=== PATIENT | female | born 2000 | race Asian ===

== ENCOUNTER 2023-08-16 21:20 | Inpatient (IN) ==
[2023-08-16] MEDS: ONDANSETRON INJ 2 MG/ML 2 ML VIAL IV STA (21:43)
[2023-08-16 22:08] LABS: Hematocrit (blood only) 37.1 % (37.0-47.0); Hemoglobin 12.1 g/dl (12.0-16.0); Mean Corpuscular Hgb Conc 32.6 g/dL (32.0-36.0); Mean Corpuscular Volume 76.7 fL (80.0-100.0); Mean Platelet Volume 8.8 fL (9.4-12.4); Platelet Count 420 K/uL (130-400); RDW Coefficient of Variation 14.1 % (11.5-14.5); RDW Standard Deviation 38.6 fL (36.4-46.3); Red Blood Count 4.84 M/uL (4.20-5.40); White Blood Count 17.29 K/ul (4.8-10.8)
--- NOTE | 2023-08-16 22:12 | Emergency Department Note ---
History of Present Illness General Chief complaint: Abdominal Pain Stated complaint: SOB, VOMITING, ABDOMINAL PAIN/PERSISTANT Time Seen by Provider: 08/16/23 21:59 History of Present Illness Maximum Pain Intensity: 8 This is a 22-year-old female presenting to the emergency department for evaluation of upper abdominal pain, nausea, and vomiting symptoms. Symptoms began around 5 PM, roughly 4-1/2 hours prior to her arrival to the ER. Patient rates the discomfort an 8/10. She has not had fevers or chills. No known exposure to disease. She denies chance of . No history of abdominal surgery. Home Medications Medication Instructions Recorded Confirmed Type acetaminophen 325 mg tablet 650 mg PO QID PRN Pain 08/16/23 08/16/23 History (Tylenol) Allergies Allergy/AdvReac Type Severity Reaction Status Date / Time No Known Allergies Allergy Unverified 08/16/23 22:58 Past Med/Surg History Social History Smoking Status: Never smoker Preferred Language: Yakut Feels Safe at Home: Yes Review of Systems A total of 10 systems reviewed and were otherwise negative Physical Exam Vital Signs Vital Signs - 24 hr 08/16/23 21:28 08/16/23 23:48 Temperature 36.7 C Temperature Source Temporal Artery Scan Pulse Rate 107 H Pulse Rate [Finger] 124 H Pulse Rhythm [Finger] Regular Pulse Strength [Finger] Normal Respiratory Rate 18 18 Respiratory Effort / Characteristics Non-Labored Spontaneous Non-Labored Respiratory Depth Normal Normal Blood Pressure 116/94 Blood Pressure [Left Arm] 115/80 Blood Pressure Mean 101 Blood Pressure Mean [Left Arm] 91 Blood Pressure Position Right Lateral Pulse Oximetry 100 100 Oxygen Delivery Method Room Air Room Air Sepsis Recent Fever Within 48 Hours No Sepsis New/Unexplained Change in Mental Status No Sepsis Action Taken by Nursing No Action Required VITALS: Vitals are noted on the nurse's note and reviewed by myself. Vital signs stable. GENERAL: Well-developed, well-nourished, female, who is in no acute distress and resting comfortably. Patient is cooperative with the examination. HEAD: Normocephalic atraumatic. NECK: Supple without nuchal rigidity. No lymphadenopathy. No thyromegaly. Cervical spine is nontender. HEART: Regular rate and rhythm without murmurs gallops or rubs. LUNGS: Clear to auscultation bilaterally without wheezes, rales or rhonchi. No retractions or accessory muscle use. ABDOMEN: Positive normal bowel sounds x 4. Soft, nontender, without masses or organomegaly. No guarding or rebound tenderness. MUSCULOSKELETAL: No muscle atrophy, erythema, or edema noted. Full range of motion in all extremities. Course Administered Medications Sodium Chloride (Nss) 1,000 mls @ 125 mls/hr IV .Q8H LUCRECIA Stop: 09/15/23 23:44 Last Admin: 08/17/23 00:01 Dose: 125 mls/hr Documented By: ALANNA Discontinued Medications Sodium Chloride (Nss) 1,000 mls @ 999 mls/hr IV .Q1H1M LUCRECIA Stop: 08/16/23 23:15 Last Infusion: 08/17/23 00:38 Dose: Infused Documented By: Admin: 08/16/23 23:32 Dose: 999 mls/hr Documented By: ALANNA Pantoprazole Sodium 40 mg/ (Syringe) 10 mls @ 5 mls/min IV NOW ONE Stop: 08/16/23 22:08 Last Admin: 08/16/23 22:29 Dose: 5 mls/min Documented By: ERICH Piperacillin Sod/Tazobactam Sod (Zosyn) 4.5 gm in 100 mls @ 200 mls/hr IV NOW ONE Stop: 08/17/23 00:13 Last Infusion: 08/17/23 00:39 Dose: Infused Documented By: Admin: 08/17/23 00:00 Dose: 200 mls/hr Documented By: ALANNA Lorazepam (Lorazepam 1 Mg/1 Ml Syr Ed Inj Use) 0.5 mg IV ONE STA Stop: 08/16/23 23:20 Last Admin: 08/17/23 01:12 Dose: Not Given Documented By: ALANNA Morphine Sulfate (Morphine Sulfate 4 Mg/Ml 1 Ml Carp\Vial) 4 mg IV Q30M PRN PRN Reason: Pain Stop: 08/30/23 23:38 Last Admin: 08/16/23 23:44 Dose: 4 mg Documented By: ALANNA Ondansetron HCl (Ondansetron Inj 2 Mg/Ml 2 Ml Vial) 4 mg IV NOW STA Stop: 08/16/23 21:34 Last Admin: 08/16/23 21:43 Dose: 4 mg Documented By: WILLIAMS Medical Decision Making Differential Diagnosis Differential diagnosis: Etiologies such as biliary colic, cholecystitis, hepatitis, pancreatitis, cardiac disease, pancreatitis, gastritis, peptic ulcer disease, appendicitis, cystitis, diverticulitis, mesenteric ischemia, inflammatory bowel disease, ileus, bowel obstruction, testicular/adnexal torsion, aortic pathology, shingles, as well as others were considered Laboratory Data 08/16/23 21:46 08/16/23 21:46 Lab Results 08/16/23 Range/Units 21:46 WBC 17.29 H (4.8-10.8) K/ul RBC 4.84 (4.20-5.40) M/uL Hgb 12.1 (12.0-16.0) g/dl Hct 37.1 (37.0-47.0) % MCV 76.7 L (80.0-100.0) fL MCH 25.0 (25.0-34.0) pg MCHC 32.6 (32.0-36.0) g/dL RDW Std Deviation 38.6 (36.4-46.3) fL RDW Coeff of Joshua 14.1 (11.5-14.5) % Plt Count 420 H (130-400) K/uL MPV 8.8 L (9.4-12.4) fL Immature Gran % (Auto) 0.5 % Neut % (Auto) 90.2 % Lymph % (Auto) 6.2 % [place] % (Auto) 2.8 % Eos % (Auto) 0.1 % Baso % (Auto) 0.2 % Neut # (Auto) 15.60 H (1.40-6.50) K/uL Lymph # (Auto) 1.07 L (1.20-3.40) K/uL [place] # (Auto) 0.48 (0.11-0.59) K/uL Eos # (Auto) 0.01 (0.00-0.50) K/uL Baso # (Auto) 0.04 (0.00-0.20) K/uL Immature Gran # (Auto) 0.09 (0.01-0.20) K/uL Sodium 136 (136-145) mmol/L Potassium 3.5 (3.5-5.1) mmol/L Chloride 104 (98-107) mmol/L Carbon Dioxide 21 (21-32) mmol/L Anion Gap 11 (3-11) BUN 10 (6-23) mg/dl Creatinine 0.59 L (0.6-1.2) mg/dl Est Cr Clr Drug Dosing 114.3 ml/min Est GFR ( Amer) > 150.0 ml/min Est GFR (Non-Af Amer) 131.9 ml/min BUN/Creatinine Ratio 16.9 (10-20) Glucose 138 H (70-99(Fasting)) mg/dl Calcium 9.8 (8.6-10.3) mg/dl Total Bilirubin 0.5 (0.2-1.0) mg/dl AST 12 L (13-39) U/L ALT 9 (7-52) U/L Alkaline Phosphatase 71 (34-104) U/L Total Protein 8.6 H (6.0-8.3) gm/dl Albumin 4.5 (3.4-5.0) gm/dl Globulin 4.1 H (2.5-4.0) gm/dl Albumin/Globulin Ratio 1.1 (0.9-2) Lipase 27 (11-82) U/L HCG, Qual Negative (Negative) Imaging Data Radiologist's Impression: Abdomen/Pelvis CT 08/16/23 22:07 CR Exam(s): CT ABDOMEN + PELVIS Without Contrast EXAM: CT Abdomen and Pelvis Without Intravenous Contrast CLINICAL HISTORY: Reason for exam: upper abdominal pain, n/v. TECHNIQUE: Axial computed tomography images of the abdomen and pelvis without intravenous contrast. CTDI is 7.65 mGy and DLP is 326.39 mGy-cm. Automated exposure control was utilized for the study. A dose lowering technique was utilized adhering to the principles of ALARA. COMPARISON: No relevant prior studies available. FINDINGS: Lung bases: Unremarkable. No mass. No consolidation. ABDOMEN: Liver: Unremarkable. Gallbladder and bile ducts: Unremarkable. No calcified stones. No ductal dilation. Pancreas: Unremarkable. No ductal dilation. Spleen: Unremarkable. No splenomegaly. Adrenals: Unremarkable. No mass. Kidneys and ureters: Unremarkable. No obstructing stones. No hydronephrosis. Stomach and bowel: Circumferential wall thickening of the terminal ileum, concerning for enteritis. This has contributed to low-grade partial small bowel obstruction. PELVIS: Appendix: Mildly prominent appendix measuring up to 6 mm, with surrounding inflammation, concerning for appendicitis. Bladder: Unremarkable. No stones. Reproductive: Unremarkable as visualized. ABDOMEN and PELVIS: Intraperitoneal space: Unremarkable. No free air. No significant fluid collection. Bones/joints: No acute fracture. No dislocation. Soft tissues: Unremarkable. Vasculature: Unremarkable. No abdominal aortic aneurysm. Lymph nodes: Unremarkable. No enlarged lymph nodes. IMPRESSION: 1. Mildly prominent appendix measuring up to 6 mm, with surrounding inflammation, concerning for appendicitis. 2. Circumferential wall thickening of the terminal ileum, concerning for enteritis. This has contributed to low-grade partial small bowel obstruction. Communications: Verify Receipt Electronically signed by: Jose Hdz MD 08/16/23 23:36 PM MDM Narrative Physical exam and history were performed. Nursing notes, EMR, and Medication List were personally reviewed. No social concerns were identified as barriers to patients care. Patient appears to have abdominal pain bringing her to the ER. IV access was established and labs were obtained. Most of her discomfort is upper abdomen, however symptoms are relatively new. She was given IV Zofran and IV Protonix here in the ER. Patient has persistent hiccups and was given a small dose of Ativan to try and abort these. Patient's blood work is as above and was reviewed. She does have an elevated white blood cell count of 17,000. She does not have significant anemia or gross electrolyte imbalance. She is not . Lipase and transaminases are not diagnostic. Because of her pain and elevated white count she was sent to CT scan for imaging of her abdomen and pelvis with CT scan. CT scan was reviewed by myself and radiology and may suggest early appendicitis. I did engage with the surgical team, who did evaluate the patient here in the ER. I attempted to speak with the patient's family by telephone, however [place] and the telephone continued to disconnect. Ultimately the patient was given morphine and Zosyn here in the ER. Please see the hospitalist/surgical team dictations for further patient course, plan, disposition. The chart was completed utilizing [employer] Voice Recognition Software. Grammatical errors, random word insertions, pronoun errors, and incomplete sentences are an occasional consequence of this system due to software limitations, ambient noise, and hardware issues. Any formal questions or concerns about the content, text, or information contained within the body of this dictation should be directly addressed to the provider for clarification. . Impression & Plan Acute appendicitis Discharge Plan Visit Data Chief Complaint: Abdominal Pain Stated Complaint: SOB, VOMITING, ABDOMINAL PAIN/PERSISTANT ED Provider: Raul Robin ED Midlevel Provider: Taqueria Gonzalez Discharge Problem: Acute appendicitis Patient Disposition: Admitted As Inpatient Discharge Instructions Interventions: ED Discharge Assessment Last Done: 08/17/23 01:56
[2023-08-16 22:23] LABS: Alanine Aminotransferase 9 U/L (7-52); Albumin Globulin Ratio 1.1 (0.9-2); Albumin Level 4.5 gm/dl (3.4-5.0); Alkaline Phosphatase 71 U/L (34-104); Anion Gap 11 (3-11); Aspartate Aminotransferase 12 U/L (13-39); BUN Creatinine Ratio 16.9 (10-20); Bilirubin,Total 0.5 mg/dl (0.2-1.0); Blood Urea Nitrogen 10 mg/dl (6-23); Calcium 9.8 mg/dl (8.6-10.3); Carbon Dioxide 21 mmol/L (21-32); Chloride 104 mmol/L (98-107); Creatinine Clr Calc Pharmacy 114.3 ml/min; Est GFR (African American) > 150.0 ml/min; Est GFR (Non-African American) 131.9 ml/min; Globulin 4.1 gm/dl (2.5-4.0); Glucose 138 mg/dl (70-99(Fasting)); Lipase 27 U/L (11-82); Potassium 3.5 mmol/L (3.5-5.1); Sodium 136 mmol/L (136-145); Total Protein 8.6 gm/dl (6.0-8.3)
[2023-08-16 22:28] LABS: Basophils # (auto) 0.04 K/uL (0.00-0.20); Basophils % (auto) 0.2 %; Eosinophils # (auto) 0.01 K/uL (0.00-0.50); Eosinophils % (auto) 0.1 %; Immature Granulocytes # (auto) 0.09 K/uL (0.01-0.20); Immature Granulocytes % (auto) 0.5 %; Lymphocytes # (auto) 1.07 K/uL (1.20-3.40); Lymphocytes % (auto) 6.2 %; Monocytes # (auto) 0.48 K/uL (0.11-0.59); Monocytes % (auto) 2.8 %; Neutrophils % (auto) 90.2 %
[2023-08-16 22:29] LABS: Pregnancy Test, Serum Negative (Negative)
[2023-08-16] MEDS: PANTOprazole 40 MG in SYRINGE 0 ML IV ONE (22:29)
[2023-08-16] MEDS: SODIUM CHLORIDE 0.9% 1,000 ML IV SCH (23:32)
--- NOTE | 2023-08-16 23:37 | CT Scan Report ---
Exam(s): CT ABDOMEN + PELVIS Without Contrast EXAM: CT Abdomen and Pelvis Without Intravenous Contrast CLINICAL HISTORY: Reason for exam: upper abdominal pain, n/v. TECHNIQUE: Axial computed tomography images of the abdomen and pelvis without intravenous contrast. CTDI is 7.65 mGy and DLP is 326.39 mGy-cm. Automated exposure control was utilized for the study. A dose lowering technique was utilized adhering to the principles of ALARA. COMPARISON: No relevant prior studies available. FINDINGS: Lung bases: Unremarkable. No mass. No consolidation. ABDOMEN: Liver: Unremarkable. Gallbladder and bile ducts: Unremarkable. No calcified stones. No ductal dilation. Pancreas: Unremarkable. No ductal dilation. Spleen: Unremarkable. No splenomegaly. Adrenals: Unremarkable. No mass. Kidneys and ureters: Unremarkable. No obstructing stones. No hydronephrosis. Stomach and bowel: Circumferential wall thickening of the terminal ileum, concerning for enteritis. This has contributed to low-grade partial small bowel obstruction. PELVIS: Appendix: Mildly prominent appendix measuring up to 6 mm, with surrounding inflammation, concerning for appendicitis. Bladder: Unremarkable. No stones. Reproductive: Unremarkable as visualized. ABDOMEN and PELVIS: Intraperitoneal space: Unremarkable. No free air. No significant fluid collection. Bones/joints: No acute fracture. No dislocation. Soft tissues: Unremarkable. Vasculature: Unremarkable. No abdominal aortic aneurysm. Lymph nodes: Unremarkable. No enlarged lymph nodes. IMPRESSION: 1. Mildly prominent appendix measuring up to 6 mm, with surrounding inflammation, concerning for appendicitis. 2. Circumferential wall thickening of the terminal ileum, concerning for enteritis. This has contributed to low-grade partial small bowel obstruction. Communications: Verify Receipt Electronically signed by: Jose Hdz MD 08/16/23 23:36 PM
[2023-08-16] MEDS: MoRPHine SULFATE 4 MG/ML 1 ML CARP\\VIAL IV PRN (23:44)
--- NOTE | 2023-08-16 23:51 | History & Physical Report ---
Date of Service August 16, 2023 Assessment & Plan (1) Abdominal pain: Plan Due to the patient's clinical presentation, labs, and findings on imaging we will admit her to the hospital and proceed as follows: -provide analgesics -provide anti-emetics -implement npo status -provide IVF for hydration -initiate antibiotics in the form of zosyn -repeat labs in the am -it is not entirely certain if the patient has an appendicitis or is suffering from an enteritis or inflammatory bowel disease -will will monitor her clinically with the above noted treatment plans, and upon re-evaluation in the morning by my attending surgeon, Dr. Jayson Serna, a determination will be made if the patient requires an appendectomy. At the time of my interview the patient was nontoxic-appearing. She was normotensive and afebrile. She did have a noted tachycardia but I feel this may be somewhat secondary to dehydration and will hopefully improve with hydration measures. -SCDs will be used for DVT prophylaxis, no chemical means until it is ascertained if any surgical intervention will be required She will be a level 1 full code History of Present Illness Chief Complaint: Abdominal Pain 22 year old female presented to the ED secondary to abdominal pain. Primary Care Provider: NO PCP This is a 22-year-old female who presented the emergency department secondary to abdominal pain that began around 4:30 PM on 08/16/2023. The patient notes that the abdominal pain is primarily in the periumbilical region and she describes it as a sharp/piercing pain that comes and goes. She has had associated nausea and vomiting. She does note she took her temperature and she was not febrile. She does not report any palliative or provocative factors other than that the pain was relieved with morphine administered in the emergency department. She has never had any prior surgeries before. She did add that approximately 2 to 3 weeks ago she had similar pain but not as severe and this self resolved after sleeping for several hours Since arrival to the emergency department the patient has had labs and imaging which I independently reviewed. CT scan of the abdomen and pelvis showed the appendix was mildly prominent measuring approximately 6 mm with some surrounding inflammation. This raises concern for an appendicitis. The patient was also noted to have a circumferential wall thickening of the terminal ileum concerning for an enteritis which was also causing a partial small bowel obstruction. CBC reveal ed WBC was elevated at 17.2, hemoglobin and hematocrit were normal. Platelet count was 420K. Chemistry profile showed sodium and potassium were normal. BUN and Creatinine were non-elevated. A test was (-). At the time of my interview she was resting comfortably in bed and she was no distress. Concerning past medical history she denies any medical problems Concerning past surgical history she denies any surgeries Concerning allergies and medications she has no allergies and does not take any medicines Concerning social history she does not smoke Concerning family history there is no family history of inflammatory bowel disease Allergies Allergy/AdvReac Type Severity Reaction Status Date / Time No Known Allergies Allergy Unverified 08/16/23 22:58 Home Medications Medication Instructions Recorded Confirmed Type acetaminophen 325 mg tablet 650 mg PO QID PRN Pain 08/16/23 08/16/23 History (Tylenol) Past Med/Surg History Social History Smoking Status: Never smoker Second Hand Exposure: No; Do You Dip or Chew Tobacco: No; Hx Alcohol Use: Yes Alcohol type: other Hx Substance Use: No Preferred Language: Liberian Communication Ability: Effective Optical Lab Technician Required: No Beliefs That Will Affect Care: None Current Living Situation: Other Current Living Situation Comment: apartment with roommates Other Information That Helps Us Care for You: No Feels Safe at Home: Yes Safety Concerns: Feels Safe At This Time Assistive Devices: None Review of Systems Constitutional: no fever Ear, Nose, Mouth, Throat: no ear pain Respiratory: no cough and no dyspnea Cardiovascular: no chest pain Gastrointestinal: as per Subjective / HPI Genitourinary: no dysuria Musculoskeletal: no back pain Integumentary: no rash Neurologic: no localized weakness Physical Exam Constitutional: WD/WN, vitals as above Eyes: no conjunctival abnormality ENMT: Ears: no hearing impairment and no external ear abnormality Mouth: no oropharynx abnormality Neck: trachea midline Respiratory: normal respiratory effort; no respiratory distress and no labored breathing Cardiovascular: Rate/Rhythm: regular rate and regular rhythm Vessels: dorsalis pedis pulses present and radial pulses present Gastrointestinal (Abdomen): Patient's abdomen is soft and nondistended. Bowel sounds are present. The patient did have pain only in the periumbilical region directly over her umbilicus with deep palpation. There is no pain with palpation in the right lower quadrant over McBurney's point. No rebound tenderness or guarding was present. Musculoskeletal: No calf tenderness Skin: no rashes Neurologic: moves all extremities Psychiatric: A+Ox3, euthymic affect Results & Data Results & Data Vital Signs (Past 12 Hours) Vital Signs Temp Pulse Pulse Resp BP BP Pulse Ox 08/16/23 23:48 124 H 18 115/80 100 08/16/23 21:28 36.7 C 107 H 18 116/94 100 O2 Del Method 08/16/23 23:48 Room Air 08/16/23 21:28 Room Air Supervising Physician Co-Signing Physician Notes I personally saw and evaluated the patient with John Guan PA-C and agree with the assessment and plan. 22 yo female with acute appendicitis, less likely IBD Her CT images and results were personally viewed and interpreted by myself She has inflammation in the RLQ and a dilated appendix consistent with acute appendicitis I think the inflammation of the terminal ileum is secondary to her appendictitis Will admit the patient and take her to OR tomorrow for laparoscopic appendectomy, possible open Keep NPO, IVF, ABX, pain control PG Care Time/CCT Total # of Minutes Spent Total Time Spent with Patient: Total time spent is greater than 50% in coordination of care (as documented) at patient's floor/unit and/or counseling patient: Coding Level of Care Code 12126 INT INP/OBS CARE 3/75MIN Diagnoses Abdominal pain R10.9
[2023-08-17] MEDS: PIPERACILLIN/TAZOBACTAM 4.5 GM/100 ML BAG IV ONE
[2023-08-17] MEDS: SODIUM CHLORIDE 0.9% 1,000 ML IV SCH (00:01)
[2023-08-17] MEDS ORDERED: MoRPHine SULFATE 4 MG/ML 1 ML CARP\\VIAL IV PRN ×2 (01:08→13:24)
[2023-08-17] MEDS ORDERED: ONDANSETRON INJ 2 MG/ML 2 ML VIAL IV PRN ×2 (01:08→10:35)
[2023-08-17] MEDS ORDERED: ACETAMINOPHEN 1,000 MG/100 ML VIAL IV PRN (01:08)
[2023-08-17] MEDS: LORazepam 1 MG/1 ML SYR ED Inj Use IV STA (01:12)
[2023-08-17 04:24] LABS: Appearance Urine Clear (Clear); Bilirubin Urine Negative (Negative); Blood Urine Negative (Negative); Color Urine Yellow; Glucose Urine UA Negative (Negative); Ketones Urine 2+ (Negative); Leukocyte Esterase Urine Negative (Negative); Nitrite Urine Negative (Negative); Protein Urine Negative (Negative); Specific Gravity Urine 1.014 (1.000-1.030); Urobilinogen Urine Negative (Negative); pH Urine 8.5 (4.5-7.5)
[2023-08-17] MEDS: PIPERACILLIN/TAZOBACTAM 4.5 GM in DEXTROSE 5% MINI-B 100 ML IV SCH (06:23)
[2023-08-17 07:16] LABS: Basophils # (auto) 0.02 K/uL (0.00-0.20); Basophils % (auto) 0.2 %; Hematocrit (blood only) 30.5 % (37.0-47.0); Hemoglobin 9.9 g/dl (12.0-16.0); Immature Granulocytes # (auto) 0.04 K/uL (0.01-0.20); Immature Granulocytes % (auto) 0.3 %; Lymphocytes # (auto) 1.73 K/uL (1.20-3.40); Lymphocytes % (auto) 14.3 %; Mean Corpuscular Hemoglobin 24.9 pg (25.0-34.0); Mean Corpuscular Hgb Conc 32.5 g/dL (32.0-36.0); Mean Corpuscular Volume 76.6 fL (80.0-100.0); Mean Platelet Volume 9.1 fL (9.4-12.4); Monocytes # (auto) 0.87 K/uL (0.11-0.59); Monocytes % (auto) 7.2 %; Neutrophils # (auto) 9.48 K/uL (1.40-6.50); Platelet Count 339 K/uL (130-400); RDW Coefficient of Variation 14.3 % (11.5-14.5); RDW Standard Deviation 39.7 fL (36.4-46.3); Red Blood Count 3.98 M/uL (4.20-5.40); White Blood Count 12.14 K/ul (4.8-10.8)
[2023-08-17 07:26] LABS: Anion Gap 5 (3-11); BUN Creatinine Ratio 11.3 (10-20); Blood Urea Nitrogen 7 mg/dl (6-23); Calcium 8.1 mg/dl (8.6-10.3); Carbon Dioxide 25 mmol/L (21-32); Chloride 109 mmol/L (98-107); Creatinine Clr Calc Pharmacy 110.1 ml/min; Est GFR (African American) > 150.0 ml/min; Est GFR (Non-African American) 129.8 ml/min; Glucose 99 mg/dl (70-99(Fasting)); Sodium 139 mmol/L (136-145)
--- NOTE | 2023-08-17 09:11 | Surgery Progress Note ---
Date of Service August 17, 2023 Assessment & Plan (1) Acute appendicitis: Plan: Will plan on taking her today for laparoscopic appendectomy, possible open Consent was obtained, risks discussed including bleeding, infection, abscess, leak Admission and Anticipated Discharge Date Admission Date: August 17, 2023 Subjective Pt seen and examined. Still with RLQ abdominal pain, but improved. Afebrile. No N/V. Review of Systems Constitutional: no fever and no chills Physical Exam Constitutional: WD/WN, vitals as above Gastrointestinal (Abdomen): Inspection/Auscultation: abdomen normal to inspection; abdomen not distended Percussion/Palpation: + abdomen tender (RLQ) and abdomen soft; no guarding, abdomen not rigid and no hernia Results & Data Vital Signs (Past 12 Hours) Vital Signs Temp Pulse Pulse Resp BP BP Pulse Ox 08/17/23 07:23 36.6 C 85 18 122/67 99 08/17/23 02:56 08/17/23 02:56 36.4 C L 106 H 18 111/75 100 08/17/23 01:30 98 H 16 115/73 99 08/16/23 23:48 124 H 18 115/80 100 08/16/23 21:28 36.7 C 107 H 18 116/94 100 O2 Del Method 08/17/23 07:23 Room Air 08/17/23 02:56 Room Air 08/17/23 02:56 Room Air 08/17/23 01:30 Room Air 08/16/23 23:48 Room Air 08/16/23 21:28 Room Air PG Care Time/CCT Total # of Minutes Spent Total Time Spent with Patient: Total time spent is greater than 50% in coordination of care (as documented) at patient's floor/unit and/or counseling patient: Coding Level of Care Code 55407 SUB INP/OBS CARE 07/13MIN Diagnoses Acute appendicitis K35.80
[2023-08-17] MEDS: LACTATED RINGER'S 1,000 ML IV SCH ×2 (09:50→13:40)
--- NOTE | 2023-08-17 10:17 | Anesthesiology Consultation ---
Date of Service August 17, 2023 Assessment & Plan Chart Review Chart Review: Acceptable Risk for Surgery and Patient NOT seen in Pre Admission Testing Consults Requested none ASA [id number] Proposed Anesthesia Anesthesia Type: General Risk / Benefits Reviewed With: PT / POA / Parent / Guardian, Accepts Plan and Informed Consent Obtained History Surgery Operation Date: 08/17/23 11:25 Proposed Procedures p Laparoscopic Appendectomy - Jayson Serna, DO Height/Weight Height: 5 ft 2 in Weight: 48.2 kg Allergies Allergy/AdvReac Type Severity Reaction Status Date / Time No Known Allergies Allergy Verified 08/17/23 09:48 Medications Home Medications Medication Instructions Recorded Confirmed Last Taken acetaminophen 325 mg tablet 650 mg PO QID PRN Pain 08/16/23 08/16/23 Unknown (Tylenol) Active Medications Generic Name Dose Route Start Last Admin Trade Name Freq PRN Reason Stop Dose Admin Sodium Chloride 1,000 mls @ 125 mls/hr 08/16/23 23:45 08/17/23 00:01 Nss IV 09/15/23 23:44 125 mls/hr .Q8H LUCRECIA Administration Piperacillin Sod/Tazobactam 100 mls @ 25 mls/hr 08/17/23 06:00 08/17/23 06:23 Sod 4.5 gm/ Dextrose IV 08/27/23 01:14 25 mls/hr Q8H LUCRECIA Administration Protocol Lactated Ringer's 1,000 mls @ 15 mls/hr 08/17/23 09:45 08/17/23 09:50 Lr IV 09/16/23 09:44 15 mls/hr .Q24H LUCRECIA Administration NPO Date Last Intake of Fluids: 08/16/23 Time Last Intake of Fluids: 19:00 Date Last Intake of Solids: 08/16/23 Time Last Intake of Solids: 13:00 Exercise / Class Metabolic Activity 1 > 8 Run/Swim/Ski/Tennis Past Anesthesia History No Hx of Anesthesia Complications and No Family Hx of Anesthesia Complications History of PONV No Hx of PONV and No Hx of Motion Sickness Social History Smoking Status: Never smoker Do You Dip or Chew Tobacco: No Hx Alcohol Use: Yes Alcohol type: other alcohol intake frequency: holidays/special occasions only Hx Substance Use: No Physical Exam Vital Signs Last Vital Signs Temp 36.9 C 08/17/23 09:43 Pulse 108 H 08/17/23 09:43 Resp 20 08/17/23 09:43 BP 109/76 08/17/23 09:43 Pulse Ox 100 08/17/23 09:43 O2 Del Method Room Air 08/17/23 09:43 Constitutional not cachectic ENMT Mouth: no dentition abnormality Thyromental Distance: < 3.5 Finger Breadths Mallampati Class: II Neck normal visual inspection and trachea midline; neck extension not limited Respiratory normal respiratory effort Auscultation: lungs clear to auscultation bilaterally Cardiovascular Rate/Rhythm: regular rate and regular rhythm Heart Sounds: no murmur Vessels: no carotid bruit Musculoskeletal Spine: normal cervical ROM and no pain with cervical ROM Extremities: extremities normal to inspection; full ROM of extremities Neurologic moves all extremities Motor/Sensory: no sensory deficit Psychiatric Orientation: alert and oriented x 3 Testing Laboratory Results 08/17/23 06:51 08/17/23 06:51 Urine Color Yellow 08/17/23 02:05 Urine Appearance Clear (Clear) 08/17/23 02:05 Urine pH 8.5 (4.5-7.5) H 08/17/23 02:05 Ur Specific [place] 1.014 (1.000-1.030) 08/17/23 02:05 Urine Protein Negative (Negative) 08/17/23 02:05 Urine Glucose (UA) Negative (Negative) 08/17/23 02:05 Urine Ketones 2+ (Negative) H 08/17/23 02:05 Urine Nitrite Negative (Negative) 08/17/23 02:05 Ur Leukocyte Esterase Negative (Negative) 08/17/23 02:05
[2023-08-17] MEDS ORDERED: FLUMAZENIL 0.1 MG/1 ML 10 ML VIAL IV PRN (10:35)
[2023-08-17] MEDS ORDERED: ePHEDrine sulfate 50 MG/ML AMP IV PRN (10:35)
[2023-08-17] MEDS ORDERED: PROMETHAZINE HCL 6.25 MG in SODIUM CHLORIDE 0.9% 50 ML IV PRN (10:35)
[2023-08-17] MEDS ORDERED: NALOXONE HCL 0.4 MG/1 ML VIAL/CARP IV PRN (10:35)
[2023-08-17] MEDS ORDERED: ATROPINE SULFATE 0.1 MG/ML 10ML SYR IV PRN (10:35)
[2023-08-17] MEDS ORDERED: MIDAZOLAM HCL 1 MG/ML 2ML VIAL ONE (10:41)
[2023-08-17] MEDS ORDERED: PROPOFOL IV EMULSION 10 MG/ML 20 ML VIAL IV ONE (10:41)
[2023-08-17] MEDS ORDERED: GLYCOPYRROLATE 0.2 MG/ML VIAL ONE ×2 (10:41→11:17)
[2023-08-17] MEDS ORDERED: ONDANSETRON INJ 2 MG/ML 2 ML VIAL ONE (10:41)
[2023-08-17] MEDS ORDERED: NEOSTIGMINE METHYLSULFATE 1 MG/ML 10ML VIAL ONE (10:41)
[2023-08-17] MEDS ORDERED: ROCURONIUM BROMIDE 10 MG/ML 5 ML VIAL IV ONE (10:41)
[2023-08-17] MEDS ORDERED: SUCCINYLCHOLINE CHLORIDE 20 MG/ML 10 ML VIAL IV ONE (10:41)
[2023-08-17] MEDS ORDERED: DEXAMETHASONE SOD INJ 4 MG/ML VIAL ONE (10:41)
[2023-08-17] MEDS ORDERED: fentaNYL citrate PF 100 MCG/2 ML VIAL ONE ×2 (10:41→11:25)
[2023-08-17] MEDS: BUPIVACAINE/EPINEPHRINE 0.5% MPF 1:200,000 30 ML VIAL ONE (11:46)
--- NOTE | 2023-08-17 11:57 | Post Operative Brief Note ---
PG Immediate Post Op with CF Date of Surgery August 17, 2023 Pre & Post Diagnosis Operation Date: 08/17/23 11:25 Pre-Op Diagnosis: Acute Appendicitis Post-Op Diagnosis: Acute Appendicitis, inflamed TI, creeping fat on TI I identified the patient and participated in the time-out.: Yes Procedure Operation Date: 08/17/23 11:25 Actual Procedures p Laparoscopic Appendectomy(Not Applicable) - Jayson Serna DO Surgeon Jayson Serna DO [employer] Josefina Ritchie PA-C Estimated Blood Loss 5 Findings See Below Acutely inflamed, dilated appendix, inflamed TI with creeping fat Specimens Specimen Description: A: Appendix Drains Laureano Catheter (inserted after induction of anesthesia by Adriana De La Garza RN and removed at end of procedure) Anesthesia Type General Complications none Disposition Disposition: Recovery Room
--- NOTE | 2023-08-17 12:02 | Operative Report ---
PG Post Operative Report Pre & Post Diagnosis Operation Date: 08/17/23 11:25 Pre-Op Diagnosis: Acute Appendicitis Post-Op Diagnosis: Acute Appendicitis, inflamed TI, creeping fat of TI I identified the patient and participated in the time-out.: Yes Procedure Operation Date: 08/17/23 11:25 Actual Procedures p Laparoscopic Appendectomy(Not Applicable) - Jayson Serna DO Surgeon Jayson Serna DO Soldering Inspector Josefina Ritchie PA-C Estimated Blood Loss 5 Findings See Below Acutely inflamed, dilated appendix, inflamed TI with creeping fat Specimens Appendix to pathology Drains None Anesthesia Type General Complications none Disposition Disposition: Recovery Room Indications 22 yo female with acute appendicitis Description of Procedure The patient was brought to the OR and placed in the supine position and SCD's placed. At this time she underwent general endotracheal anesthesia without incident. At this time a Laureano catheter was placed under sterile conditions. Her abdomen was prepped and draped in the usual sterile fashion. She was given appropriate pre-operative antibiotics. A timeout was called, the procedure was verified as Laparoscopic appendectomy, possible open. Surgical, anesthesia and nursing teams agreed and the procedure was begun. After injection of 0.25% Marcaine with epinephrine, a supraumbilical incision was made using a #11 blade scalpel and carried down to the fascia with a hemostat. The abdomen was then elevated with towel clamps and entered using the Veress needle confirming position using the saline drop test. Pneumoperitoneum was established and 5mm trocar was placed. Laparoscope was introduced. No injury was seen from our entrance to the abdomen. At this time a 5mm suprapubic port and 12mm LLQ port were placed under direct visualization. The patient was placed in Trendelenburg and rotated to the left. At this time the appendix was visualized and the tip was freed and elevated toward the abdominal wall. The appendix appeared inflamed, dilated and edematous. The terminal ileum as well as some of the cecum were also inflamed. Creeping fat was seen on the TI. A window was created in the mesoappendix at the base of the appendix. The cecum where the appendiceal base was attached was minimally inflamed. A 45mm bob load stapler was then fired across the base of the appendix which appeared healthy. The mesoappendix was then taken using Harmonic device. The appendix was then placed in an Endocatch bag and removed through the LLQ port site. Staple line was inspected and was intact. Hemostasis was complete. The 12 mm port was then closed at the fascial level using a 0 Vicryl suture using the suture passer. All ports were removed under direct visualization and no bleeding was noted. The abdomen was desufflated and the skin was closed using 4-0 Monocryl in a subcuticular fashion. Sterile dressings were applied. Laureano catheter was removed. The patient was then awakened from anesthesia having remained stable throughout the entire case and transported to PACU. All needle and sponge counts were correct x 2. The physician physiotherapy assistant was present and scrubbed for the entire procedure. She was essential in positioning, prepping and draping the patient, driving the laparoscope, closure of the incisions and placement of the dressings. I attest to the content of the Intraoperative Record and any orders documented therein. Any exceptions are noted below.
[2023-08-17] MEDS: fentaNYL citrate PF 100 MCG/2 ML VIAL IV PRN (12:10)
[2023-08-17] MEDS ORDERED: oxyCODONE HCL IR 5 MG TAB (IMMEDIATE RELEASE) PO PRN (13:24)
--- NOTE | 2023-08-17 13:26 | Anesthesiology Progress Note ---
Date of Service August 17, 2023 Anesthesia Post Procedure Vital Signs Vital Signs: Temp Pulse Pulse Pulse Resp BP BP 08/17/23 12:50 36.6 C 52 L 20 92/53 L 08/17/23 12:40 36.6 C 61 20 89/52 L 08/17/23 12:30 97 H 23 100/59 L 08/17/23 12:20 68 23 100/59 L 08/17/23 12:10 97 H 24 111/65 08/17/23 12:01 36.3 C L 120 H 14 112/67 08/17/23 09:43 36.9 C 108 H 20 109/76 08/17/23 07:23 36.6 C 85 18 122/67 08/17/23 02:56 08/17/23 02:56 36.4 C L 106 H 18 111/75 08/17/23 01:30 98 H 16 115/73 08/16/23 23:48 124 H 18 115/80 08/16/23 21:28 36.7 C 107 H 18 116/94 Pulse Ox O2 Del Method O2 Flow Rate 08/17/23 12:50 100 Room Air 08/17/23 12:40 99 Room Air 08/17/23 12:30 100 Room Air 08/17/23 12:20 100 Oxymask 1 08/17/23 12:10 100 Oxymask 3 08/17/23 12:01 100 Oxymask 5 08/17/23 09:43 100 Room Air 08/17/23 07:23 99 Room Air 08/17/23 02:56 Room Air 08/17/23 02:56 100 Room Air 08/17/23 01:30 99 Room Air 08/16/23 23:48 100 Room Air 08/16/23 21:28 100 Room Air Pain Intensity Bilateral Upper Abdomen: Pain Intensity: 6 Transfer of Care Handoff Completed per policy Notes Mental Status: alert / awake / arousable Patient Amnestic to Procedure: Yes Nausea / Vomiting: adequately controlled Pain: adequately controlled Airway Patency, RR, SpO2: stable & adequate BP & HR: stable & adequate Hydration State: stable & adequate Anesthetic Complications: no major complications apparent
[2023-08-17] MEDS: MoRPHine SULFATE 2 MG/ML CARP IV PRN (13:37)
[2023-08-17] MEDS: oxyCODONE HCL IR 5 MG TAB (IMMEDIATE RELEASE) PO PRN (16:24)
--- NOTE | 2023-08-17 19:54 | Communication Note ---
Date of Service: August 17, 2023 This is a 22-year-old female who is well-known to this provider. She was admitted last night due to concern for appendicitis. She underwent a laparosc opic appendectomy earlier today by Dr. Jayson Serna. I was asked to evaluate this patient due to some concern for some soiling/bleeding of her surgical dressings. The patient was seen and evaluated at the bedside. The patient's umbilical dressing is clean, dry, intact. The patient's suprapubic incision had a small amount of dried blood on the dressing. The dressing was removed and the incisi on was inspected. There is no evidence of active bleeding. A new sterile dressing was applied. The patient's lateral incision again had some dried blood on the dressing. This was removed and the incision was inspected and again no active bleeding was noted. A new sterile dressing was applied. The patient was provided with reassurance. Will continue to monitor while she is hospitalized.
[2023-08-18 09:01] LABS: Basophils # (auto) 0.01 K/uL (0.00-0.20); Basophils % (auto) 0.1 %; Eosinophils # (auto) 0.01 K/uL (0.00-0.50); Eosinophils % (auto) 0.1 %; Hematocrit (blood only) 31.6 % (37.0-47.0); Hemoglobin 9.8 g/dl (12.0-16.0); Immature Granulocytes # (auto) 0.03 K/uL (0.01-0.20); Immature Granulocytes % (auto) 0.4 %; Lymphocytes # (auto) 2.44 K/uL (1.20-3.40); Lymphocytes % (auto) 34.4 %; Mean Corpuscular Hemoglobin 24.4 pg (25.0-34.0); Mean Corpuscular Volume 78.6 fL (80.0-100.0); Mean Platelet Volume 9.1 fL (9.4-12.4); Monocytes # (auto) 0.53 K/uL (0.11-0.59); Monocytes % (auto) 7.5 %; Neutrophils # (auto) 4.07 K/uL (1.40-6.50); Neutrophils % (auto) 57.5 %; Platelet Count 296 K/uL (130-400); RDW Coefficient of Variation 14.6 % (11.5-14.5); RDW Standard Deviation 41.7 fL (36.4-46.3); Red Blood Count 4.02 M/uL (4.20-5.40); White Blood Count 7.09 K/ul (4.8-10.8)
[2023-08-18 09:17] LABS: Anion Gap 8 (3-11); Blood Urea Nitrogen 6 mg/dl (6-23); Calcium 8.8 mg/dl (8.6-10.3); Carbon Dioxide 26 mmol/L (21-32); Chloride 106 mmol/L (98-107); Creatinine Clr Calc Pharmacy 113.8 ml/min; Est GFR (African American) > 150.0 ml/min; Est GFR (Non-African American) 131.2 ml/min; Glucose 83 mg/dl (70-99(Fasting)); Potassium 3.4 mmol/L (3.5-5.1); Sodium 140 mmol/L (136-145)
--- NOTE | 2023-08-18 09:59 | Gastrointestinal Consultation ---
Date of Consultation August 18, 2023 Assessment & Plan (1) Abnormal computed tomography of cecum and terminal ileum: (2) Acute appendicitis: (3) Abdominal pain: Plan Patient is a 22 y.o. female admitted with acute onset of abdominal pain and abnormal imaging of the TI and appendix s/p appy with clinical concern for underlying IBD. 1. Diet advancement per surgical team. 2. Outpatient GI follow up within 2 weeks. 3. Will discuss outpatient colonoscopy at that time. 4. GI sign off. Contact GI rn on site if any clinical concerns. Supervising Physician Co-Signing Physician Notes I saw the patient and agree with the findings as documented by SH[facility] [place] History of Present Illness Reason for Consultation: ?Crohn's s/p appy Requesting Physician: Joesfina Ritchie PA-C Attending Physician: Jayson Serna DO History of Present Illness Patient is a 22 y.o. female with a history of abdominal pain which began acutely two days ago. She presented to the ER and did undergo a diagnostic CT a/p which demonstrated a dilated appendix with TI inflammatory change. She is POD #1 from [facility] by Dr. Serna. GI has been consulted in regard to TI inflammation and possibility of underlying Crohn's disease. She denies any prior history of abdominal pain, diarrhea, constipation, nausea, vomiting, melena, hematochezia, skin rashes, eye pain/redness, joint pain or fatigue. She states she is passing flatus and some mild bloating postoperatively. Tolerating clear liquid diet. Leukocytosis has resolved. H&H is stable. Mild incisional pain but otherwise, no current complaints. Denies any family history of IBD. Allergies Allergy/AdvReac Type Severity Reaction Status Date / Time No Known Allergies Allergy Verified 08/17/23 09:48 Home Medications Medication Instructions Recorded Confirmed Type acetaminophen 325 mg tablet 650 mg PO QID PRN Pain 08/16/23 08/16/23 History (Tylenol) oxycodone 5 mg tablet 5 - 10 mg (1 - 2 x 5 mg) PO 08/17/23 Rx .[id number] PRN pain, for initial therapy, max 6 tabs per day #12 tabs Patient History Surgical History History of laparoscopic appendectomy (08/17/23) Laparoscopic Appendectomy(Not Applicable) - Jayson Serna, Social History Smoking Status: Never smoker Second Hand Exposure: No; Do You Dip or Chew Tobacco: No; Hx Alcohol Use: Yes Alcohol type: other Hx Substance Use: No Preferred Language: Greek Communication Ability: Effective Inspector Floor Sub Assembly Required: No Beliefs That Will Affect Care: None Current Living Situation: Other Current Living Situation Comment: apartment with roommates Feels Safe at Home: Yes Assistive Devices: None Review of Systems Review of Systems: All systems reviewed & are unremarkable except as noted in Subjective Physical Exam Constitutional: WD/WN, vitals as above Eyes: EOM intact bilaterally Neck: normal appearance Respiratory: normal respiratory effort, lungs clear to auscultation Cardiovascular: Rate/Rhythm: regular rate and regular rhythm Heart Sounds: no gallop and no murmur Gastrointestinal (Abdomen): Inspection/Auscultation: + abdomen distended and + hypoactive bowel sounds Percussion/Palpation: abdomen soft; abdomen n ontender, no guarding and abdomen not rigid incisional dressings C/D/I Musculoskeletal: Extremities: no cyanosis no lower extremity edema Skin: no rashes, warm and dry Neurologic: moves all extremities Psychiatric: A+Ox3, euthymic affect Results & Data Vital Signs (Past 12 Hours) Vital Signs Temp Pulse Resp BP Pulse Ox O2 Del Method 08/18/23 08:01 36.8 C 75 18 108/73 100 Room Air 08/18/23 03:00 36.6 C 89 16 100/65 98 Room Air 08/17/23 23:07 36.8 C 88 18 108/71 100 Room Air Diagnostic Findings Laboratory Results WBC 7.09 K/ul (4.8-10.8) 08/18/23 08:26 RBC 4.02 M/uL (4.20-5.40) L 08/18/23 08:26 Hgb 9.8 g/dl (12.0-16.0) L 08/18/23 08:26 Hct 31.6 % (37.0-47.0) L 08/18/23 08:26 MCV 78.6 fL (80.0-100.0) L 08/18/23 08:26 MCH 24.4 pg (25.0-34.0) L 08/18/23 08:26 MCHC 31.0 g/dL (32.0-36.0) L 08/18/23 08:26 RDW Std Deviation 41.7 fL (36.4-46.3) 08/18/23 08: RDW Coeff of Joshua 14.6 % (11.5-14.5) H 08/18/23 08:26 Plt Count 296 K/uL (130-400) 08/18/23 08:26 MPV 9.1 fL (9.4-12.4) L 08/18/23 08:26 Immature Gran % (Auto) 0.4 % 08/18/23 08:26 Neut % (Auto) 57.5 % 08/18/23 08:26 Lymph % (Auto) 34.4 % 08/18/23 08:26 [place] % (Auto) 7.5 % 08/18/23 08:26 Eos % (Auto) 0.1 % 08/18/23 08:26 Baso % (Auto) 0.1 % 08/18/23 08:26 Neut # (Auto) 4.07 K/uL (1.40-6.50) 08/18/23 08:26 Lymph # (Auto) 2.44 K/uL (1.20-3.40) 08/18/23 08:26 [place] # (Auto) 0.53 K/uL (0.11-0.59) 08/18/23 08:26 Eos # (Auto) 0.01 K/uL (0.00-0.50) 08/18/23 08:26 Baso # (Auto) 0.01 K/uL (0.00-0.20) 08/18/23 08:26 Immature Gran # (Auto) 0.03 K/uL (0.01-0.20) 08/18/23 08:26 Sodium 140 mmol/L (136-145) 08/18/23 08:26 Potassium 3.4 mmol/L (3.5-5.1) L 08/18/23 08:26 Chloride 106 mmol/L (98-107) 08/18/23 08:26 Carbon Dioxide 26 mmol/L (21-32) 08/18/23 08:26 Anion Gap 8 (3-11) 08/18/23 08:26 BUN 6 mg/dl (6-23) 08/18/23 08:26 Creatinine 0.60 mg/dl (0.6-1.2) 08/18/23 08:26 Est Cr Clr Drug Dosing 113.8 ml/min 08/18/23 08:26 Est GFR ( Amer) > 150.0 ml/min 08/18/23 08:26 Est GFR (Non-Af Amer) 131.2 ml/min 08/18/23 08:26 BUN/Creatinine Ratio 10.0 (10-20) 08/18/23 08:26 Glucose 83 mg/dl (70-99(Fasting)) 08/18/23 08:26 Calcium 8.8 mg/dl (8.6-10.3) 08/18/23 08:26 Total Bilirubin 0.5 mg/dl (0.2-1.0) 08/16/23 21:46 AST 12 U/L (13-39) L 08/16/23 21:46 ALT 9 U/L (7-52) 08/16/23 21:46 Alkaline Phosphatase 71 U/L (34-104) 08/16/23 21:46 Total Protein 8.6 gm/dl (6.0-8.3) H 08/16/23 21:46 Albumin 4.5 gm/dl (3.4-5.0) 08/16/23 21:46 Globulin 4.1 gm/dl (2.5-4.0) H 08/16/23 21:46 Albumin/Globulin Ratio 1.1 (0.9-2) 08/16/23 21:46 Lipase 27 U/L (11-82) 08/16/23 21:46 HCG, Qual Negative (Negative) 08/16/23 21:46 Urine Color Yellow 08/17/23 02:05 Urine Appearance Clear (Clear) 08/17/23 02:05 Urine pH 8.5 (4.5-7.5) H 08/17/23 02:05 Ur Specific [place] 1.014 (1.000-1.030) 08/17/23 02:05 Urine Protein Negative (Negative) 08/17/23 02:05 Urine Glucose (UA) Negative (Negative) 08/17/23 02:05 Urine Ketones 2+ (Negative) H 08/17/23 02:05 Urine Blood Negative (Negative) 08/17/23 02:05 Urine Nitrite Negative (Negative) 08/17/23 02:05 Urine Bilirubin Negative (Negative) 08/17/23 02:05 Urine Urobilinogen Negative (Negative) 08/17/23 02:05 Ur Leukocyte Esterase Negative (Negative) 08/17/23 02:05 Impressions Abdomen/Pelvis CT 08/16/23 22:07 CR Exam(s): CT ABDOMEN + PELVIS Without Contrast EXAM: CT Abdomen and Pelvis Without Intravenous Contrast CLINICAL HISTORY: Reason for exam: upper abdominal pain, n/v. TECHNIQUE: Axial computed tomography images of the abdomen and pelvis without intravenous contrast. CTDI is 7.65 mGy and DLP is 326.39 mGy-cm. Automated exposure control was utilized for the study. A dose lowering technique was utilized adhering to the principles of ALARA. COMPARISON: No relevant prior studies available. FINDINGS: Lung bases: Unremarkable. No mass. No consolidation. ABDOMEN: Liver: Unremarkable. Gallbladder and bile ducts: Unremarkable. No calcified stones. No ductal dilation. Pancreas: Unremarkable. No ductal dilation. Spleen: Unremarkable. No splenomegaly. Adrenals: Unremarkable. No mass. Kidneys and ureters: Unremarkable. No obstructing stones. No hydronephrosis. Stomach and bowel: Circumferential wall thickening of the terminal ileum, concerning for enteritis. This has contributed to low-grade partial small bowel obstruction. PELVIS: Appendix: Mildly prominent appendix measuring up to 6 mm, with surrounding inflammation, concerning for appendicitis. Bladder: Unremarkable. No stones. Reproductive: Unremarkable as visualized. ABDOMEN and PELVIS: Intraperitoneal space: Unremarkable. No free air. No significant fluid collection. Bones/joints: No acute fracture. No dislocation. Soft tissues: Unremarkable. Vasculature: Unremarkable. No abdominal aortic aneurysm. Lymph nodes: Unremarkable. No enlarged lymph nodes. IMPRESSION: 1. Mildly prominent appendix measuring up to 6 mm, with surrounding inflammation, concerning for appendicitis. 2. Circumferential wall thickening of the terminal ileum, concerning for enteritis. This has contributed to low-grade partial small bowel obstruction. Communications: Verify Receipt Electronically signed by: Jose Hdz MD 08/16/23 23:36 PM PG Care Time/CCT Total # of Minutes Spent Total Time Spent with Patient: Total time spent is greater than 50% in coordination of care (as documented) at patient's floor/unit and/or counseling patient: Coding Level of Care Code 99608 INT INP/OBS CARE MIN Diagnoses Abnormal computed tomography of cecum and terminal ileum R93.3 Acute appendicitis K35.80 Abdominal pain R10.9
--- NOTE | 2023-08-18 10:48 | Surgery Progress Note ---
Date of Service August 18, 2023 Assessment & Plan (1) Acute appendicitis: Plan: She is doing well POD#1 Advance to regular diet and if she tolerates she can be discharged home Appreciate GI input, OP follow up to look into IBD based on intra op findings (2) Abnormal computed tomography of cecum and terminal ileum: Admission and Anticipated Discharge Date Admission Date: August 17, 2023 Subjective Pt seen and examined. Tolerating clears. Pain controlled. Afebrile. Ambulating without issue. Physical Exam Constitutional: WD/WN, vitals as above Gastrointestinal (Abdomen): Dressings c/d/i Results & Data Vital Signs (Past 12 Hours) Vital Signs Temp Pulse Resp BP Pulse Ox O2 Del Method 08/18/23 08:01 36.8 C 75 18 108/73 100 Room Air 08/18/23 03:00 36.6 C 89 16 100/65 98 Room Air 08/17/23 23:07 36.8 C 88 18 108/71 100 Room Air PG Care Time/CCT Total # of Minutes Spent Total Time Spent with Patient: Total time spent is greater than 50% in coordination of care (as documented) at patient's floor/unit and/or counseling patient: Coding Level of Care Code 62884 Post Operative Follow-Up Diagnoses Acute appendicitis with localized peritonitis, without perforation, abscess, or gangrene K35.30 Acute appendicitis type: with localized peritonitis Appendicitis gangrene presence: without gangrene Appendicitis perforation presence: without perforation Appendicitis abscess presence: without abscess Abnormal computed tomography of cecum and terminal ileum R93.3 (1) Acute appendicitis Acute appendicitis type: with localized peritonitis Appendicitis gangrene presence: without gangrene Appendicitis perforation presence: without perforation Appendicitis abscess presence: without abscess Qualified Code(s): K35.30 - Acute appendicitis with localized peritonitis, without perforation or gangrene
--- NOTE | 2023-08-22 08:50 | Discharge Summary ---
Date of Service August 18, 2023 Admission HPI Per Admitting Provider This is a 22-year-old female who presented the emergency department secondary to abdominal pain that began around 4:30 PM on 08/16/2023. The patient notes that the abdominal pain is primarily in the periumbilical region and she describes it as a sharp/piercing pain that comes and goes. She has had associated nausea and vomiting. She does note she took her temperature and she was not febrile. She does not report any palliative or provocative factors other than that the pain was relieved with morphine administered in the emergency department. She has never had any prior surgeries before. She did add that approximately 2 to 3 weeks ago she had similar pain but not as severe and this self resolved after sleeping for several hours Since arrival to the emergency department the patient has had labs and imaging which I independently reviewed. CT scan of the abdomen and pelvis showed the appendix was mildly prominent measuring approximately 6 mm with some surrounding inflammation. This raises concern for an appendicitis. The patient was also noted to have a circumferential wall thickening of the terminal ileum concerning for an enteritis which was also causing a partial small bowel obstruction. CBC reveal ed WBC was elevated at 17.2, hemoglobin and hematocrit were normal. Platelet count was 420K. Chemistry profile showed sodium and potassium were normal. BUN and Creatinine were non-elevated. A test was (-). At the time of my interview she was resting comfortably in bed and she was no distress. Concerning past medical history she denies any medical problems Concerning past surgical history she denies any surgeries Concerning allergies and medications she has no allergies and does not take any medicines Concerning social history she does not smoke Concerning family history there is no family history of inflammatory bowel disease Principal Diagnosis acute appendicitis Discharge Exam awake/alert, no distress Respiratory normal respiratory effort Gastrointestinal (Abdomen) Inspection/Auscultation: + abdominal surgical incision (dressings c/d/i intact) Percussion/Palpation: + abdomen tender (expected rogerio incisional discomfort ) and abdomen soft Discharge Data Allergies Allergy/AdvReac Type Severity Reaction Status Date / Time No Known Allergies Allergy Verified 08/17/23 09:48 Consultations 08/16/23 23:57 Consult General Surgery Stat 08/17/23 13:24 Consult Gastroenterology Routine Procedures Performed Operation Date: 08/17/23 11:25 Actual Procedures p Laparoscopic Appendectomy(Not Applicable) - Jayson SernaDO Ordered Studies 08/16/23 22:07 CT abd pelvis wo con Stat Hospital Course (1) Acute appendicitis: This is a 22yF who presented to the [facility] ED on 08/16/23 with abdominal pain. Workup in the ED showed a WBC of [address] a/p concerning for acute appendicitis. The patient was tender to palpation in the RLQ. Patient made NPO with IVF and booked for the OR. On the patient went to the OR with Dr. Serna for a laparoscopic appendectomy. Intraop patient had findings concerning for inflammation of the TI/cecum region that had a suspicious appearance for IBD. The patient tolerated the procedure well, see operative report for full details. Post operatively the patient's diet was advanced, pain managed on prn meds. Dressings required changing due to some drainage and remained c/d/i thereafter. GI was consulted due to intraop op findings and saw patient and recommended patient follow up as an outpatient for review of patient's pathology and consideration of a colonoscopy. On POD#1 the patient was deemed stable for discharge to home. WBC 7. She was instructed to follow up in the office within 2 weeks. Total Time Total Time Spent Total Time Spent (In Minutes): 10 Discharge Plan Discharge Items Patient Disposition: Home - Self-Care Reason For Visit: ABDOMINAL PAIN Discharge Diagnosis: laparoscopic appendectomy Activity: Per Instructions section Lifting: No more than 10 pounds Bathing Comment: may shower; no soaking in tubs/pools x 2 weeks Exercise/Sports: Wait until after follow-up appointment Driving/Machine Use: no driving while on narcotics for pain Non-emergency contact: Surgeon Call non-emergency contact if: you have any medication questions, your symptoms worsen, you have a fever, your temperature is above 101.5, your wound has increased redness, your wound has increased drainage and your wound pain has increased Follow-up/Referrals: Salvador Mortensen MD [Physician] - (Please call the GI office to schedule follow up in their office within 2 weeks time to discuss the possibility of an outpatient colonoscopy) Jayson Serna DO [Physician] - 09/01/23 9:10 am (please call to schedule follow up in clinic within 2 weeks ) [facility] [Primary Care Provider] - Diet: Regular Addtl Attending Provider Instructions: You may remove your outer surgical dressings on 08/18. You will have small white bandages on underneath that are over your incisions. You may shower with these on. They will tend to fall off on their own within 7-10 days. You may purchase Tylenol and/or Ibuprofen over the counter if needed for additional pain control over the next few days. Take per manufacturers instructions Pending Studies at Discharge: Yes Studies:: surgical pathology Stand-Alone Forms: My [facility], Pain - Opioid Pain Management, Smoking Cessation Medications and DC Order Prescriptions: New oxycodone 5 mg tablet 5 - 10 mg PO .[id number] PRN (Reason: pain, for initial therapy, max 6 tabs per day) Qty: 12 0RF Continued acetaminophen [Tylenol] 325 mg Tablet 650 mg PO QID PRN (Reason: Pain) Discharge Orders: Discharge Order (Routine); Ordered 08/18/23 Ordered By: Josefina Hayes/Other Patient Handouts: DVT Post Op Prevention Admission Data Admit Date/Time: 08/17/23 01:11 Attending Provider: Jayson Serna Admit Provider: Jayson Serna Primary Care Provider: [facility] Other Providers: Jayson Serna; Preeti Millard; Leno Bennett; Ivon Price; Yesica Knox; Liane Gamez; Melissa Gonzalez; Salvador Mortensen; Sg Yeboah; Buck Alberts; Margot Gandara; Isiah Newell; Aminta Deleon; Bina Shepard; Jillian Ashley; Nely Pereira; Lizz Meek; Audie Tee; Dennis Lopez; Winnie Boudreaux; Rodriguez Rausch Jr Other Interventions: Discharge Summary Assessment (RN) Last Done: 08/18/23 12:44 Coding Level of Care Code 29642 IN/OBS DISCH 30 MIN/LESS Diagnoses Acute appendicitis with localized peritonitis, without perforation, abscess, or gangrene K35.30 Acute appendicitis type: with localized peritonitis Appendicitis abscess presence: without abscess Appendicitis gangrene presence: without gangrene Appendicitis perforation presence: without perforation
== END 2023-08-18 15:52 | disposition home or self-care (01) | DRG 398 ==
LOC: ED 21:20 → EDINP 08-17 01:11 → 3N 08-17 01:56

== ENCOUNTER 2024-02-27 23:53 | Inpatient (IN) ==
--- NOTE | 2024-02-28 00:58 | Emergency Department Note ---
Impression & Plan Small bowel obstruction, Crohn's disease of both small and large intestine ED Provider Note CHIEF COMPLAINT: Crohn's disease flare HISTORY OF PRESENTING ILLNESS: This 23-year-old female patient presents to the emergency department for evaluation of left lower quadrant abdominal pain. Symptoms started yesterday morning after eating breakfast. Throughout the day the symptoms have gotten progressively worse. She believes this is coming from a Crohn's flare, but also has a history of SBO. She is having nausea, vomiting, and constipation. She is having trouble keeping anything down by mouth. The pain comes in waves of more sharp and severe pain and then more constant moderate pain. She rates her discomfort a 6/10. She denies chest pain or SOB. Denies urinary symptoms. Denies chance of . Usually having 2-3 BMs that are normal to harder. She has not had a BM since the pain started. She has a history of newly diagnosed Crohn's ileocolitis as well as a history of small bowel obstruction. She follows up with Татья[facility] AAR[facility]. She had a colonoscopy on 09/29/2023 that showed diffuse severe inflammation in the ascending colon secondary to colitis. Biopsy revealed chronic colitis with severe activity, but negative for dysplasia. Her last office visit with GI was on 10/04/2023. Additional laboratory studies and MRE were ordered at that time. She was to be started on biologic therapy. She was placed on a prednisone taper prior to authorization of the biologic therapy. The patient's fecal calprotectin level on 10/10/2023 was normal at 113. MRE on 11/06/2023 showed a focal region of thickened aperistaltic bowel in the proximal ascending colon compatible with findings of Crohn's disease. She has an appt with GI next week for follow up. She is not on a biologic yet, but is on Budesonide 9 mg and Prednisone 20 mg once a day until she can be started on a biologic. However, she ran out of the budesonide 1 week ago and is running low on the Prednisone because her GI appt was supposed to be last week, but had to be rescheduled. REVIEW OF SYSTEMS: See HPI for pertinent positives and pertinent negatives. ALLERGIES: NKDA MEDICATIONS: Budesonide, Prednisone PAST MEDICAL HISTORY: Crohn's Disease, history of SBO, appendectomy PHYSICAL EXAM: VITALS: Vitals are noted on the nurse's note and reviewed by myself. GENERAL: Non toxic, no acute distress, non-diaphoretic. SKIN: Capillary refill <2 sec. EYES: PERRLA. EOMI. Conjunctivae without injection, sclerae without icterus. NOSE: Patent without discharge. MOUTH: Mucous membranes moist. Uvula midline. Airway patent. NECK: Supple without nuchal rigidity. HEART: Regular rate and rhythm without murmurs gallops or rubs. LUNGS: Clear to auscultation bilaterally without wheezes, rales or rhonchi. No retractions or accessory muscle use. ABDOMEN: Positive bowel sounds x 4. Normal tympanic percussion. Soft, diffusely tender to palpation with maximal tenderness to the left side of her abdomen. No masses or organomegaly. White sign negative. No guarding or rebound tenderness. No focal RLQ or LLQ tenderness. MUSCULOSKELETAL: No gross musculoskeletal defects. NEURO: Patient was alert and oriented. No focal neurological deficits. DIFFERENTIAL DIAGNOSIS: Differential diagnosis includes hepatitis, pancreatitis, cholecystitis, cholelithiasis, appendicitis, kidney stone, pyelonephritis, UTI, gastritis, gastroenteritis, mesenteric adenitis, obstruction, constipation, hernia, abdominal abscess, perforation, diverticulitis, IBD, ischemic colitis, abdominal aortic aneurysm, , ectopic , ovarian cyst, ovarian torsion, acute salpingitis, or others. ED COURSE AND MEDICAL DECISION MAKING: MEDICATIONS GIVEN: 1 L normal saline solution bolus. Tylenol 1000 mg IV. Zofran 4 mg IV. Morphine 4 mg IV x 2. Reglan 10 mg IV. Solu-Medrol 30 mg IV. INTERPRETATION OF LABS: I interpreted the labs with full lab results as below in the lab section of this note. Pertinent lab results discussed in the MDM section below. INTERPRETATION OF IMAGING: Imaging studies were interpreted by myself and read by radiology as per the imaging section of this note. CT scan of the abdomen pelvis with IV contrast showed a small bowel obstruction extending to the ileocecal junction with dilation of the distal ileal loops measuring up to 3.4 cm. There is fecalization of multiple distal ileal loops extending to the ileocecal junction which implies stasis. There is adjacent inflammatory change noted which may be reactive in nature, but concurrent inflammatory bowel disease is also possible. No evidence for pneumatosis, venous gas, or free air. Mild mesenteric ascites which may be reactive in nature. EXTERNAL RECORDS REVIEWED: I reviewed the patient's outpatient GI visit, colonoscopy, and additional outpatient testing as summarized above. CHRONIC MEDICAL/SOCIAL CONDITIONS AFFECTING CARE: Crohn's disease with a history of small bowel obstruction CONSULTATIONS: Dr. Martel of GI. On-call hospitalist. MDM SUMMARY: I examined the patient. The patient presents to the emergency department with severe abdominal pain worse on the left side. She has a history of newly diagnosed Crohn's disease and also has a history of small bowel obstruction. The patient has not been started on biologic treatment yet, but is on budesonide and prednisone. However, her budesonide ran out last week since her GI appointment needed to be pushed back. The patient is still on prednisone 20 mg QD. She states that the acute onset of severe pain started this morning. An IV lock was placed and labs were drawn. White blood cell count elevated 11.03. Hemoglobin normal at 12.3. Platelet count normal at 321. CMP was normal. Lipase normal. Serum hCG negative. Urinalysis with trace ketones, but otherwise normal. The patient was unable to give a stool sample while in the emergency department. CT scan of the abdomen pelvis with IV contrast showed a small bowel obstruction extending to the ileocecal junction with dilation of the distal ileal loops measuring up to 3.4 cm. There is fecalization of multiple distal ileal loops extending to the ileocecal junction which implies stasis. There is adjacent inflammatory change noted which may be reactive in nature, but concurrent inflammatory bowel disease is also possible. No evidence for pneumatosis, venous gas, or free air. Mild mesenteric ascites which may be reactive in nature. I spoke with Dr. Martel of GI who recommended the patient be started on Solu- Medrol 30 mg IV. They will continue to consult on the patient. I spoke with the on-call hospitalist who agreed to admit the patient for further evaluation and treatment of the small bowel obstruction. The patient's symptoms improved with the above medications. She is no longer having nausea or vomiting. Therefore, NG tube was held at this time in the ER. Please refer to Dr. Martel and Dr. Barker's notes for further details. The patient's care was transferred in stable condition. DIAGNOSIS: Small bowel obstruction Crohn's disease Past Med/Surg History Problem List (Updated 02/28/24 @ 07:40 by Fanny A. Sanchez, PA-C) Small bowel obstruction (Acute) Crohn's disease of both small and large intestine (Acute) Encounter for pre-operative examination Abnormal computed tomography of cecum and terminal ileum Acute appendicitis (Acute) Abdominal pain Medical History No known health problems Surgical History History of laparoscopic appendectomy (08/17/23) Family History Other No family history of adverse response to anesthesia Social History Smoking Status: Never smoker Second Hand Exposure: No; Do You Dip or Chew Tobacco: No; Hx Alcohol Use: Yes Alcohol type: other Hx Substance Use: No Preferred Language: Arabic Communication Ability: Effective Telephone Services Sales Representative Required: No Beliefs That Will Affect Care: None Current Living Situation: Other Current Living Situation Comment: apartment with roommates Feels Safe at Home: Yes Assistive Devices: Glasses Allergies Allergies Allergy/AdvReac Type Severity Reaction Status Date / Time No Known Allergies Allergy Verified 10/04/23 11:40 Home Meds Home Medications Medication Instructions Recorded Confirmed acetaminophen 325 mg tablet 650 mg PO QID PRN Pain 08/16/23 10/04/23 (Tylenol) Previous Rx's Medication Instructions Recorded prednisone 10 mg tablet See Rx Instructions PO DAILY #126 10/04/23 tabs Results & Data (ED) Vital Signs Vital Signs - 24 hr 02/28/24 00:09 02/28/24 01:20 02/28/24 02:07 Temperature 36.4 C L Temperature Source Temporal Artery Scan Pulse Rate 97 H Pulse Rate [Right Finger] 111 H 109 H Pulse Rhythm Regular Respiratory Rate 18 18 19 Respiratory Effort / Characteristics Non-Labored Spontaneous Non-Labored Spontaneous Respiratory Depth Normal Normal Respiratory Pattern Regular Regular Blood Pressure 115/73 Blood Pressure [Left Arm] 124/96 124/83 Blood Pressure Mean 87 Blood Pressure Mean [Left Arm] 105 96 Pulse Oximetry 100 100 99 Oxygen Delivery Method Room Air Room Air Room Air Sepsis Recent Fever Within 48 Hours No Sepsis New/Unexplained Change in Mental Status No Sepsis Action Taken by Nursing No Action Required 02/28/24 03:01 02/28/24 04:34 02/28/24 05:54 Temperature Temperature Source Pulse Rate Pulse Rate [Right Finger] 109 H 88 115 H Pulse Rhythm Respiratory Rate 18 16 20 Respiratory Effort / Characteristics Respiratory Depth Respiratory Pattern Blood Pressure Blood Pressure [Left Arm] 120/86 Blood Pressure Mean Blood Pressure Mean [Left Arm] 97 Pulse Oximetry 97 97 100 Oxygen Delivery Method Room Air Room Air Room Air Sepsis Recent Fever Within 48 Hours Sepsis New/Unexplained Change in Mental Status Sepsis Action Taken by Nursing 02/28/24 06:23 Temperature Temperature Source Pulse Rate Pulse Rate [Right Finger] 106 H Pulse Rhythm Respiratory Rate 16 Respiratory Effort / Characteristics Respiratory Depth Respiratory Pattern Blood Pressure Blood Pressure [Left Arm] 125/84 Blood Pressure Mean Blood Pressure Mean [Left Arm] 97 Pulse Oximetry 100 Oxygen Delivery Method Room Air Sepsis Recent Fever Within 48 Hours Sepsis New/Unexplained Change in Mental Status Sepsis Action Taken by Nursing Laboratory Data 02/28/24 00:40 02/28/24 00:40 Lab Results 02/28/24 Range/Units 00:40 WBC 11.03 H (4.8-10.8) K/ul RBC 4.89 (4.20-5.40) M/uL Hgb 12.3 (12.0-16.0) g/dl Hct 38.6 (37.0-47.0) % MCV 78.9 L (80.0-100.0) fL MCH 25.2 (25.0-34.0) pg MCHC 31.9 L (32.0-36.0) g/dL RDW Std Deviation 42.1 (36.4-46.3) fL RDW Coeff of Joshua 14.6 H (11.5-14.5) % Plt Count 321 (130-400) K/uL MPV 9.4 (9.4-12.4) fL Immature Gran % (Auto) 0.3 % Neut % (Auto) 75.9 % Lymph % (Auto) 16.3 % Mcmullen % (Auto) 6.5 % Eos % (Auto) 0.8 % Baso % (Auto) 0.2 % Neut # (Auto) 8.37 H (1.40-6.50) K/uL Lymph # (Auto) 1.80 (1.20-3.40) K/uL Mcmullen # (Auto) 0.72 H (0.11-0.59) K/uL Eos # (Auto) 0.09 (0.00-0.50) K/uL Baso # (Auto) 0.02 (0.00-0.20) K/uL Immature Gran # (Auto) 0.03 (0.01-0.20) K/uL Sodium 140 (136-145) mmol/L Potassium 3.8 (3.5-5.1) mmol/L Chloride 104 (98-107) mmol/L Carbon Dioxide 29 (21-32) mmol/L Anion Gap 7 (3-11) BUN 8 (6-23) mg/dl Creatinine 0.70 (0.6-1.2) mg/dl Est Cr Clr Drug Dosing 95.1 ml/min Est GFR ( Amer) 143.5 ml/min Est GFR (Non-Af Amer) 123.9 ml/min BUN/Creatinine Ratio 11.4 (10-20) Glucose 98 (70-99(Fasting)) mg/dl Calcium 9.8 (8.6-10.3) mg/dl Total Bilirubin 0.4 (0.2-1.0) mg/dl AST 13 (13-39) U/L ALT 12 (7-52) U/L Alkaline Phosphatase 47 (34-104) U/L Total Protein 7.8 (6.0-8.3) gm/dl Albumin 4.8 (3.4-5.0) gm/dl Globulin 3.0 (2.5-4.0) gm/dl Albumin/Globulin Ratio 1.6 (0.9-2) Lipase 48 (11-82) U/L HCG, Qual Negative (Negative) Urine Color Yellow Urine Appearance Clear (Clear) Urine pH 6.0 (4.5-7.5) Ur Specific [place] 1.005 (1.000-1.030) Urine Protein Negative (Negative) Urine Glucose (UA) Negative (Negative) Urine Ketones Trace H (Negative) Urine Blood Negative (Negative) Urine Nitrite Negative (Negative) Urine Bilirubin Negative (Negative) Urine Urobilinogen Negative (Negative) Ur Leukocyte Esterase Negative (Negative) Administered Medications Discontinued Medications Sodium Chloride (Nss) 1,000 mls @ 999 mls/hr IV .Q1H1M ONE Stop: 02/28/24 02:05 Last Infusion: 02/28/24 02:12 Dose: Infused Documented By: Admin: 02/28/24 01:13 Dose: 999 mls/hr Documented By: AZUL Acetaminophen (Ofirmev) 1,000 mg in 100 mls @ 400 mls/hr IV NOW STA Stop: 02/28/24 01:19 Last Admin: 02/28/24 01:20 Dose: Not Given Documented By: AZUL Piperacillin Sod/Tazobactam Sod (Zosyn) 4.5 gm in 100 mls @ 200 mls/hr IV NOW ONE Stop: 02/28/24 06:27 Last Infusion: 02/28/24 06:46 Dose: Infused Documented By: Admin: 02/28/24 06:19 Dose: 200 mls/hr Documented By: CARMEN Ioversol (Optiray 320 100ml) 100 ml IV ONCE ONE Stop: 02/28/24 01:54 Last Admin: 02/28/24 01:54 Dose: 93 ml Documented By: XUAN Methylprednisolone (Methylprednisolone 125 Mg/2 Ml Vial) 30 mg IV NOW STA Stop: 02/28/24 05:25 Last Admin: 02/28/24 05:42 Dose: 30 mg Documented By: CARMEN Metoclopramide HCl (Metoclopramide Hcl Inj 5 Mg/Ml 2 Ml Vial) 10 mg IV NOW STA Stop: 02/28/24 04:24 Last Admin: 02/28/24 04:26 Dose: 10 mg Documented By: CARMEN Morphine Sulfate (Morphine Sulfate 4 Mg/Ml 1 Ml Carp\Vial) 4 mg IV NOW STA Stop: 02/28/24 01:15 Last Admin: 02/28/24 01:16 Dose: 4 mg Documented By: AZUL Morphine Sulfate (Morphine Sulfate 4 Mg/Ml 1 Ml Carp\Vial) 4 mg IV NOW STA Stop: 02/28/24 02:39 Last Admin: 02/28/24 02:40 Dose: 4 mg Documented By: AZUL Ondansetron HCl (Ondansetron Inj 2 Mg/Ml 2 Ml Vial) 4 mg IV NOW STA Stop: 02/28/24 01:06 Last Admin: 02/28/24 01:13 Dose: 4 mg Documented By: AZUL Imaging Data Radiologist's Impression: Abdomen/Pelvis CT 02/28/24 01:05 CR Exam(s): CT ABDOMEN + PELVIS With Contrast IV Amt: 93 ML OPTIRAY 320 EXAM: CT Abdomen and Pelvis With Intravenous Contrast CLINICAL HISTORY: Reason for exam: Abdominal pain - h/o Crohn's and SBO. TECHNIQUE: Axial computed tomography images of the abdomen and pelvis with intravenous contrast. CTDI is 6.66 mGy and DLP is 274.92 mGy-cm. Automated exposure control was utilized for the study. A dose lowering technique was utilized adhering to the principles of ALARA. CONTRAST: Patient received 93 ML OPTIRAY 320 of IV contrast COMPARISON: CT Abdomen Pelvis dated august 16 2023 FINDINGS: Lung bases: Unremarkable. No mass. No consolidation. ABDOMEN: Liver: Unremarkable. No mass. Gallbladder and bile ducts: Unremarkable. No calcified stones. No ductal dilation. Pancreas: Unremarkable. No mass. No ductal dilation. Spleen: Unremarkable. No splenomegaly. Adrenals: Unremarkable. No mass. Kidneys and ureters: Unremarkable. No solid mass. No hydronephrosis. Stomach and bowel: Small bowel obstruction extending to the ileocecal junction dilatation of distal ileal loops measuring up to 3.4 cm. Fecalization of multiple distal ileal loops extending to the ileocecal junction implies stasis. Adjacent inflammatory change noted which may be reactive in nature. Concurrent inflammatory bowel disease is also possible. Consider MR enterography if there is further concern. No mucosal thickening. PELVIS: Appendix: No findings to suggest acute appendicitis. Bladder: Unremarkable. No mass. Reproductive: Unremarkable as visualized. ABDOMEN and PELVIS: Intraperitoneal space: No evidence of pneumatosis, portal venous gas, or free air. Mild mesenteric ascites which may be reactive in nature. Bones/joints: No acute fracture. No dislocation. Soft tissues: Unremarkable. Vasculature: Unremarkable. No abdominal aortic aneurysm. Lymph nodes: Unremarkable. No enlarged lymph nodes. IMPRESSION: 1. Small bowel obstruction extending to the ileocecal junction dilatation of distal ileal loops measuring up to 3.4 cm. Fecalization of multiple distal ileal loops extending to the ileocecal junction implies stasis. Adjacent inflammatory change noted which may be reactive in nature. Concurrent inflammatory bowel disease is also possible. Consider MR enterography if there is further concern. 2. No evidence of pneumatosis, portal venous gas, or free air. 3. Mild mesenteric ascites which may be reactive in nature. 4. No other acute findings. Communications: Verify Receipt Electronically signed by: Homer Jerome MD 02/28/24 04:53 AM Discharge Plan Visit Data Chief Complaint: Illness Stated Complaint: CROHNS DISEASE,BODY PAIN, CHILLS ED Provider: Rani Costa ED Midlevel Provider: Fanny Sanchez Discharge Problem: Small bowel obstruction, Crohn's disease of both small and large intestine Patient Disposition: Admitted As Inpatient Condition: Good Forms Stand Alone Forms: [facility] Prescriptions Prescriptions: No Action prednisone 10 mg tablet See Rx Instructions PO DAILY Qty: 126 0RF Rx Instructions: Start at 40 mg daily for one week, then decrease by 5 mg weekly until complete. PO DAILY; acetaminophen [Tylenol] 325 mg Tablet 650 mg PO QID PRN (Reason: Pain) Referrals Referrals: [facility] [Primary Care Provider] -
[2024-02-28 01:08] LABS: Appearance Urine Clear (Clear); Bilirubin Urine Negative (Negative); Blood Urine Negative (Negative); Color Urine Yellow; Glucose Urine UA Negative (Negative); Ketones Urine Trace (Negative); Leukocyte Esterase Urine Negative (Negative); Nitrite Urine Negative (Negative); Protein Urine Negative (Negative); Specific Gravity Urine 1.005 (1.000-1.030); Urobilinogen Urine Negative (Negative)
[2024-02-28 01:12] LABS: Basophils # (auto) 0.02 K/uL (0.00-0.20); Basophils % (auto) 0.2 %; Eosinophils # (auto) 0.09 K/uL (0.00-0.50); Eosinophils % (auto) 0.8 %; Hematocrit (blood only) 38.6 % (37.0-47.0); Hemoglobin 12.3 g/dl (12.0-16.0); Immature Granulocytes # (auto) 0.03 K/uL (0.01-0.20); Immature Granulocytes % (auto) 0.3 %; Lymphocytes % (auto) 16.3 %; Mean Corpuscular Hemoglobin 25.2 pg (25.0-34.0); Mean Corpuscular Hgb Conc 31.9 g/dL (32.0-36.0); Mean Corpuscular Volume 78.9 fL (80.0-100.0); Mean Platelet Volume 9.4 fL (9.4-12.4); Monocytes # (auto) 0.72 K/uL (0.11-0.59); Monocytes % (auto) 6.5 %; Neutrophils # (auto) 8.37 K/uL (1.40-6.50); Neutrophils % (auto) 75.9 %; Platelet Count 321 K/uL (130-400); RDW Coefficient of Variation 14.6 % (11.5-14.5); RDW Standard Deviation 42.1 fL (36.4-46.3); Red Blood Count 4.89 M/uL (4.20-5.40); White Blood Count 11.03 K/ul (4.8-10.8)
[2024-02-28] MEDS: SODIUM CHLORIDE 0.9% 1,000 ML IV ONE (01:13)
[2024-02-28] MEDS: ONDANSETRON INJ 2 MG/ML 2 ML VIAL IV STA (01:13)
[2024-02-28] MEDS: MoRPHine SULFATE 4 MG/ML 1 ML CARP\\VIAL IV STA ×2 (01:16→02:40)
[2024-02-28] MEDS: ACETAMINOPHEN 1,000 MG/100 ML VIAL IV STA (01:20)
[2024-02-28 01:27] LABS: Albumin Globulin Ratio 1.6 (0.9-2); Albumin Level 4.8 gm/dl (3.4-5.0); BUN Creatinine Ratio 11.4 (10-20); Bilirubin,Total 0.4 mg/dl (0.2-1.0); Calcium 9.8 mg/dl (8.6-10.3); Creatinine Clr Calc Pharmacy 95.1 ml/min; Est GFR (African American) 143.5 ml/min; Est GFR (Non-African American) 123.9 ml/min; Potassium 3.8 mmol/L (3.5-5.1); Pregnancy Test, Serum Negative (Negative); Total Protein 7.8 gm/dl (6.0-8.3)
[2024-02-28] MEDS: OPTIRAY 320 100ml IV ONE (01:54)
[2024-02-28] MEDS: METOCLOPRAMIDE HCL INJ 5 MG/ML 2 ML VIAL IV STA (04:26)
--- NOTE | 2024-02-28 04:54 | CT Scan Report ---
Exam(s): CT ABDOMEN + PELVIS With Contrast IV Amt: 93 ML OPTIRAY 320 EXAM: CT Abdomen and Pelvis With Intravenous Contrast CLINICAL HISTORY: Reason for exam: Abdominal pain - h/o Crohn's and SBO. TECHNIQUE: Axial computed tomography images of the abdomen and pelvis with intravenous contrast. CTDI is 6.66 mGy and DLP is 274.92 mGy-cm. Automated exposure control was utilized for the study. A dose lowering technique was utilized adhering to the principles of ALARA. CONTRAST: Patient received 93 ML OPTIRAY 320 of IV contrast COMPARISON: CT Abdomen Pelvis dated august 16 2023 FINDINGS: Lung bases: Unremarkable. No mass. No consolidation. ABDOMEN: Liver: Unremarkable. No mass. Gallbladder and bile ducts: Unremarkable. No calcified stones. No ductal dilation. Pancreas: Unremarkable. No mass. No ductal dilation. Spleen: Unremarkable. No splenomegaly. Adrenals: Unremarkable. No mass. Kidneys and ureters: Unremarkable. No solid mass. No hydronephrosis. Stomach and bowel: Small bowel obstruction extending to the ileocecal junction dilatation of distal ileal loops measuring up to 3.4 cm. Fecalization of multiple distal ileal loops extending to the ileocecal junction implies stasis. Adjacent inflammatory change noted which may be reactive in nature. Concurrent inflammatory bowel disease is also possible. Consider MR enterography if there is further concern. No mucosal thickening. PELVIS: Appendix: No findings to suggest acute appendicitis. Bladder: Unremarkable. No mass. Reproductive: Unremarkable as visualized. ABDOMEN and PELVIS: Intraperitoneal space: No evidence of pneumatosis, portal venous gas, or free air. Mild mesenteric ascites which may be reactive in nature. Bones/joints: No acute fracture. No dislocation. Soft tissues: Unremarkable. Vasculature: Unremarkable. No abdominal aortic aneurysm. Lymph nodes: Unremarkable. No enlarged lymph nodes. IMPRESSION: 1. Small bowel obstruction extending to the ileocecal junction dilatation of distal ileal loops measuring up to 3.4 cm. Fecalization of multiple distal ileal loops extending to the ileocecal junction implies stasis. Adjacent inflammatory change noted which may be reactive in nature. Concurrent inflammatory bowel disease is also possible. Consider MR enterography if there is further concern. 2. No evidence of pneumatosis, portal venous gas, or free air. 3. Mild mesenteric ascites which may be reactive in nature. 4. No other acute findings. Communications: Verify Receipt Electronically signed by: Homer Jerome MD 02/28/24 04:53 AM
[2024-02-28] MEDS: methylPREDNISolone 125 MG/2 ML VIAL IV STA (05:42)
--- NOTE | 2024-02-28 06:04 | History & Physical Report ---
Date of Service February 28, 2024 Assessment & Plan (1) Small bowel obstruction: (2) Crohn's disease of both small and large intestine: Plan Small bowel obstruction/Crohn's exacerbation- N.p.o. except a few ice chips Hold prednisone Methylprednisolone 30 mg IV now, and every 8 hours Zofran 4 mg IV every 6 hours as needed Zosyn 4.5 g IV every 8 hours Pantoprazole 40 mg IV daily NSS + KCl 20 mill equivalents at 100 mL/h Acetaminophen 1 g IV every 8 hours as needed for mild pain or fever Morphine sulfate 2 mg IV every 4 hours as needed for moderate to severe pain Consult gastroenterology History of Present Illness Chief Complaint: The patient presents to the emergency department with worsening abdominal pain, with nausea and without vomiting, over the past 24 hours Primary Care Provider: [facility] The patient is a 23-year-old female who was diagnosed with Crohn's disease of both small and large intestine in September of this year. She had undergone a prednisone taper from September through November, and then ultimately was to be started on Biologics. However, the patient had to go to [place] for the summertime, and was to go to [facility] for a while as well. She reports that while in [place] in December, she did not end up in the hospital there, and was again placed on a prednisone taper along with budesonide. The patient reports that she had run out of budesonide last week, when her appointment with [facility] gastroenterology was temporarily moved due to moving into a new building. She developed acute abdominal pain, with nausea, without vomiting, over the past 24 hours and presented to the ED for assessment. In the [facility] ED, CT scan of the abdomen pelvis revealed a small bowel obstruction to the ileocecal junction, with fecalization suggestive of stasis, with adjacent inflammation, consistent with inflammatory bowel disease. She was then referred for evaluation for admission. Allergies Allergy/AdvReac Type Severity Reaction Status Date / Time No Known Allergies Allergy Verified 10/04/23 11:40 Home Medications Medication Instructions Recorded Confirmed Type acetaminophen 325 mg tablet 650 mg PO QID PRN Pain 08/16/23 10/04/23 History (Tylenol) prednisone 10 mg tablet See Rx Instructions PO DAILY #126 10/04/23 10/04/23 Rx tabs Past Med/Surg History Problem List (Updated 02/28/24 @ 06:17 by Brien Barker MD) Small bowel obstruction Crohn's disease of both small and large intestine Encounter for pre-operative examination Abnormal computed tomography of cecum and terminal ileum Acute appendicitis (Acute) Abdominal pain Medical History No known health problems Surgical History History of laparoscopic appendectomy (08/17/23) Family History Other No family history of adverse response to anesthesia Social History Smoking Status: Never smoker Second Hand Exposure: No; Do You Dip or Chew Tobacco: No; Hx Alcohol Use: Yes Alcohol type: other Hx Substance Use: No Preferred Language: Albanian Communication Ability: Effective Medical Records Director Required: No Beliefs That Will Affect Care: None Current Living Situation: Other Current Living Situation Comment: apartment with roommates Feels Safe at Home: Yes Assistive Devices: Glasses Review of Systems Review of Systems: The patient denies chest pain, palpitations, shortness of breath, dyspnea on exertion, cough, lower extremity swelling, sore throat, fevers, chills, sweats, vomiting, blood in urine or stool, dysuria, urinary frequency or urgency, lightheadedness, dizziness, headache, memory loss, loss of consciousness, rash, abnormal bruising or bleeding, imbalance, focal or generalized weakness, numbness or tingling in arms or legs, generalized arthralgias or myalgias, back or neck pain, or night sweats. The review of systems is otherwise negative other than for that already noted above, and at least 10 systems have been reviewed. Physical Exam Physical Exam: The patient is awake, alert and oriented 3, well developed and well nourished, normocephalic and atraumatic, lying in bed and in no acute distress. HEENT--PERRL, EOMI, mucous membranes and oropharynx mildly dry. Neck--supple. No JVD. No bruits. Thyroid normal, trachea midline, no adenopathy. Heart--normal S1 and S2. No murmurs, rubs or gallops. Lungs--clear bilaterally, no respiratory distress, no accessory muscle use. Abdomen--intermittent bowel sounds bowel sounds and soft. Nontender. Nondistended, no hernias or masses, no organomegaly. Extremities--no cyanosis or clubbing. No edema. Dermatologic--normal skin turgor, normal color, no abnormal lymph nodes, no rash. Neurologic--cranial nerves II through XII grossly intact. Rheumatologic--normal range of motion. Psychiatric--normal affect. Results & Data Results & Data Vital Signs (Past 12 Hours) Vital Signs Temp Pulse Pulse Resp BP BP Pulse Ox 02/28/24 05:54 115 H 20 100 02/28/24 04:34 88 16 97 02/28/24 03:01 109 H 18 120/86 97 02/28/24 02:07 109 H 19 124/83 99 02/28/24 01:20 111 H 18 124/96 100 02/28/24 00:09 36.4 C L 97 H 18 115/73 100 O2 Del Method 02/28/24 05:54 Room Air 02/28/24 04:34 Room Air 02/28/24 03:01 Room Air 02/28/24 02:07 Room Air 02/28/24 01:20 Room Air 02/28/24 00:09 Room Air Laboratory Results Laboratory Results WBC 11.03 K/ul (4.8-10.8) H 02/28/24 00:40 RBC 4.89 M/uL (4.20-5.40) 02/28/24 00:40 Hgb 12.3 g/dl (12.0-16.0) 02/28/24 00:40 Hct 38.6 % (37.0-47.0) 02/28/24 00:40 MCV 78.9 fL (80.0-100.0) L 02/28/24 00:40 MCH 25.2 pg (25.0-34.0) 02/28/24 00:40 MCHC 31.9 g/dL (32.0-36.0) L 02/28/24 00:40 RDW Std Deviation 42.1 fL (36.4-46.3) 02/28/24 00:40 RDW Coeff of Joshua 14.6 % (11.5-14.5) H 02/28/24 00:40 Plt Count 321 K/uL (130-400) 02/28/24 00:40 MPV 9.4 fL (9.4-12.4) 02/28/24 00:40 Immature Gran % (Auto) 0.3 % 02/28/24 00:40 Neut % (Auto) 75.9 % 02/28/24 00:40 Lymph % (Auto) 16.3 % 02/28/24 00:40 Falls % (Auto) 6.5 % 02/28/24 00:40 Eos % (Auto) 0.8 % 02/28/24 00:40 Baso % (Auto) 0.2 % 02/28/24 00:40 Neut # (Auto) 8.37 K/uL (1.40-6.50) H 02/28/24 00:40 Lymph # (Auto) 1.80 K/uL (1.20-3.40) 02/28/24 00:40 Falls # (Auto) 0.72 K/uL (0.11-0.59) H 02/28/24 00:40 Eos # (Auto) 0.09 K/uL (0.00-0.50) 02/28/24 00:40 Baso # (Auto) 0.02 K/uL (0.00-0.20) 02/28/24 00:40 Immature Gran # (Auto) 0.03 K/uL (0.01-0.20) 02/28/24 00:40 Sodium 140 mmol/L (136-145) 02/28/24 00:40 Potassium 3.8 mmol/L (3.5-5.1) 02/28/24 00:40 Chloride 104 mmol/L (98-107) 02/28/24 00:40 Carbon Dioxide 29 mmol/L (21-32) 02/28/24 00:40 Anion Gap 7 (3-11) 02/28/24 00:40 BUN 8 mg/dl (6-23) 02/28/24 00:40 Creatinine 0.70 mg/dl (0.6-1.2) 02/28/24 00:40 Est Cr Clr Drug Dosing 95.1 ml/min 02/28/24 00:40 Est GFR ( Amer) 143.5 ml/min 02/28/24 00:40 Est GFR (Non-Af Amer) 123.9 ml/min 02/28/24 00:40 BUN/Creatinine Ratio 11.4 (10-20) 02/28/24 00:40 Glucose 98 mg/dl (70-99(Fasting)) 02/28/24 00:40 Calcium 9.8 mg/dl (8.6-10.3) 02/28/24 00:40 Total Bilirubin 0.4 mg/dl (0.2-1.0) 02/28/24 00:40 AST 13 U/L (13-39) 02/28/24 00:40 ALT 12 U/L (7-52) 02/28/24 00:40 Alkaline Phosphatase 47 U/L (34-104) 02/28/24 00:40 Total Protein 7.8 gm/dl (6.0-8.3) 02/28/24 00:40 Albumin 4.8 gm/dl (3.4-5.0) 02/28/24 00:40 Globulin 3.0 gm/dl (2.5-4.0) 02/28/24 00:40 Albumin/Globulin Ratio 1.6 (0.9-2) 02/28/24 00:40 Lipase 48 U/L (11-82) 02/28/24 00:40 HCG, Qual Negative (Negative) 02/28/24 00:40 Urine Color Yellow 02/28/24 00:40 Urine Appearance Clear (Clear) 02/28/24 00:40 Urine pH 6.0 (4.5-7.5) 02/28/24 00:40 Ur Specific [place] 1.005 (1.000-1.030) 02/28/24 00:40 Urine Protein Negative (Negative) 02/28/24 00:40 Urine Glucose (UA) Negative (Negative) 02/28/24 00:40 Urine Ketones Trace (Negative) H 02/28/24 00:40 Urine Blood Negative (Negative) 02/28/24 00:40 Urine Nitrite Negative (Negative) 02/28/24 00:40 Urine Bilirubin Negative (Negative) 02/28/24 00:40 Urine Urobilinogen Negative (Negative) 02/28/24 00:40 Ur Leukocyte Esterase Negative (Negative) 02/28/24 00:40 Impressions Abdomen/Pelvis CT 02/28/24 01:05 CR Exam(s): CT ABDOMEN + PELVIS With Contrast IV Amt: 93 ML OPTIRAY 320 EXAM: CT Abdomen and Pelvis With Intravenous Contrast CLINICAL HISTORY: Reason for exam: Abdominal pain - h/o Crohn's and SBO. TECHNIQUE: Axial computed tomography images of the abdomen and pelvis with intravenous contrast. CTDI is 6.66 mGy and DLP is 274.92 mGy-cm. Automated exposure control was utilized for the study. A dose lowering technique was utilized adhering to the principles of ALARA. CONTRAST: Patient received 93 ML OPTIRAY 320 of IV contrast COMPARISON: CT Abdomen Pelvis dated august 16 2023 FINDINGS: Lung bases: Unremarkable. No mass. No consolidation. ABDOMEN: Liver: Unremarkable. No mass. Gallbladder and bile ducts: Unremarkable. No calcified stones. No ductal dilation. Pancreas: Unremarkable. No mass. No ductal dilation. Spleen: Unremarkable. No splenomegaly. Adrenals: Unremarkable. No mass. Kidneys and ureters: Unremarkable. No solid mass. No hydronephrosis. Stomach and bowel: Small bowel obstruction extending to the ileocecal junction dilatation of distal ileal loops measuring up to 3.4 cm. Fecalization of multiple distal ileal loops extending to the ileocecal junction implies stasis. Adjacent inflammatory change noted which may be reactive in nature. Concurrent inflammatory bowel disease is also possible. Consider MR enterography if there is further concern. No mucosal thickening. PELVIS: Appendix: No findings to suggest acute appendicitis. Bladder: Unremarkable. No mass. Reproductive: Unremarkable as visualized. ABDOMEN and PELVIS: Intraperitoneal space: No evidence of pneumatosis, portal venous gas, or free air. Mild mesenteric ascites which may be reactive in nature. Bones/joints: No acute fracture. No dislocation. Soft tissues: Unremarkable. Vasculature: Unremarkable. No abdominal aortic aneurysm. Lymph nodes: Unremarkable. No enlarged lymph nodes. IMPRESSION: 1. Small bowel obstruction extending to the ileocecal junction dilatation of distal ileal loops measuring up to 3.4 cm. Fecalization of multiple distal ileal loops extending to the ileocecal junction implies stasis. Adjacent inflammatory change noted which may be reactive in nature. Concurrent inflammatory bowel disease is also possible. Consider MR enterography if there is further concern. 2. No evidence of pneumatosis, portal venous gas, or free air. 3. Mild mesenteric ascites which may be reactive in nature. 4. No other acute findings. Communications: Verify Receipt Electronically signed by: Homer Jerome MD 02/28/24 04:53 AM Code Status & VTE Plan Code Status Full code VTE Prophylaxis Plan VTE Prophylaxis will be ordered: Yes PG Care Time/CCT Total # of Minutes Spent Total Time Spent with Patient: Total time spent is greater than 50% in coordination of care (as documented) at patient's floor/unit and/or counseling patient: Coding Level of Care Code 27124 INT INP/OBS CARE 2/55MIN Diagnoses Small bowel obstruction K56.609 Crohn's disease of both small and large intestine K50.80
[2024-02-28] MEDS: PIPERACILLIN/TAZOBACTAM 4.5 GM/100 ML BAG IV ONE (06:19)
--- NOTE | 2024-02-28 07:17 | Gastrointestinal Consultation ---
Date of Consultation February 28, 2024 Assessment & Plan (1) Small bowel obstruction: She is passing flatus but agree with surgical consult. NPO for now (2) Crohn's disease of both small and large intestine: NPO and IV steroids. Would check and follow CRP and likely abdominal films. Plan As above: Agree with surgical consult IV Steroids NPO Check and trend CRP and repeat abdominal series likely in AM History of Present Illness Reason for Consultation: Crohn's Requesting Physician: Fanny Sanchez NP Attending Physician: Freeman Muñiz MD History of Present Illness 23 yo I F came n with abdominal pain, vomiting and constipation. She was diagnosed with Crohn's - she says of both the small and large intestine in September,. She was on steroids and was to be evaluated for biologics but had her care interrupted as she was traveling and she just remained on steroids. She states she got some food poisoning and was placed on Prednisone on top of her budesonide. When she had recurrent pain with vomiting she decided to come into the ER. I was contacted by ESTRELLA Sanchez this am who wanted to know what dose of steroids the patient should be on. She informed me that imaging studies showed a SBO. I asked if s surgical consultation was requested and Ms Sanchez told me the admitting team was to do this. When I evaluated the patient she had already received pain medication, IV steroids and IV fluids and appeared comfortable. PMH: Crohn's apparently of SB and colon diagnosed in September, PSH: Appendectomy FH: Negative for cancer or IBD SH: Tobacco: Denies ETOH: Rare use Recreational Drugs: Denies Allergies Allergy/AdvReac Type Severity Reaction Status Date / Time No Known Allergies Allergy Verified 10/04/23 11:40 Home Medications Medication Instructions Recorded Confirmed Type acetaminophen 325 mg tablet 650 mg PO QID PRN Pain 08/16/23 10/04/23 History (Tylenol) prednisone 10 mg tablet See Rx Instructions PO DAILY #126 10/04/23 10/04/23 Rx tabs Patient History Medical History No known health problems Surgical History History of laparoscopic appendectomy (08/17/23) Family History Other No family history of adverse response to anesthesia Social History Smoking Status: Never smoker Second Hand Exposure: No; Do You Dip or Chew Tobacco: No; Hx Alcohol Use: Yes Alcohol type: other Hx Substance Use: No Preferred Language: Algerian Communication Ability: Effective Platform Worker Required: No Beliefs That Will Affect Care: None Current Living Situation: Other Current Living Situation Comment: apartment with roommates Feels Safe at Home: Yes Assistive Devices: Glasses Review of Systems Review of Systems: Unremarkable except as listed below Gastrointestinal: She states she did have flatus today but no BM. She vomited water she tried to drink prior to coming to the hospital. Physical Exam Physical Exam: WD WN F NAD Constitutional: NAD Eyes: Sclera anicteric Conjunctiva not pale Respiratory: Lungs: Clear with good aeration Cardiovascular: Heart: Reg Gastrointestinal (Abdomen): Decreased but present BS - soft and nontender (evaluated after she had received pain meds). Musculoskeletal: Neg CCE Skin: Warm and dry Neurologic: A/O Results & Data Vital Signs (Past 12 Hours) Vital Signs Temp Pulse Pulse Resp BP BP Pulse Ox 02/28/24 06:23 106 H 16 125/84 100 02/28/24 05:54 115 H 20 100 02/28/24 04:34 88 16 97 02/28/24 03:01 109 H 18 120/86 97 02/28/24 02:07 109 H 19 124/83 99 02/28/24 01:20 111 H 18 124/96 100 02/28/24 00:09 36.4 C L 97 H 18 115/73 100 O2 Del Method 02/28/24 06:23 Room Air 02/28/24 05:54 Room Air 02/28/24 04:34 Room Air 02/28/24 03:01 Room Air 02/28/24 02:07 Room Air 02/28/24 01:20 Room Air 02/28/24 00:09 Room Air Laboratory Results Mild leukocytosis and trace ketones in urine. Otherwise CBC and chem profile unremarkable CT showing SBO and extensive inflammation SB PG Care Time/CCT Total # of Minutes Spent Total Time Spent with Patient: Total time spent is greater than 50% in coordination of care (as documented) at patient's floor/unit and/or counseling patient: Coding Level of Care Code 49075 IN/OBS CONSULT LVL 4,60M Diagnoses Small bowel obstruction K56.609 Crohn's disease of both small and large intestine with intestinal obstruction K50.812 Digestive disease complication type: with intestinal obstruction (2) Crohn's disease of both small and large intestine Digestive disease complication type: with intestinal obstruction Qualified Code(s): K50.812 - Crohn's disease of both small and large intestine with intestinal obstruction
[2024-02-28 07:59] LABS: C Reactive Protein 0.64 mg/dl (0-0.5)
[2024-02-28] MEDS ORDERED: ACETAMINOPHEN 1000 MG/100 ML IV IV PRN (09:00)
[2024-02-28] MEDS ORDERED: ONDANSETRON INJ 2 MG/ML 2 ML VIAL IV PRN (09:00)
[2024-02-28] MEDS: PIPERACILLIN/TAZOBACTAM 4.5 GM/100 ML BAG IV SCH (10:06)
[2024-02-28] MEDS: NSS + 20MEQ KCL 20 MEQ/1,000 ML BAG IV SCH (10:06)
[2024-02-28] MEDS: PANTOprazole 40 MG in SYRINGE 0 ML IV SCH (10:07)
--- NOTE | 2024-02-28 12:47 | Surgery Consultation ---
Date of Consultation February 28, 2024 Assessment & Plan (1) Small bowel obstruction: Her CT images and results were personally viewed and interpreted by myself No plans for any surgical intervention as this is likely due to her Crohn's disease She has a benign abdominal exam She can start liquids from a surgical standpoint We will follow (2) Crohn's disease of both small and large intestine: History of Present Illness Reason for Consultation: Small bowel obstruction Attending Physician: Freeman Muñiz MD History of Present Illness This is a 23-year-old female who was admitted with a small bowel obstruction likely secondary to Crohn's disease. She states that starting yesterday morning she had nausea and vomiting multiple times that was coupled with generalized abdominal pain without radiation. No aggravating or relieving factors to the pain. She was diagnosed with Crohn's disease earlier this year and has only been on steroid treatment for this. Previous abdominal surgeries include laparoscopic appendectomy. She states she did have a small bowel movement yesterday and had a normal bowel movement 2 days ago. She denies any fevers or chills. She states she overall feels better today than when she was admitted yesterday. Allergies Allergy/AdvReac Type Severity Reaction Status Date / Time No Known Allergies Allergy Verified 10/04/23 11:40 Home Medications Medication Instructions Recorded Confirmed Type acetaminophen 325 mg tablet 650 mg PO QID PRN Pain 08/16/23 10/04/23 History (Tylenol) prednisone 10 mg tablet See Rx Instructions PO DAILY #126 10/04/23 10/04/23 Rx tabs budesonide 3 mg 9 mg PO DAILY 02/28/24 History capsule,delayed,extended release Patient History Medical History No known health problems Surgical History History of laparoscopic appendectomy (08/17/23) Laparoscopic Appendectomy(Not Applicable) - Jayson Serna DO Family History Other No family history of adverse response to anesthesia Social History Smoking Status: Never smoker Second Hand Exposure: No; Do You Dip or Chew Tobacco: No; Hx Alcohol Use: Yes Alcohol type: wine Hx Substance Use: No Preferred Language: Canadian Communication Ability: Effective Jukebox Route Driver Required: No Beliefs That Will Affect Care: None Current Living Situation: Other Current Living Situation Comment: Off campus apartment Feels Safe at Home: Yes Assistive Devices: None Review of Systems Constitutional: no fever and no chills Eyes: no blind spots and no dry eyes Ear, Nose, Mouth, Throat: no ear pain and no hearing loss Respiratory: no cough and no dyspnea Cardiovascular: no chest pain and no dyspnea on exertion Gastrointestinal: + abdominal pain, + nausea, + vomiting a nd + constipation; no diarrhea/loose stools and no blood in stools Genitourinary: no dysuria and no urinary hesitancy Musculoskeletal: no back pain and no neck pain Integumentary: no acne, no skin ulcer and no sores Neurologic: no gait abnormality and no headache(s) Psychiatric: no behavioral changes and no depression Hematologic / Lymphatic: no easy bleeding and no easy bruising Physical Exam Constitutional: WD/WN, vitals as above Eyes: PERRL, conjunctivae normal, anicteric sclerae ENMT: external ear and nose normal, oropharynx normal Neck: trachea midline, no thyromegaly Respiratory: normal respiratory effort, lungs clear to auscultation Cardiovascular: RRR, no murmur, no edema Gastrointestinal (Abdomen): Inspection/Auscultation: abdomen normal to inspection; abdomen not distended Percussion/Palpation: abdomen soft; abdomen nontender and no guarding Musculoskeletal: no cyanosis or clubbing, extremities motor strength 5/5 Skin: no rashes, warm and dry Neurologic: PERRL, EOMI, accommodation nl, no face palsy, no dysarthria Psychiatric: A+Ox3, euthymic affect Results & Data Vital Signs (Past 12 Hours) Vital Signs Temp Pulse Resp BP Pulse Ox O2 Del Method 02/28/24 09:01 36.8 C 79 16 111/72 99 Room Air 02/28/24 08:00 84 20 114/67 97 Room Air 02/28/24 06:23 106 H 16 125/84 100 Room Air 02/28/24 05:54 115 H 20 100 Room Air 02/28/24 04:34 88 16 97 Room Air 02/28/24 03:01 109 H 18 120/86 97 Room Air 02/28/24 02:07 109 H 19 124/83 99 Room Air 02/28/24 01:20 111 H 18 124/96 100 Room Air PG Care Time/CCT Total # of Minutes Spent Total Time Spent with Patient: Total time spent is greater than 50% in coordination of care (as documented) at patient's floor/unit and/or counseling patient: Coding Level of Care Code 60380 IN/OBS CONSULT LVL 5,80M Diagnoses Small bowel obstruction K56.609 Crohn's disease of both small and large intestine with intestinal obstruction K50.80
[2024-02-28] MEDS ORDERED: methylPREDNISolone 1000 MG/16 ML IV SCH (13:00)
[2024-02-28] MEDS: methylPREDNISolone 30 MG in SYRINGE 0 ML IV SCH (13:19)
--- NOTE | 2024-02-28 15:07 | Hospitalist Progress Note ---
Date of Service February 28, 2024 Assessment & Plan (1) Small bowel obstruction: Plan: Small bowel obstruction likely in the setting of Crohn's disease exacerbation. Patient was supposed to have started on biologics but hasn't yet due to logistics. Methylprednisolone q8 hours Zosyn 4.5 g IV every 8 hours Pantoprazole 40 mg IV daily NSS + KCl 20 mill equivalents at 100 mL/h x 1 bag GI consulted - IV steroids - trend CRP General surgery consulted - no plan for OR - start liquid diet Tylenol and Morphine for pain control (2) Crohn's disease of both small and large intestine: Plan: Hold home prednisone Plan Dispo: continued inpatient stay DVT proh: low risk Admission and Anticipated Discharge Date Admission Date: February 28, 2024 Subjective Patient seen resting in bed. Pain is improved. Has passed gas, no BM yet Review of Systems Review of Systems: All systems reviewed & are unremarkable except as noted in Subjective Physical Exam Physical Exam: General: NAD, VS as above, sitting up in bed, appears well Resp: normal respiratory effort, lungs clear to auscultation CV: RRR, no murmur, Abd: soft, active bowel sounds Extremities: Moves all extremities, no edema Neuro: A&O x3, Skin: intact, no lesions noted Results & Data Results & Data Vital Signs (Past 12 Hours) Vital Signs Temp Pulse Resp BP Pulse Ox O2 Del Method 02/28/24 14:25 36.4 C L 87 14 103/66 99 Room Air 02/28/24 09:01 36.8 C 79 16 111/72 99 Room Air 02/28/24 08:00 84 20 114/67 97 Room Air 02/28/24 06:23 106 H 16 125/84 100 Room Air 02/28/24 05:54 115 H 20 100 Room Air 02/28/24 04:34 88 16 97 Room Air 02/28/24 03:01 109 H 18 120/86 97 Room Air PG Care Time/CCT Total # of Minutes Spent Total Time Spent with Patient: Total time spent is greater than 50% in coordination of care (as documented) at patient's floor/unit and/or counseling patient: Coding Level of Care Code None Diagnoses Small bowel obstruction K56.609 Crohn's disease of both small and large intestine with intestinal obstruction K50.80
[2024-02-29 07:57] LABS: Hematocrit (blood only) 36.4 % (37.0-47.0); Hemoglobin 11.5 g/dl (12.0-16.0); Immature Granulocytes # (auto) 0.04 K/uL (0.01-0.20); Immature Granulocytes % (auto) 0.5 %; Lymphocytes # (auto) 0.93 K/uL (1.20-3.40); Lymphocytes % (auto) 10.6 %; Mean Corpuscular Hemoglobin 25.4 pg (25.0-34.0); Mean Corpuscular Hgb Conc 31.6 g/dL (32.0-36.0); Mean Corpuscular Volume 80.4 fL (80.0-100.0); Mean Platelet Volume 9.2 fL (9.4-12.4); Monocytes # (auto) 0.16 K/uL (0.11-0.59); Monocytes % (auto) 1.8 %; Neutrophils # (auto) 7.66 K/uL (1.40-6.50); Neutrophils % (auto) 87.1 %; Platelet Count 290 K/uL (130-400); RDW Coefficient of Variation 14.8 % (11.5-14.5); RDW Standard Deviation 43.2 fL (36.4-46.3); Red Blood Count 4.53 M/uL (4.20-5.40); White Blood Count 8.79 K/ul (4.8-10.8)
[2024-02-29 08:30] LABS: Albumin Globulin Ratio 1.5 (0.9-2); Albumin Level 4.1 gm/dl (3.4-5.0); BUN Creatinine Ratio 9.1 (10-20); Bilirubin,Total 0.5 mg/dl (0.2-1.0); C Reactive Protein 0.73 mg/dl (0-0.5); Calcium 9.5 mg/dl (8.6-10.3); Creatinine Clr Calc Pharmacy 101.1 ml/min; Est GFR (African American) 146.4 ml/min; Est GFR (Non-African American) 126.3 ml/min; Globulin 2.7 gm/dl (2.5-4.0); Potassium 4.2 mmol/L (3.5-5.1); Total Protein 6.8 gm/dl (6.0-8.3)
--- NOTE | 2024-02-29 09:32 | Surgery Progress Note ---
Date of Service February 29, 2024 Assessment & Plan (1) Small bowel obstruction: Plan: She is tolerating a full liquid diet without nausea and vomiting She is passing flatus Again this is most likely due to her Crohn's and not adhesive bowel obstruction No plans for any surgical intervention Surgery will sign off at this time, please call with any questions or concerns (2) Crohn's disease of both small and large intestine: Admission and Anticipated Discharge Date Admission Date: February 28, 2024 Subjective Patient seen and examined. Still with mild abdominal pain. She is tolerating full liquids. She is passing flatus without bowel movement. Review of Systems Constitutional: no fever and no chills Eyes: no blind spots and no dry eyes Ear, Nose, Mouth, Throat: no ear pain and no hearing loss Respiratory: no cough and no dyspnea Cardiovascular: no chest pain and no dyspnea on exertion Gastrointestinal: + abdominal pain, + nausea, + vomiting a nd + constipation; no diarrhea/loose stools and no blood in stools Genitourinary: no dysuria and no urinary hesitancy Musculoskeletal: no back pain and no neck pain Integumentary: no acne, no skin ulcer and no sores Neurologic: no gait abnormality and no headache(s) Psychiatric: no behavioral changes and no depression Hematologic / Lymphatic: no easy bleeding and no easy bruising Physical Exam Constitutional: WD/WN, vitals as above Eyes: PERRL, conjunctivae normal, anicteric sclerae ENMT: external ear and nose normal, oropharynx normal Neck: trachea midline, no thyromegaly Respiratory: normal respiratory effort, lungs clear to auscultation Cardiovascular: RRR, no murmur, no edema Gastrointestinal (Abdomen): Inspection/Auscultation: abdomen normal to inspection; abdomen not distended Percussion/Palpation: abdomen soft; abdomen nontender and no guarding Musculoskeletal: no cyanosis or clubbing, extremities motor strength 5/5 Skin: no rashes, warm and dry Neurologic: PERRL, EOMI, accommodation nl, no face palsy, no dysarthria Psychiatric: A+Ox3, euthymic affect Results & Data Vital Signs (Past 12 Hours) Vital Signs Temp Pulse Resp BP Pulse Ox O2 Del Method 02/29/24 07:16 36.6 C 90 16 118/75 100 Room Air PG Care Time/CCT Total # of Minutes Spent Total Time Spent with Patient: Total time spent is greater than 50% in coordination of care (as documented) at patient's floor/unit and/or counseling patient: Coding Level of Care Code 71407 SUB INP/OBS CARE Diagnoses Small bowel obstruction K56.609 Crohn's disease of both small and large intestine with intestinal obstruction K50.80
--- NOTE | 2024-02-29 10:41 | Gastroenterology Progress Note ---
Date of Service February 29, 2024 Assessment & Plan (1) Small bowel obstruction: Plan 23 year old female with Crohn's disease diagnosed on colonoscopy in September 2023 admitted w/ small bowel obstruction extending to the ileocecal junction w/ adjacent inflammatory change. She was made NPO and started on IV steroids --> improvement of abdominal pain, passing gas but no BM yet. Appreciate general surgery evaluation Diet was advanced to low fiber OOB to chair and ambulation encouraged Stop Budesonide Continue IV steroids today Anticipate transition to oral prednisone Monday with a slow taper 40 mg once daily for 2 weeks 30 mg once daily for 1 week 20 mg once daily for 1 week 10 mg once daily for 1 week 5 mg once daily for 1 week then stop Humira authorization is pending Thank you for allowing us to participate in the care of this patient. Please call with any acute changes, questions or concerns. Please see addendum below with additional recommendation from my supervising physician. I spent a total of 40 minutes on the date of service in review of patient's record, and previously obtained information in person and appropriate medical visit, discussion and education of plan, with patient and/or caregiver, placing orders for tests/re ferral/procedures as medically necessary and documentation of pertinent clinical information in patient's medical records for their visit today. Admission and Anticipated Discharge Date Admission Date: February 28, 2024 Supervising Physician Co-Signing Physician Notes Patient seen and examined. Case discussed with Adrienne MYLES. Patient much improved. Tolerating diet, had BM - no abdominal pain. Rec: Switch to po steroids in the morning. She has scheduled f/u in GI clinic next week. IP GI Service will sign off. Subjective Pt was seen and evaluated, chart reviewed. Feeling better this AM. Surgery advanced diet and tolerating. Passing gas but no stool yet. Authorization started for Humira. Quant Gold negative in September 2023. Hep B immunity. CRP 0.64 --> 0.73 CTAP 2023: Small bowel obstruction extending to the ileocecal junction dilatation of distal ileal loops measuring up to 3.4 cm. Fecalization of multiple distal ileal loops extending to the ileocecal junction implies stasis. Adjacent inflammatory change noted which may be reactive in nature. Concurrent inflammatory bowel disease is also possible. Consider MR enterography if there is further concern. No evidence of pneumatosis, portal venous gas, or free air.Mild mesenteric ascites which may be reactive in nature. No other acute findings. MRE 2023: Focal region of thickened, aperistaltic bowel in the proximal ascending colon compatible with findings of Crohn's disease. Colonoscopy 2023: - Preparation of the colon was fair. - Diffuse severe inflammation was found in the ascending colon secondary to colitis. Biopsied. Tattooed. - Biopsies were taken with a cold forceps for histology in the entire colon. Review of Systems Review of Systems: All other findings negative except as noted in HPI. Physical Exam Constitutional: WD/WN, vitals as above Respiratory: normal respiratory effort, lungs clear to auscultation Cardiovascular: Rate/Rhythm: regular rate and regular rhythm Gastrointestinal (Abdomen): normal bowel sounds, soft, nontender, no hepatosplenomegaly Skin: no rashes, warm and dry Results & Data Results & Data Vital Signs (Past 12 Hours) Vital Signs Temp Pulse Resp BP Pulse Ox O2 Del Method 02/29/24 07:16 36.6 C 90 16 118/75 100 Room Air Laboratory Results 02/29/24 Range/Units 06:57 WBC 8.79 (4.8-10.8) K/ul RBC 4.53 (4.20-5.40) M/uL Hgb 11.5 L (12.0-16.0) g/dl Hct 36.4 L (37.0-47.0) % MCV 80.4 (80.0-100.0) fL MCH 25.4 (25.0-34.0) pg MCHC 31.6 L (32.0-36.0) g/dL RDW Std Deviation 43.2 (36.4-46.3) fL RDW Coeff of Joshua 14.8 H (11.5-14.5) % Plt Count 290 (130-400) K/uL MPV 9.2 L (9.4-12.4) fL Immature Gran % (Auto) 0.5 % Neut % (Auto) 87.1 % Lymph % (Auto) 10.6 % [place] % (Auto) 1.8 % Eos % (Auto) 0.0 % Baso % (Auto) 0.0 % Neut # (Auto) 7.66 H (1.40-6.50) K/uL Lymph # (Auto) 0.93 L (1.20-3.40) K/uL [place] # (Auto) 0.16 (0.11-0.59) K/uL Eos # (Auto) 0.00 (0.00-0.50) K/uL Baso # (Auto) 0.00 (0.00-0.20) K/uL Immature Gran # (Auto) 0.04 (0.01-0.20) K/uL Sodium 140 (136-145) mmol/L Potassium 4.2 (3.5-5.1) mmol/L Chloride 106 (98-107) mmol/L Carbon Dioxide 29 (21-32) mmol/L Anion Gap 5 (3-11) BUN 6 (6-23) mg/dl Creatinine 0.66 (0.6-1.2) mg/dl Est Cr Clr Drug Dosing 101.1 ml/min Est GFR ( Amer) 146.4 ml/min Est GFR (Non-Af Amer) 126.3 ml/min BUN/Creatinine Ratio 9.1 L (10-20) Glucose 116 H (70-99(Fasting)) mg/dl Calcium 9.5 (8.6-10.3) mg/dl Magnesium 2.0 (1.7-2.4) mg/dl Total Bilirubin 0.5 (0.2-1.0) mg/dl AST 10 L (13-39) U/L ALT 9 (7-52) U/L Alkaline Phosphatase 38 (34-104) U/L C-Reactive Protein 0.73 H (0-0.5) mg/dl Total Protein 6.8 (6.0-8.3) gm/dl Albumin 4.1 (3.4-5.0) gm/dl Globulin 2.7 (2.5-4.0) gm/dl Albumin/Globulin Ratio 1.5 (0.9-2) PG Care Time/CCT Total # of Minutes Spent Total Time Spent with Patient: Total time spent is greater than 50% in coordination of care (as documented) at patient's floor/unit and/or counseling patient: Coding Level of Care Code 68671 SUB INP/OBS CARE 25MIN Diagnoses Small bowel obstruction K56.609
--- NOTE | 2024-02-29 16:21 | Hospitalist Progress Note ---
Date of Service February 29, 2024 Assessment & Plan (1) Small bowel obstruction: Plan: Small bowel obstruction likely in the setting of Crohn's disease exacerbation. Patient was supposed to have started on biologics but hasn't yet due to logistics. PPI transitioned to PO Abx stopped as no signs of infectious cause, tolerating diet. GI consulted - IV steroids through today - start PO prednisone taper 03/01 - has outpatient follow up out next week General surgery consulted - no plan for OR - tolerating diet, will sign off. Tylenol and Morphine for pain control (2) Crohn's disease of both small and large intestine: Plan: Hold home prednisone - will treat with steroid taper as recommended by GI Plan Dispo: continued inpatient stay, anticipate discharge home tomorrow DVT proh: low risk Case discussed with Aminta GI YAQUELIN Admission and Anticipated Discharge Date Admission Date: February 28, 2024 Subjective Patient seen sitting up in bed after lunch. no family present at bedside had a small BM this afterrnon rates her pain a 2/10 Review of Systems Review of Systems: All systems reviewed & are unremarkable except as noted in Subjective Physical Exam Physical Exam: General: NAD, VS as above, sitting up in bed, appears well Resp: normal respiratory effort, lungs clear to auscultation CV: RRR, no murmur, Abd: soft, active bowel sounds Extremities: Moves all extremities, no edema Neuro: A&O x3, Skin: intact, no lesions noted Results & Data Results & Data Vital Signs (Past 12 Hours) Vital Signs Temp Pulse Resp BP Pulse Ox O2 Del Method 02/29/24 15:12 37.2 C 93 H 18 107/65 100 Room Air 02/29/24 07:16 36.6 C 90 16 118/75 100 Room Air Laboratory Results CBC and chemistry reviewed PG Care Time/CCT Total # of Minutes Spent Total Time Spent with Patient: Total time spent is greater than 50% in coordination of care (as documented) at patient's floor/unit and/or counseling patient: Coding Level of Care Code 54760 SUB INP/OBS CARE 3/50MIN Diagnoses Small bowel obstruction K56.609 Crohn's disease of both small and large intestine with intestinal obstruction K50.80
[2024-02-29 20:01] VITALS: PULSE 83
[2024-02-29] MEDS: ACETAMINOPHEN 500 MG TAB PO PRN (20:23)
[2024-02-29] MEDS: MoRPHine SULFATE 2 MG/ML CARP IV PRN (22:00)
[2024-03-01 07:19] VITALS: BP 116/76; RESP 18; TEMP 98.1; O2SAT 99
[2024-03-01] MEDS: predniSONE 20 MG TAB PO SCH (08:16)
[2024-03-01] MEDS: PANTOprazole 40 MG TAB PO SCH (08:17)
[2024-03-01] MEDS: ACETAMINOPHEN 1,000 MG/100 ML VIAL IV PRN (08:23)
--- NOTE | 2024-03-01 12:51 | Discharge Summary ---
Discharge Summary Date of Service March 01, 2024 Principal Dx & Hospital Course #1 = Principal Diagnosis (1) Small bowel obstruction: Small bowel obstruction likely in the setting of Crohn's disease exacerbation. Patient was supposed to have started on biologics but hasn't yet due to logistics. PPI transitioned to PO Abx stopped as no signs of infectious cause, tolerating diet. GI consulted - IV steroids through today - start PO prednisone taper 03/01 40 mg once daily for 2 weeks 30 mg once daily for 1 week 20 mg once daily for 1 week 10 mg once daily for 1 week 5 mg once daily for 1 week then stop - has outpatient follow up out next week General surgery consulted - no plan for OR - tolerating diet, will sign off. (2) Crohn's disease of both small and large intestine: Hold home prednisone - will treat with steroid taper as recommended by GI Plan Dispo: discharge to home today Notes For Next Care Provider admitted with SBO/chrons flare. first two weeks of steroid taper sent in. GI team working on humira . Medication Changes From Visit Steroid taper (first two weeks sent) PPI for GI protection on high dose steroids Admission HPI Per Admitting Provider The patient is a 23-year-old female who was diagnosed with Crohn's disease of both small and large intestine in September of this year. She had undergone a prednisone taper from September through November, and then ultimately was to be started on Biologics. However, the patient had to go to [place] for the summertime, and was to go to [facility] for a while as well. She reports that while in [place] in December, she did not end up in the hospital there, and was again placed on a prednisone taper along with budesonide. The patient reports that she had run out of budesonide last week, when her appointment with [facility] gastroenterology was temporarily moved due to moving into a new building. She developed acute abdominal pain, with nausea, without vomiting, over the past 24 hours and presented to the ED for assessment. In the [facility] ED, CT scan of the abdomen pelvis revealed a small bowel obstruction to the ileocecal junction, with fecalization suggestive of stasis, with adjacent inflammation, consistent with inflammatory bowel disease. She was then referred for evaluation for admission. Discharge Exam General: NAD, VS as above, sitting up in bed, appears well Resp: normal respiratory effort, lungs clear to auscultation CV: RRR, no murmur, Abd: soft, active bowel sounds Extremities: Moves all extremities, no edema Neuro: A&O x3, Skin: intact, no lesions noted Discharge Plan Discharge Items Patient Disposition: Home - Self-Care Reason For Visit: CROHNS DISEASE,BODY PAIN, CHILLS Discharge Diagnosis: Chrons flare, SBO Condition on Discharge: Good Activity: Resume your previous activity Non-emergency contact: Primary Care Provider and Cloth Mender Call non-emergency contact if: you have any medication questions, your symptoms worsen and your temperature is above 101 Follow-up/Referrals: Aminta Deleon CRNP [Nurse Practitioner] - (keep follow up appointment) [facility] [Primary Care Provider] - Diet: Low Fiber and Vegetarian (Lacto-Ovo) Addtl Attending Provider Instructions: Ms. Armstrong, You were hospitalized after having worsening abdominal pains that turned out to be a small bowel obstruction - that resolved spontaneously. It was thought to be caused by a Chron's flare. For that reason, you were started on IV steroids and transitioned to oral steroids at the recommendation of the GI team. Here is the taper: 40 mg once daily for 2 weeks 30 mg once daily for 1 week 20 mg once daily for 1 week 10 mg once daily for 1 week 5 mg once daily for 1 week then stop The GI team is working on your Humira. I have sent in the first 2 weeks of the steroid taper. If they want to continue the taper, make sure this is sent in during your GI appointment. I have also sent in Protonix, which is a proton pump inhibitor, that will help protect your stomach while on the high dose steroids. Continue Tylenol and ibuprofen as needed for pain. Would recommend a low fiber diet until your bowel movements return to normal. I have attached a flyer about this below. Follow-up appointments: Make an appointment with your primary care physician within one week of discharge. A copy of this summary will be sent to them. Every time you see your primary care physician, or any other doctor, bring your medication list, and a list of questions. CONTACT YOUR PRIMARY CARE PROVIDER if you experience any of the following: Shortness of breath or difficulty breathing Fevers or chills Feeling tired with normal activity or experiencing dizziness or fainting Difficulty following your treatment plan, or difficulty taking medications CALL 911 OR GO TO THE EMERGENCY DEPARTMENT if you experience any of the following: Severe abdominal pain or nausea/vomiting Severe chest pain, or chest pain that radiates (moves) to your jaw or arm Sudden, severe shortness of breath or difficulty breathing Thank you for allowing us to participate in your care. Pending Studies at Discharge: No Stand-Alone Forms: My [facility], Work/School Release, Smoking Cessation Medications and DC Order Prescriptions: New prednisone 20 mg Tablet 40 mg PO QAM 13 Days Qty: 26 0RF pantoprazole 40 mg Tablet,Delayed Release (Dr/Ec) 40 mg PO QAM Qty: 30 1RF Continued acetaminophen [Tylenol] 325 mg Tablet 650 mg PO QID PRN (Reason: Pain) Discontinued prednisone 10 mg tablet See Rx Instructions PO DAILY Qty: 126 0RF Rx Instructions: Start at 40 mg daily for one week, then decrease by 5 mg weekly until complete. PO DAILY; budesonide 3 mg capsule,delayed,extend.release 9 mg PO DAILY No Action Humira(CF) Pen [id number] 80 mg/0.8 mL pen injector kit See Rx Instructions subcut .COMPLEX Qty: 3 0RF Rx Instructions: inject two - 80 mg/0.8 mL pens on Day 1; inject one - 80 mg/0.8 mL pen on Day 15 of therapy subcut Discharge Orders: Discharge Order (Routine); Ordered 03/01/24 Ordered By: Liane Luna Admission Data Admit Date/Time: 02/28/24 06:02 Attending Provider: Freeman Muñiz Admit Provider: Brien Barker Primary Care Provider: [facility] Other Providers: Nelson Martel; Brien Barker; Corona Grimes Other Interventions: Discharge Summary Assessment (RN) Last Done: 03/01/24 12:54 Hospital Stay Data Consultations 02/28/24 05:41 ED Decision to Admit Stat 02/28/24 06:17 Consult Gastroenterology Stat 02/28/24 08:56 Consult General Surgery Stat 02/28/24 09:00 Consult Gastroenterology Routine Diagnostic Imagining Performed Abdomen/Pelvis CT 02/28/24 01:05 CR Exam(s): CT ABDOMEN + PELVIS With Contrast IV Amt: 93 ML OPTIRAY 320 EXAM: CT Abdomen and Pelvis With Intravenous Contrast CLINICAL HISTORY: Reason for exam: Abdominal pain - h/o Crohn's and SBO. TECHNIQUE: Axial computed tomography images of the abdomen and pelvis with intravenous contrast. CTDI is 6.66 mGy and DLP is 274.92 mGy-cm. Automated exposure control was utilized for the study. A dose lowering technique was utilized adhering to the principles of ALARA. CONTRAST: Patient received 93 ML OPTIRAY 320 of IV contrast COMPARISON: CT Abdomen Pelvis dated august 16 2023 FINDINGS: Lung bases: Unremarkable. No mass. No consolidation. ABDOMEN: Liver: Unremarkable. No mass. Gallbladder and bile ducts: Unremarkable. No calcified stones. No ductal dilation. Pancreas: Unremarkable. No mass. No ductal dilation. Spleen: Unremarkable. No splenomegaly. Adrenals: Unremarkable. No mass. Kidneys and ureters: Unremarkable. No solid mass. No hydronephrosis. Stomach and bowel: Small bowel obstruction extending to the ileocecal junction dilatation of distal ileal loops measuring up to 3.4 cm. Fecalization of multiple distal ileal loops extending to the ileocecal junction implies stasis. Adjacent inflammatory change noted which may be reactive in nature. Concurrent inflammatory bowel disease is also possible. Consider MR enterography if there is further concern. No mucosal thickening. PELVIS: Appendix: No findings to suggest acute appendicitis. Bladder: Unremarkable. No mass. Reproductive: Unremarkable as visualized. ABDOMEN and PELVIS: Intraperitoneal space: No evidence of pneumatosis, portal venous gas, or free air. Mild mesenteric ascites which may be reactive in nature. Bones/joints: No acute fracture. No dislocation. Soft tissues: Unremarkable. Vasculature: Unremarkable. No abdominal aortic aneurysm. Lymph nodes: Unremarkable. No enlarged lymph nodes. IMPRESSION: 1. Small bowel obstruction extending to the ileocecal junction dilatation of distal ileal loops measuring up to 3.4 cm. Fecalization of multiple distal ileal loops extending to the ileocecal junction implies stasis. Adjacent inflammatory change noted which may be reactive in nature. Concurrent inflammatory bowel disease is also possible. Consider MR enterography if there is further concern. 2. No evidence of pneumatosis, portal venous gas, or free air. 3. Mild mesenteric ascites which may be reactive in nature. 4. No other acute findings. Communications: Verify Receipt Electronically signed by: Homer Jerome MD 02/28/24 04:53 AM Pending Results Patient Have Any Pending Studies at Discharge: No Discharge Instructions Given to Patient (Per Discharging Provider) Ms. Armstrong, You were hospitalized after having worsening abdominal pains that turned out to be a small bowel obstruction - that resolved spontaneously. It was thought to be caused by a Chron's flare. For that reason, you were started on IV steroids and transitioned to oral steroids at the recommendation of the GI team. Here is the taper: 40 mg once daily for 2 weeks 30 mg once daily for 1 week 20 mg once daily for 1 week 10 mg once daily for 1 week 5 mg once daily for 1 week then stop The GI team is working on your Humira. I have sent in the first 2 weeks of the steroid taper. If they want to continue the taper, make sure this is sent in during your GI appointment. I have also sent in Protonix, which is a proton pump inhibitor, that will help protect your stomach while on the high dose steroids. Continue Tylenol and ibuprofen as needed for pain. Would recommend a low fiber diet until your bowel movements return to normal. I have attached a flyer about this below. Follow-up appointments: Make an appointment with your primary care physician within one week of discharge. A copy of this summary will be sent to them. Every time you see your primary care physician, or any other doctor, bring your medication list, and a list of questions. CONTACT YOUR PRIMARY CARE PROVIDER if you experience any of the following: Shortness of breath or difficulty breathing Fevers or chills Feeling tired with normal activity or experiencing dizziness or fainting Difficulty following your treatment plan, or difficulty taking medications CALL 911 OR GO TO THE EMERGENCY DEPARTMENT if you experience any of the following: Severe abdominal pain or nausea/vomiting Severe chest pain, or chest pain that radiates (moves) to your jaw or arm Sudden, severe shortness of breath or difficulty breathing Thank you for allowing us to participate in your care. Total Time Total Time Spent Total Time Spent (In Minutes): Time spent day of discharge 35 minutes including direct patient care, medication reconciliation, documentation, review of labs and images, and coordination of care. Coding Level of Care Code 68584 INP/OBS DISCH >30 MIN Diagnoses Small bowel obstruction K56.609 Crohn's disease of both small and large intestine with intestinal obstruction K50.80
== END 2024-03-01 13:36 | disposition home or self-care (01) | DRG 387 ==
LOC: SUATTDRO → ED 23:53 → 3E 02-28 06:02 → SUATTDRO 02-28 06:02 → 3E 02-28 08:30

== ENCOUNTER 2024-03-25 09:24 | Inpatient (IN) ==
--- NOTE | 2024-03-25 10:00 | Emergency Department Note ---
Impression & Plan Crohn's disease of both small and large intestine, Abdominal pain ED Provider Note NAME: LALA GARCIA AGE: 23 SEX: F : 2000 ARRIVES VIA: Walk-In INFORMANT: Patient ED PROVIDER(S): SHAR Murrieta, Zane Dexter MD CHIEF COMPLAINT: Abdominal pain HISTORY OF PRESENT ILLNESS: This 23-year-old female patient presents to the emergency department via private vehicle for evaluation of low abdominal pain, nausea and vomiting. She reports a history of Crohn's, with small bowel obstruction last month that required hospital admission. She states she noted 4:00 this morning she is having similar pain to her previous bowel obstruction. She reports fevers and chills, and pain she rates as 8/10. She states persistent vomiting, with nausea. She states no diarrhea, or constipation, she reports no dysuria. She denies chest pain or shortness of breath. REVIEW OF SYSTEMS: A review of systems was performed with positives and pertinent negatives listed in the history of present illness. All other systems were reviewed and are negative. ALLERGIES: See below MEDICATIONS: See below PMH: See below PHYSICAL EXAM: VITALS: Vitals are noted on the nurse's note and reviewed by myself. Vital signs stable. GENERAL: 23-year-old female, in mild distress from pain, nondiaphoretic, well- developed well-nourished. SKIN: The skin was without rashes, erythema, edema, or bruising. HEAD: Normocephalic atraumatic. NECK: Supple without nuchal rigidity. No lymphadenopathy. No thyromegaly. Cervical spine is nontender. No JVD. HEART: Tachycardia without murmurs gallops or rubs LUNGS: Clear to auscultation bilaterally without wheezes, rales or rhonchi. No retractions or accessory muscle use. ABDOMEN: Positive bowel sounds x 4. Soft, diffusely tender to palpation in the low abdomen, no rebound tenderness or guarding. MUSCULOSKELETAL: No muscle atrophy, erythema, or edema noted. Normal gait. Strength 5/5 throughout. NEURO: Patient was alert and oriented to person place and time. No focal neurological deficits. MEDICAL DECISION MAKING: The patient is a 23-year-old female who arrives to the emergency department for evaluation of the above-stated complaint. A saline lock was established, CBC, CMP, lipase, stool culture, were obtained. CBC shows leukocytosis, 20.27, stable hemoglobin and hematocrit, CMP no significant abnormalities, lipase negative, beta-hCG qualitative negative. Procalcitonin, lactate, and blood cultures were also obtained due to the leukocytosis. Procalcitonin negative, lactate 2.2. CT imaging of the abdomen and pelvis with IV contrast was obtained which shows thickening and luminal narrowing of the ascending colon with surrounding fat stranding, of the distal ileum. Findings are consistent with continued inflammation/stricturing, malignancy is noted, however considered less likely given the decrease in size of the adjacent lymph nodes. Urinalysis negative for infection, stool GI PCR not obtained during her stay in the emergency department. The patient was provided 2 L of normal saline, 4 mg of IV Zofran, 2 mg of morphine, 10 mg of IV Toradol, and 1 g of IV acetaminophen for pain control and nausea. She was also provided 4.5 g of IV Zosyn, for presumed infection based on lab work. Upon reevaluation the patient reports a significant reduction in pain, however she states it is beginning to return. 4 mg of morphine was ordered and administered to the patient. I spoke with case management to facilitate admission to the hospital. Dr. Zhou from the [facility] hospitalist group agreed to accept the patient under his care, and recommended ordering 40 mg of IV Solu-Medrol. Solu-Medrol was ordered and provided to the patient prior to transfer of care. Please refer to Dr. Zhou's documentation for further patient workup and care. DIFFERENTIAL DIAGNOSIS: Appendicitis, ovarian cyst, ovarian torsion, ectopic , TOA, PID, infections, diverticulitis, UTI, obstruction, mesenteric ischemia, aortic pathology, inflammatory bowel disease, renal colic, PUD, pancreatitis, biliary pathology, hernia, volvulus, constipation, as well as other pathologies. The chart was completed utilizing [employer] Speech voice recognition software. Grammatical errors, random word insertions, pronoun errors, and incomplete sentences are an occasional consequence of this system due to software limitations, ambient noise, and hardware issues. Any formal questions or concerns about the content, text, or information contained within the body of this dictation should be directly addressed to the physician for clarification. Past Med/Surg History Problem List (Updated 03/25/24 @ 20:16 by SHAR Fernandez) History of small bowel obstruction Exacerbation of Crohn's disease Small bowel obstruction (Acute) Crohn's disease of both small and large intestine (Acute) Encounter for pre-operative examination Abnormal computed tomography of cecum and terminal ileum Acute appendicitis (Acute) Abdominal pain (Acute) Medical History No known health problems Surgical History History of laparoscopic appendectomy (08/17/23) Laparoscopic Appendectomy(Not Applicable) - Jayson Serna, Family History Other No family history of adverse response to anesthesia Social History Smoking Status: Never smoker Second Hand Exposure: No; Do You Dip or Chew Tobacco: No; Hx Alcohol Use: Yes Alcohol type: wine Hx Substance Use: No Preferred Language: Malawian Communication Ability: Effective Commodity Director Required: No Beliefs That Will Affect Care: None Current Living Situation: Other Current Living Situation Comment: Off campus apartment Feels Safe at Home: Yes Assistive Devices: None Allergies Allergies Allergy/AdvReac Type Severity Reaction Status Date / Time No Known Allergies Allergy Verified 03/06/24 09:20 Home Meds Home Medications Medication Instructions Recorded Confirmed acetaminophen 325 mg tablet 650 mg PO QID PRN Pain 08/16/23 03/25/24 (Tylenol) Previous Rx's Medication Instructions Recorded adalimumab 80 mg/0.8 mL See Rx Instructions subcut 03/01/24 subcutaneous pen kit (Humira(CF) .COMPLEX #3 ea Pen Crohn's-[facility] Colitis-Hid Sup Strt) pantoprazole 40 mg tablet,delayed 40 mg PO QAM #30 tabs 03/01/24 release prednisone 10 mg tablet See Rx Instructions PO DAILY #90 03/06/24 tabs Results & Data (ED) Vital Signs Vital Signs - 24 hr 03/25/24 09:36 03/25/24 11:25 03/25/24 11:30 Temperature 36.4 C L Temperature Source Temporal Artery Scan Pulse Rate 111 H 91 H Pulse Rate [Apical] Pulse Rhythm [Apical] Pulse Strength [Apical] Respiratory Rate 18 20 Respiratory Effort / Characteristics Respiratory Depth Respiratory Pattern Blood Pressure 143/101 H Blood Pressure [Left Arm] Blood Pressure Mean 115 Blood Pressure Mean [Left Arm] Blood Pressure Position [Left Arm] Pulse Oximetry 94 100 Oxygen Delivery Method Room Air Room Air Sepsis New/Unexplained Change in Mental Status No Sepsis Action Taken by Nursing No Action Required 03/25/24 11:31 03/25/24 12:01 03/25/24 13:27 Temperature Temperature Source Pulse Rate Pulse Rate [Apical] 90 75 75 Pulse Rhythm [Apical] Regular Regular Regular Pulse Strength [Apical] Normal Normal Normal Respiratory Rate 18 18 18 Respiratory Effort / Characteristics Non-Labored Spontaneous Non-Labored Spontaneous Non-Labored Spontaneous Respiratory Depth Normal Normal Normal Respiratory Pattern Regular Regular Regular Blood Pressure Blood Pressure [Left Arm] 99/81 L 117/74 108/84 Blood Pressure Mean Blood Pressure Mean [Left Arm] 87 88 92 Blood Pressure Position [Left Arm] Lying Lying Lying Pulse Oximetry 99 100 100 Oxygen Delivery Method Room Air Room Air Sepsis New/Unexplained Change in Mental Status Sepsis Action Taken by Skilled Nursing Medications Current Medication List: was personally reviewed by me Laboratory Data Attestation: I reviewed the patient's lab results. 03/25/24 10:30 03/25/24 10:30 Lab Results 03/25/24 03/25/24 03/25/24 Range/Units 10:30 11:12 13:09 WBC 20.27 H (4.8-10.8) K/ul RBC 5.01 (4.20-5.40) M/uL Hgb 13.0 (12.0-16.0) g/dl Hct 39.2 (37.0-47.0) % MCV 78.2 L (80.0-100.0) fL MCH 25.9 (25.0-34.0) pg MCHC 33.2 (32.0-36.0) g/dL RDW Std Deviation 41.0 (36.4-46.3) fL RDW Coeff of Joshua 14.6 H (11.5-14.5) % Plt Count 340 (130-400) K/uL MPV 9.2 L (9.4-12.4) fL Immature Gran % (Auto) 0.7 % Neut % (Auto) 72.5 % Lymph % (Auto) 20.4 % [place] % (Auto) 6.2 % Eos % (Auto) 0.1 % Baso % (Auto) 0.1 % Neut # (Auto) 14.69 H (1.40-6.50) K/uL Lymph # (Auto) 4.13 H (1.20-3.40) K/uL [place] # (Auto) 1.25 H (0.11-0.59) K/uL Eos # (Auto) 0.03 (0.00-0.50) K/uL Baso # (Auto) 0.03 (0.00-0.20) K/uL Immature Gran # (Auto) 0.14 (0.01-0.20) K/uL ESR 9 (0-20) mm/hr Sodium 141 (136-145) mmol/L Potassium 4.7 (3.5-5.1) mmol/L Chloride 100 (98-107) mmol/L Carbon Dioxide 27 (21-32) mmol/L Anion Gap 14 H (3-11) BUN 11 (6-23) mg/dl Creatinine 0.84 (0.6-1.2) mg/dl Est Cr Clr Drug Dosing 79.6 ml/min eGFR 101.33 BUN/Creatinine Ratio 13.1 (10-20) Glucose 105 H (70-99(Fasting)) mg/dl Lactate 2.2 H* 1.8 (0.4-2.0) mmol/L Calcium 10.5 H (8.6-10.3) mg/dl Magnesium 1.9 (1.7-2.4) mg/dl Total Bilirubin 0.5 (0.2-1.0) mg/dl AST 10 L (13-39) U/L ALT 10 (7-52) U/L Alkaline Phosphatase 40 (34-104) U/L C-Reactive Protein < 0.50 (0-0.5) mg/dl Total Protein 7.8 (6.0-8.3) gm/dl Albumin 4.8 (3.4-5.0) gm/dl Globulin 3.0 (2.5-4.0) gm/dl Albumin/Globulin Ratio 1.6 (0.9-2) Lipase 80 (11-82) U/L Procalcitonin < 0.02 (0-0.5) ng/ml HCG, Qual Negative (Negative) Administered Medications Lactated Ringer's (Lr) 1,000 mls @ 90 mls/hr IV .Q11H7M LUCRECIA Stop: 03/26/24 12:28 Last Admin: 03/25/24 14:40 Dose: 90 mls/hr Documented By: Morphine Sulfate (Morphine Sulfate 2 Mg/Ml Carp) 2 mg IV Q3H PRN PRN Reason: Mod/Severe Pain (6-10) on NRS Stop: 04/08/24 18:44 Last Admin: 03/25/24 19:38 Dose: 2 mg Documented By: MRE Discontinued Medications Sodium Chloride (Nss) 1,000 mls @ 999 mls/hr IV .Q1H1M LUCRECIA Stop: 03/25/24 11:00 Last Infusion: 03/25/24 13:10 Dose: Infused Documented By: Admin: 03/25/24 10:33 Dose: 999 mls/hr Documented By: Acetaminophen (Ofirmev) 1,000 mg in 100 mls @ 400 mls/hr IV NOW STA Stop: 03/25/24 10:19 Last Infusion: 03/25/24 11:37 Dose: Infused Documented By: MSJuanito Admin: 03/25/24 10:45 Dose: 400 mls/hr Documented By: MSJuanito Sodium Chloride (Nss) 1,000 mls @ 999 mls/hr IV .Q1H1M ONE Stop: 03/25/24 11:59 Last Infusion: 03/25/24 14:03 Dose: Infused Documented By: Admin: 03/25/24 12:58 Dose: 999 mls/hr Documented By: Piperacillin Sod/Tazobactam Sod (Zosyn) 4.5 gm in 100 mls @ 200 mls/hr IV NOW ONE; Protocol Stop: 03/25/24 12:13 Last Infusion: 03/25/24 13:10 Dose: Infused Documented By: MSJuanito Admin: 03/25/24 11:55 Dose: 200 mls/hr Documented By: Ioversol (Optiray 320 100ml) 94 ml IV ONCE ONE Stop: 03/25/24 11:21 Last Admin: 03/25/24 11:21 Dose: 94 ml Documented By: NIRU Ketorolac Tromethamine (Ketorolac Tromethamine 15 Mg/Ml Vial) 10 mg IV NOW ONE Stop: 03/25/24 09:57 Last Admin: 03/25/24 10:33 Dose: 10 mg Documented By: Methylprednisolone (Methylprednisolone 125 Mg/2 Ml Vial) 40 mg IV NOW STA Stop: 03/25/24 13:31 Last Admin: 03/25/24 13:37 Dose: 40 mg Documented By: G Morphine Sulfate (Morphine Sulfate 2 Mg/Ml Carp) 2 mg IV NOW STA Stop: 03/25/24 10:06 Last Admin: 03/25/24 10:45 Dose: 2 mg Documented By: MSG Morphine Sulfate (Morphine Sulfate 4 Mg/Ml 1 Ml Carp\Vial) 4 mg IV NOW STA Stop: 03/25/24 13:16 Last Admin: 03/25/24 13:31 Dose: 4 mg Documented By: G Ondansetron HCl (Ondansetron Inj 2 Mg/Ml 2 Ml Vial) 4 mg IV NOW STA Stop: 03/25/24 09:57 Last Admin: 03/25/24 10:32 Dose: 4 mg Documented By: Imaging Data Attestation: I personally reviewed and interpreted this imaging study as follows: Radiologist's Impression: Abdomen/Pelvis CT 03/25/24 09:57 CT abd pelvis IV con only CLINICAL HISTORY: Vomiting TECHNIQUE: Helical axial images of the abdomen and pelvis were obtained and displayed. Automated dose lowering techniques and/or adjustment according to patient size were utilized for this exam. This exam was performed with intravenous contrast. CT DOSE: 326.42 mGy.cm COMPARISON: Comparison is made to CT abdomen pelvis 02/28/2024 FINDINGS: Lower chest: No acute abnormality. Liver: Unremarkable. No focal lesions are seen. Gallbladder and biliary tree: No calcified gallstones. Normal caliber wall. No intra- or extrahepatic biliary ductal dilation. Pancreas: Unremarkable, no focal lesions. Spleen: Unremarkable. Adrenals: Unremarkable. Kidneys and ureters: Unremarkable. Bladder: Unremarkable. Reproductive organs: Unremarkable. Bowel: Focal thickening is seen in the ascending colon with surrounding fat stranding. Redemonstration of adjacent appendiceal stump. Again noted is fecalization of multiple loops of terminal ileum. Lymph nodes Retroperitoneal: Unremarkable. Pelvic: Unremarkable. Mesenteric: 4 mm right lower quadrant node previously measured 7 mm. Peritoneum: A small amount of fat stranding and pelvic fluid is seen. Vessels: Unremarkable. Abdominal wall: Unremarkable. Bones: Unremarkable. IMPRESSION: Again noted is thickening and luminal narrowing of the ascending colon. There is surrounding fat stranding and dilation of fecaliation of the distal ileum. Findings may represent continued inflammation/stricturing in this patient with a history of Crohn's disease. Malignancy is considered less likely given the interval decrease in size of adjacent lymph node. ACT 112: Negative or not required by law. Electronically signed by: Yusuf Kirby M.D. 03/25/2024 12:06 PM Discharge Plan Visit Data Chief Complaint: GI Assessment Stated Complaint: POSSIBLE CROHN'S FLARE/THROWING UP ED Provider: Zane Dexter ED Midlevel Provider: Vashti Mcclain Discharge Problem: Crohn's disease of both small and large intestine, Abdominal pain Patient Disposition: Admitted As Inpatient Discharge Instructions Interventions: ED Discharge Assessment Last Done: 03/25/24 18:45 Discharge Problem: Crohn's disease of both small and large intestine Qualifiers: Digestive disease complication type: unspecified complication Qualified Code(s): K50.819 - Crohn's disease of both small and large intestine with unspecified complications Abdominal pain Qualifiers: Abdominal location: lower abdomen, unspecified Qualified Code(s): R10.30 - Lower abdominal pain, unspecified
[2024-03-25] MEDS: ONDANSETRON INJ 2 MG/ML 2 ML VIAL IV STA (10:32)
[2024-03-25] MEDS: KETOROLAC TROMETHAMINE 15 MG/ML VIAL IV ONE (10:33)
[2024-03-25] MEDS: SODIUM CHLORIDE 0.9% 1,000 ML IV SCH (10:33)
[2024-03-25] MEDS: ACETAMINOPHEN 1,000 MG/100 ML VIAL IV STA (10:45)
[2024-03-25] MEDS: MoRPHine SULFATE 2 MG/ML CARP IV STA (10:45)
[2024-03-25 10:55] LABS: Basophils # (auto) 0.03 K/uL (0.00-0.20); Basophils % (auto) 0.1 %; Eosinophils # (auto) 0.03 K/uL (0.00-0.50); Eosinophils % (auto) 0.1 %; Hematocrit (blood only) 39.2 % (37.0-47.0); Immature Granulocytes # (auto) 0.14 K/uL (0.01-0.20); Immature Granulocytes % (auto) 0.7 %; Lymphocytes # (auto) 4.13 K/uL (1.20-3.40); Lymphocytes % (auto) 20.4 %; Mean Corpuscular Hemoglobin 25.9 pg (25.0-34.0); Mean Corpuscular Hgb Conc 33.2 g/dL (32.0-36.0); Mean Corpuscular Volume 78.2 fL (80.0-100.0); Mean Platelet Volume 9.2 fL (9.4-12.4); Monocytes # (auto) 1.25 K/uL (0.11-0.59); Monocytes % (auto) 6.2 %; Neutrophils # (auto) 14.69 K/uL (1.40-6.50); Neutrophils % (auto) 72.5 %; Platelet Count 340 K/uL (130-400); RDW Coefficient of Variation 14.6 % (11.5-14.5); Red Blood Count 5.01 M/uL (4.20-5.40); White Blood Count 20.27 K/ul (4.8-10.8)
[2024-03-25 11:10] LABS: Alanine Aminotransferase 10 U/L (7-52); Albumin Globulin Ratio 1.6 (0.9-2); Albumin Level 4.8 gm/dl (3.4-5.0); Alkaline Phosphatase 40 U/L (34-104); Anion Gap 14 (3-11); Aspartate Aminotransferase 10 U/L (13-39); BUN Creatinine Ratio 13.1 (10-20); Bilirubin,Total 0.5 mg/dl (0.2-1.0); Blood Urea Nitrogen 11 mg/dl (6-23); Calcium 10.5 mg/dl (8.6-10.3); Carbon Dioxide 27 mmol/L (21-32); Chloride 100 mmol/L (98-107); Creatinine Clr Calc Pharmacy 79.6 ml/min; Glucose 105 mg/dl (70-99(Fasting)); Lipase 80 U/L (11-82); Potassium 4.7 mmol/L (3.5-5.1); Pregnancy Test, Serum Negative (Negative); Sodium 141 mmol/L (136-145); Total Protein 7.8 gm/dl (6.0-8.3)
[2024-03-25] MEDS: OPTIRAY 320 100ml IV ONE (11:21)
[2024-03-25] MEDS: PIPERACILLIN/TAZOBACTAM 4.5 GM/100 ML BAG IV ONE (11:55)
--- NOTE | 2024-03-25 12:08 | CT Scan Report ---
CT abd pelvis IV con only CLINICAL HISTORY: Vomiting TECHNIQUE: Helical axial images of the abdomen and pelvis were obtained and displayed. Automated dose lowering techniques and/or adjustment according to patient size were utilized for this exam. This e xam was performed with intravenous contrast. CT DOSE: 326.42 mGy.cm COMPARISON: Comparison is made to CT abdomen pelvis 02/28/2024 FINDINGS: Lower chest: No acute abnormality. Liver: Unremarkable. No focal lesions are seen. Gallbladder and biliary tree: No calcified gallstones. Normal caliber wall. No intra- or extrahepatic biliary ductal dilation. Pancreas: Unremarkable, no focal lesions. Spleen: Unremarkable. Adrenals: Unremarkable. Kidneys and ureters: Unremarkable. Bladder: Unremarkable. Reproductive organs: Unremarkable. Bowel: Focal thickening is seen in the ascending colon with surrounding fat stranding. Redemonstratio n of adjacent appendiceal stump. Again noted is fecalization of multiple loops of terminal ileum. Lymph nodes Retroperitoneal: Unremarkable. Pelvic: Unremarkable. Mesenteric: 4 mm right lower quadrant node previously measured 7 mm. Peritoneum: A small amount of fat stranding and pelvic fluid is seen. Vessels: Unremarkable. Abdominal wall: Unremarkable. Bones: Unremarkable. IMPRESSION: Again noted is thickening and luminal narrowing of the ascending colon. There is surrounding fat stra nding and dilation of fecaliation of the distal ileum. Findings may represent continued inflammation/ stricturing in this patient with a history of Crohn's disease. Malignancy is considered less likely g iven the interval decrease in size of adjacent lymph node. ACT 112: Negative or not required by law. Electronically signed by: Yusuf Kirby M.D. 03/25/2024 12:06 PM
[2024-03-25] MEDS: SODIUM CHLORIDE 0.9% 1,000 ML IV ONE (12:58)
[2024-03-25] MEDS: MoRPHine SULFATE 4 MG/ML 1 ML CARP\\VIAL IV STA (13:31)
--- NOTE | 2024-03-25 13:36 | History & Physical Report ---
Date of Service March 25, 2024 Assessment & Plan (1) Exacerbation of Crohn's disease: Plan: Acute onset of abdominal pain/nausea/vomiting on the morning of 03/25 around 0400 Recent [place] admission for SBO Leukocytosis at 20.27 (in the setting of steroid taper); afebrile Zosyn 4.5 g IV x 1 in the ED; will defer further antibiotics at this time A/P CT on arrival revealed continued inflammation/stricturing of the ascending colon Solu-Medrol 20 mg IV q8h IV acetaminophen and morphine as needed for pain IV antiemetics Gastroenterology consult appreciated A.m. CBC, BMP, CRP (2) History of small bowel obstruction: Plan: While SBO was not revealed on imaging, patient is at high risk for recurrence given recent SBO Pantoprazole 40 mg p.o. --> IV daily N.p.o. for now IVF maintenance with LR at 90mL/hr x 2 L (3) Crohn's disease of both small and large intestine: Plan: Continue Humira Plan Disposition: Admit to [facility] Full code N.p.o. for now, with plan to advance to clear liquid diet as tolerated VTE PPx: Low risk, encourage ambulation History of Present Illness Chief Complaint: GI Assessment Primary Care Provider: [facility] Karen is a 23-year-old female with PMH of Crohn's disease, SBO, and appendicitis. She presented for acute onset of abdominal pain/nausea/vomiting that began at 0400 on 03/25. Recent [place] admission for small bowel obstruction, and patient reports that her pain feels similar to prior. She was having small bouts of pain yesterday in the right lower quadrant, but did not have severe pain until it woke her from sleep overnight. Pain is located in her lower quadrants bilaterally. She rates the pain 8/10 at worst, 4/10 at present after receiving pain medicine in the ED. She characterizes the pain as a sharp, stabbing pain that comes on intermittently. Radiation to the lower back. She did not take any pain medicine prior to coming in. She cannot identify any alleviating or exacerbating symptoms. Patient did not take her regular morning medications today; she is still taking her steroid taper since discharge. Patient was also started on Humira recently on 03/08, last dose was on Monday. She reports no recent change in diet; is still eating a low fiber diet. Last BM was this morning at 7 AM (hard, formed stool; constipation). No diarrhea. No blood in the stool. She does note that she has had nausea and some vomiting throughout the week. She then had nausea and vomiting this morning, and reports that she felt "feverish" after she vomited. 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 She denies smoking, tobacco use, recent alcohol use. She denies chance of ; LMP was last week. Patient's vitals are stable at time of admission. ED course: NSS 1000 mL IV x 2 Zofran 4 mg IV Toradol 10 mg IV Acetaminophen 1000 mg IV Morphine 6 mg IV Zosyn 4.5 g IV Solu-Medrol 40 mg IV ROS: Patient endorses feeling feverish (after vomiting this morning; resolved; did not take temp at home), lightheadedness, CULVER (which patient attributes to Humira), intermittent chest palpitations (which patient attributes to prednisone), chest pressure/tightness (which patient attributes to morphine), dry cough, low/transverse abdominal pain, nausea, vomiting, and constipation. Patient denies chills, night-sweats, chest pain, SOB, hematemesis, diarrhea, change in urinary/bowel habits, blood in stool/urine, or burning with urination. Allergies Allergy/AdvReac Type Severity Reaction Status Date / Time No Known Allergies Allergy Verified 03/06/24 09:20 Home Medications Medication Instructions Recorded Confirmed Type acetaminophen 325 mg tablet 650 mg PO QID PRN Pain 08/16/23 03/25/24 History (Tylenol) pantoprazole 40 mg tablet,delayed 40 mg PO QAM #30 tabs 03/01/24 03/25/24 Rx release prednisone 10 mg tablet See Rx Instructions PO DAILY #90 03/06/24 03/25/24 Rx tabs adalimumab 40 mg/0.4 mL See Rx Instructions subcut 03/26/24 Rx subcutaneous pen kit (Humira(CF) .COMPLEX #2 ea Pen) Past Med/Surg History Problem List (Updated 03/26/24 @ 11:39 by Liane Luna PA-C) Chest pain History of small bowel obstruction Exacerbation of Crohn's disease Small bowel obstruction (Acute) Crohn's disease of both small and large intestine (Acute) Encounter for pre-operative examination Abnormal computed tomography of cecum and terminal ileum Acute appendicitis (Acute) Abdominal pain (Acute) Medical History No known health problems Surgical History History of laparoscopic appendectomy (08/17/23) Laparoscopic Appendectomy(Not Applicable) - Jayson Serna, Family History Other No family history of adverse response to anesthesia Social History Smoking Status: Never smoker Second Hand Exposure: No; Do You Dip or Chew Tobacco: No; Hx Alcohol Use: Yes Alcohol type: wine Hx Substance Use: No Preferred Language: Montserratian Communication Ability: Effective Sexual Assault Social Worker Required: No Beliefs That Will Affect Care: None Current Living Situation: Other Current Living Situation Comment: Off campus [facility] housing Other Information That Helps Us Care for You: No Feels Safe at Home: Yes Safety Concerns: Feels Safe At This Time Assistive Devices: None Review of Systems Review of Systems: See HPI above Physical Exam Physical Exam: General: Moderate physical distress secondary to abdominal pain; non-toxic appearing; well-nourished; cooperative; SpO2 100 send on RA HEENT: normocephalic, atraumatic; no scleral icterus; PERRLA; vision and hearing grossly intact Neck: supple; no lymphadenopathy; trachea midline Skin: warm, dry without signs of tenting; no cyanosis; no rashes, bruising, lesions, or erythema noted CV: chest wall NTP; RRR; S1/S2 normal; no murmurs/rubs/gallops; pulses intact and symmetric at radial, DP, and PT Lungs: no acute respiratory distress; symmetrical chest wall expansion; clear breath sounds across all lung ramsey w/o adventitious sounds; no wheezing ABD: Soft; no signs of rashes, bruising on the abdomen or flanks; mildly TTP in the lower transverse quadrants bilaterally; RUQ and LUQ are NTP; BS present; no rebound/guarding; no distention MSK: no tics or fasciculations; no edema noted in the LEs b/l, nonerythematous Neuro: A&Ox3; normal mood and affect; fluent speech; no focal deficits; sensation grossly intact in the LEs b/l Results & Data Results & Data Vital Signs (Past 12 Hours) Vital Signs Temp Pulse Pulse Resp BP BP Pulse Ox 03/25/24 13:27 75 18 108/84 100 03/25/24 12:01 75 18 117/74 100 03/25/24 11:31 90 18 99/81 L 99 03/25/24 11:30 91 H 03/25/24 11:25 20 100 03/25/24 09:36 36.4 C L 111 H 18 143/101 H 94 O2 Del Method 03/25/24 13:27 03/25/24 12:01 Room Air 03/25/24 11:31 Room Air 03/25/24 11:30 03/25/24 11:25 Room Air 03/25/24 09:36 Room Air Laboratory Results Abnormal lab results 03/25/24 03/25/24 Range/Units 10:30 11:12 WBC 20.27 H (4.8-10.8) K/ul MCV 78.2 L (80.0-100.0) fL RDW Coeff of Joshua 14.6 H (11.5-14.5) % MPV 9.2 L (9.4-12.4) fL Neut # (Auto) 14.69 H (1.40-6.50) K/uL Lymph # (Auto) 4.13 H (1.20-3.40) K/uL Isabella # (Auto) 1.25 H (0.11-0.59) K/uL Anion Gap 14 H (3-11) Glucose 105 H (70-99(Fasting)) mg/dl Lactate 2.2 H* (0.4-2.0) mmol/L Calcium 10.5 H (8.6-10.3) mg/dl AST 10 L (13-39) U/L Diagnostic Findings Abdomen/Pelvis CT 03/25/24 09:57 CT abd pelvis IV con only CLINICAL HISTORY: Vomiting TECHNIQUE: Helical axial images of the abdomen and pelvis were obtained and displayed. Automated dose lowering techniques and/or adjustment according to patient size were utilized for this exam. This exam was performed with int ravenous contrast. CT DOSE: 326.42 mGy.cm COMPARISON: Comparison is made to CT abdomen pelvis 02/28/2024 FINDINGS: Lower chest: No acute abnormality. Liver: Unremarkable. No focal lesions are seen. Gallbladder and biliary tree: No calcified gallstones. Normal caliber wall. No intra- or extrahepatic biliary ductal dilation. Pancreas: Unremarkable, no focal lesions. Spleen: Unremarkable. Adrenals: Unremarkable. Kidneys and ureters: Unremarkable. Bladder: Unremarkable. Reproductive organs: Unremarkable. Bowel: Focal thickening is seen in the ascending colon with surrounding fat stranding. Redemonstration of adjacent appendiceal stump. Again noted is fecalization of multiple loops of terminal ileum. Lymph nodes Retroperitoneal: Unremarkable. Pelvic: Unremarkable. Mesenteric: 4 mm right lower quadrant node previously measured 7 mm. Peritoneum: A small amount of fat stranding and pelvic fluid is seen. Vessels: Unremarkable. Abdominal wall: Unremarkable. Bones: Unremarkable. IMPRESSION: Again noted is thickening and luminal narrowing of the ascending colon. There is surrounding fat stranding and dilation of fecaliation of the distal ileum. Findings may represent continued inflammation/stricturing in this patient with a history of Crohn's disease. Malignancy is considered less likely given the interval decrease in size of adjacent lymph node. ACT 112: Negative or not required by law. Electronically signed by: Yusuf Kirby M.D. 03/25/2024 12:06 PM ECG Additional Comments: EKG ordered, pending Code Status & VTE Plan Code Status Full code VTE Prophylaxis Plan VTE Prophylaxis will be ordered: Yes Supervising Physician Co-Signing Physician Notes I personally saw and examined the patient. I independently reviewed the labs, EKG, imaging, problem list, medication list, past medical history and family history. I verified all canseco points and agree with Rikki Bruno PA-C with the following exceptions and/or additions: 23 year old female with Crohn's disease presents to the ER with abdominal pain. Similar symptoms previously in February with SBO at that time. On this occasion no SBO present. O/E HS RRR, no murmurs, Chest CTAB, generalized abdominal tenderness with guarding worse on lower abdomen A/P Crohn's flare - Solu-medrol 20mg IV q8h, NPO, IV fluids, consult gastroenterology PG Care Time/CCT Total # of Minutes Spent Total Time Spent with Patient: Total time spent is greater than 50% in coordination of care (as documented) at patient's floor/unit and/or counseling patient: Coding [place] [address] INT INP/OBS CARE MIN Patient Type Established Medical Decision Making High Complexity Diagnoses Exacerbation of Crohn's disease K50.90 History of small bowel obstruction Z87.19 Crohn's disease of both small and large intestine with intestinal obstruction K50.812 Digestive disease complication type: with intestinal obstruction (3) Crohn's disease of both small and large intestine Digestive disease complication type: with intestinal obstruction Qualified Code(s): K50.812 - Crohn's disease of both small and large intestine with intestinal obstruction
[2024-03-25] MEDS: methylPREDNISolone 125 MG/2 ML VIAL IV STA (13:37)
--- NOTE | 2024-03-25 14:21 | Gastrointestinal Consultation ---
<Statement entered by Nelson Martel MD - 03/25/24 16:27> Patient seen and examined. Case discussed with Adrienne MYLES. Flare of Crohn's just completed induction with Humira. Still too early to determine if Humira will ultimately be effective or not so would decrease inflammation again with steroids and keep her OP dose of Humira and can soon test trough and antibody levels. Date of Consultation March 25, 2024 Assessment & Plan (1) History of small bowel obstruction: 23 year old female with Crohn's disease diagnosed on colonoscopy in September 2023, recent admission for small bowel obstruction extending to the ileocecal junction w/ adjacent inflammatory change, just completed her Humira induction who presented for evaluation of worsening abd pain associated with an episode of nausea/vomiting and chills CT w/ thickening and luminal narrowing of the ascending colon and fat stranding and dilation of fecalization of the distal ileum concerning for continued inflammation/stricturing NPO for bowel rest Check CRP/ESR Daily labs Continue humira - This will need to be brought to the hospital and verified by a pharmacist if next dose is due during admission Check stool studies if develops diarrhea Agree w/ IV steroids - Methylpred 20 q8h - Will need a slow tapering course at discharge - Prednisone 40 mg daily for 2 weeks - Prednisone 30 mg daily for 1 week - Prednisone 20 mg daily for 1 week - Prednisone 10 mg daily for 1 week - Prednisone 5 mg daily for 1 week then stop I spent a total of 60 minutes on the date of service in review of patient's record, and previously obtained information in person and appropriate medical visit, discussion and education of plan, with patient and/or caregiver, placing orders for tests/referral/procedures as medically necessary and documentation of pertinent clinical information in patient's medical records for their visit today. (2) Exacerbation of Crohn's disease: History of Present Illness Reason for Consultation: Crohn's flare Requesting Physician: Dr. Zhou Attending Physician: Dr. Zhou History of Present Illness 23 year old female with Crohn's disease diagnosed on colonoscopy in September 2023, recent admission for small bowel obstruction extending to the ileocecal junction w/ adjacent inflammatory change, just completed her Humira induction who presented for evaluation of worsening abd pain associated with an episode of nausea/vomiting and chills. She had a small volume, formed BM around the time of onset of these symptoms. Denies diarrhea. No report of black or bloody stools. No fever, chills, CP, SOB. IBD Summary: crohn's - Onset of symptoms: 2023 - Date of diagnosis: 2023 - Disease Location: ascending colon - IBD surgical hx: none, history of SBO 02/2024, resolved without surgical intervention - 5-ASA used: none - TNF used: humira CTAP 2023: Again noted is thickening and luminal narrowing of the ascending colon. There is surrounding fat stranding and dilation of fecaliation of the distal ileum. Findings may represent continued inflammation/stricturing in this patient with a history of Crohn's disease. Malignancy is considered less likely given the interval decrease in size of adjacent lymph node. CTAP 2023: Small bowel obstruction extending to the ileocecal junction dilatation of distal ileal loops measuring up to 3.4 cm. Fecalization of multiple distal ileal loops extending to the ileocecal junction implies stasis. Adjacent inflammatory change noted which may be reactive in nature. Concurrent inflammatory bowel disease is also possible. Consider MR enterography if there is further concern. No evidence of pneumatosis, portal venous gas, or free air.Mild mesenteric ascites which may be reactive in nature. No other acute findings. MRE 2023: Focal region of thickened, aperistaltic bowel in the proximal ascending colon compatible with findings of Crohn's disease. Colonoscopy 2023: - Preparation of the colon was fair. - Diffuse severe inflammation was found in the ascending colon secondary to colitis. Biopsied. Tattooed. - Biopsies were taken with a cold forceps for histology in the entire colon. Allergies Allergy/AdvReac Type Severity Reaction Status Date / Time No Known Allergies Allergy Verified 03/06/24 09:20 Home Medications Medication Instructions Recorded Confirmed Type acetaminophen 325 mg tablet 650 mg PO QID PRN Pain 08/16/23 03/25/24 History (Tylenol) adalimumab 80 mg/0.8 mL See Rx Instructions subcut 03/01/24 03/25/24 Rx subcutaneous pen kit (Humira(CF) .COMPLEX #3 ea Pen [facility]'s[facility] Colitis-Hid Sup Strt) pantoprazole 40 mg tablet,delayed 40 mg PO QAM #30 tabs 03/01/24 03/25/24 Rx release prednisone 10 mg tablet See Rx Instructions PO DAILY #90 03/06/24 03/25/24 Rx tabs Patient History Medical History No known health problems Surgical History History of laparoscopic appendectomy (08/17/23) Laparoscopic Appendectomy(Not Applicable) - Jayson Serna DO Family History Other No family history of adverse response to anesthesia Social History Smoking Status: Never smoker Second Hand Exposure: No; Do You Dip or Chew Tobacco: No; Hx Alcohol Use: Yes Alcohol type: wine Hx Substance Use: No Preferred Language: Armenian Communication Ability: Effective Licensed Optician Required: No Beliefs That Will Affect Care: None Current Living Situation: Other Current Living Situation Comment: Off campus apartment Feels Safe at Home: Yes Assistive Devices: None Review of Systems Review of Systems: All other findings negative except as noted in HPI. Physical Exam Constitutional: WD/WN, vitals as above Respiratory: normal respiratory effort, lungs clear to auscultation Cardiovascular: Rate/Rhythm: regular rate and regular rhythm Gastrointestinal (Abdomen): Inspection/Auscultation: abdomen normal to inspection and normal bowel sounds Percussion/Palpation: + abdomen tender and abdomen soft; no guarding and abdomen not rigid Skin: no rashes, warm and dry Results & Data Vital Signs (Past 12 Hours) Vital Signs Temp Pulse Pulse Resp BP BP Pulse Ox 03/25/24 13:27 75 18 108/84 100 03/25/24 12:01 75 18 117/74 100 03/25/24 11:31 90 18 99/81 L 99 03/25/24 11:30 91 H 03/25/24 11:25 20 100 03/25/24 09:36 36.4 C L 111 H 18 143/101 H 94 O2 Del Method 03/25/24 13:27 03/25/24 12:01 Room Air 03/25/24 11:31 Room Air 03/25/24 11:30 03/25/24 11:25 Room Air 03/25/24 09:36 Room Air Laboratory Results 03/25/24 03/25/24 03/25/24 Range/Units 13:09 11:12 10:30 WBC 20.27 H (4.8-10.8) K/ul RBC 5.01 (4.20-5.40) M/uL Hgb 13.0 (12.0-16.0) g/dl Hct 39.2 (37.0-47.0) % MCV 78.2 L (80.0-100.0) fL MCH 25.9 (25.0-34.0) pg MCHC 33.2 (32.0-36.0) g/dL RDW Std Deviation 41.0 (36.4-46.3) fL RDW Coeff of Joshua 14.6 H (11.5-14.5) % Plt Count 340 (130-400) K/uL MPV 9.2 L (9.4-12.4) fL Immature Gran % (Auto) 0.7 % Neut % (Auto) 72.5 % Lymph % (Auto) 20.4 % Jerome % (Auto) 6.2 % Eos % (Auto) 0.1 % Baso % (Auto) 0.1 % Neut # (Auto) 14.69 H (1.40-6.50) K/uL Lymph # (Auto) 4.13 H (1.20-3.40) K/uL Jerome # (Auto) 1.25 H (0.11-0.59) K/uL Eos # (Auto) 0.03 (0.00-0.50) K/uL Baso # (Auto) 0.03 (0.00-0.20) K/uL Immature Gran # (Auto) 0.14 (0.01-0.20) K/uL Sodium 141 (136-145) mmol/L Potassium 4.7 (3.5-5.1) mmol/L Chloride 100 (98-107) mmol/L Carbon Dioxide 27 (21-32) mmol/L Anion Gap 14 H (3-11) BUN 11 (6-23) mg/dl Creatinine 0.84 (0.6-1.2) mg/dl Est Cr Clr Drug Dosing 79.6 ml/min eGFR 101.33 BUN/Creatinine Ratio 13.1 (10-20) Glucose 105 H (70-99(Fasting)) mg/dl Lactate 1.8 2.2 H* (0.4-2.0) mmol/L Calcium 10.5 H (8.6-10.3) mg/dl Total Bilirubin 0.5 (0.2-1.0) mg/dl AST 10 L (13-39) U/L ALT 10 (7-52) U/L Alkaline Phosphatase 40 (34-104) U/L Total Protein 7.8 (6.0-8.3) gm/dl Albumin 4.8 (3.4-5.0) gm/dl Globulin 3.0 (2.5-4.0) gm/dl Albumin/Globulin Ratio 1.6 (0.9-2) Lipase 80 (11-82) U/L Procalcitonin < 0.02 (0-0.5) ng/ml HCG, Qual Negative (Negative) PG Care Time/CCT Total # of Minutes Spent Total Time Spent with Patient: Total time spent is greater than 50% in coordination of care (as documented) at patient's floor/unit and/or counseling patient: Coding Level of Care Code 20916 IN/OBS CONSULT LVL 4,60M Diagnoses History of small bowel obstruction Z87.19 Exacerbation of Crohn's disease without complication K50.90 Digestive disease complication type: without complication (2) Exacerbation of Crohn's disease Digestive disease complication type: without complication Qualified Code(s): K50.90 - Crohn's disease, unspecified, without complications
[2024-03-25] MEDS: LACTATED RINGER'S 1,000 ML IV SCH (14:40)
[2024-03-25 14:46] LABS: C Reactive Protein < 0.50 mg/dl (0-0.5); Magnesium 1.9 mg/dl (1.7-2.4)
[2024-03-25 15:08] LABS: Appearance Urine Turbid (Clear); Bacteria Urine Automated None Seen (None Seen); Bilirubin Urine Negative (Negative); Blood Urine Negative (Negative); Cast Urine Automated 0-2 /lpf (0-2); Color Urine Yellow; Epithelial Cell Urine Auto 0-2 /hpf (0-2); Glucose Urine UA Negative (Negative); Ketones Urine Negative (Negative); Leukocyte Esterase Urine Negative (Negative); Nitrite Urine Negative (Negative); Protein Urine Negative (Negative); RBC Urine Automated 0-2 /hpf (0-2); Specific Gravity Urine 1.042 (1.000-1.030); Urobilinogen Urine Negative (Negative); WBC Urine Automated 0-5 /hpf (0-5)
[2024-03-25] MEDS ORDERED: ACETAMINOPHEN 1,000 MG/100 ML VIAL IV PRN (18:45)
[2024-03-25] MEDS: MoRPHine SULFATE 2 MG/ML CARP IV PRN (19:38)
[2024-03-25] MEDS ORDERED: methylPREDNISolone 125 MG/2 ML VIAL IV SCH (21:00)
[2024-03-25] MEDS: methylPREDNISolone 20 MG in SYRINGE 0 ML IV SCH (21:48)
[2024-03-25] MEDS: ACETAMINOPHEN 1,000 MG/100 ML VIAL IV SCH (21:48)
[2024-03-26] MEDS: ONDANSETRON INJ 2 MG/ML 2 ML VIAL IV PRN (04:14)
[2024-03-26 06:58] LABS: Hematocrit (blood only) 32.5 % (37.0-47.0); Hemoglobin 10.7 g/dl (12.0-16.0); Mean Corpuscular Hgb Conc 32.9 g/dL (32.0-36.0); Mean Corpuscular Volume 78.9 fL (80.0-100.0); Mean Platelet Volume 9.4 fL (9.4-12.4); Platelet Count 279 K/uL (130-400); RDW Coefficient of Variation 14.7 % (11.5-14.5); RDW Standard Deviation 42.1 fL (36.4-46.3); Red Blood Count 4.12 M/uL (4.20-5.40); White Blood Count 15.28 K/ul (4.8-10.8)
[2024-03-26 07:08] LABS: BUN Creatinine Ratio 11.8 (10-20); C Reactive Protein 1.61 mg/dl (0-0.5); Calcium 9.2 mg/dl (8.6-10.3); Creatinine Clr Calc Pharmacy 98.8 ml/min; Potassium 4.2 mmol/L (3.5-5.1)
[2024-03-26 07:43] LABS: Basophils # (auto) 0.02 K/uL (0.00-0.20); Basophils % (auto) 0.1 %; Immature Granulocytes # (auto) 0.07 K/uL (0.01-0.20); Immature Granulocytes % (auto) 0.5 %; Lymphocytes # (auto) 1.12 K/uL (1.20-3.40); Lymphocytes % (auto) 7.3 %; Monocytes # (auto) 0.31 K/uL (0.11-0.59); Neutrophils # (auto) 13.76 K/uL (1.40-6.50); Neutrophils % (auto) 90.1 %; Ovalocytes 1+; Polychromasia 1+
--- NOTE | 2024-03-26 09:25 | Gastroenterology Progress Note ---
<Statement entered by Nelson Martel MD - 03/26/24 15:33> Patient seen and examined. Case discussed with Adrienne MYLES. Crohn's exacerbation and now constipation. Continue steroids. Gentle laxative and observe. Trial of liquids and advance as tolerated to soft eventually. Date of Service March 26, 2024 Assessment & Plan (1) History of small bowel obstruction: Plan: 23 year old female with Crohn's disease diagnosed on colonoscopy in September 2023, recent admission for small bowel obstruction extending to the ileocecal junction w/ adjacent inflammatory change, just completed her Humira induction who presented for evaluation of worsening abd pain associated with an episode of nausea/vomiting and chills CT w/ thickening and luminal narrowing of the ascending colon and fat stranding and dilation of fecalization of the distal ileum concerning for continued inflammation/stricturing. Has had persistent pain, emesis x 1 this AM. Ice chips and sips KUB this AM Daily labs Continue humira - This will need to be brought to the hospital and verified by a pharmacist if next dose is due during admission Check stool studies if develops diarrhea Agree w/ IV steroids - Methylpred 20 q8h - Will need a slow tapering course at discharge - Prednisone 40 mg daily for 2 weeks - Prednisone 30 mg daily for 1 week - Prednisone 20 mg daily for 1 week - Prednisone 10 mg daily for 1 week - Prednisone 5 mg daily for 1 week then stop I spent a total of 40 minutes on the date of service in review of patient's record, and previously obtained information in person and appropriate medical visit, discussion and education of plan, with patient and/or caregiver, placing orders for tests/referral/procedures as medically necessary and documentation of pertinent clinical information in patient's medical records for their visit today. Admission and Anticipated Discharge Date Admission Date: March 25, 2024 Subjective Pt was seen and evaluated, chart reviewed. Had some worsening abd pain this AM. Vomited x 1 Burping, passing gas last evening, but no BMs today. Father is at bedside - raises questions about being evaluated by an IBD center. Stated we were happy to arrange this if it was their request. Review of Systems Review of Systems: All other findings negative except as noted in HPI. Physical Exam Constitutional: WD/WN, vitals as above Respiratory: normal respiratory effort, lungs clear to auscultation Cardiovascular: RRR, no murmur, no edema Gastrointestinal (Abdomen): normal bowel sounds, soft, nontender, no hepatosplenomegaly Skin: no rashes, warm and dry Results & Data Results & Data Vital Signs (Past 12 Hours) Vital Signs Temp Pulse Resp BP Pulse Ox O2 Del Method 03/26/24 07:09 36.9 C 76 14 98/57 L 99 Room Air 03/25/24 22:07 Room Air Laboratory Results 03/26/24 03/25/24 03/25/24 Range/Units 06:16 14:45 13:09 WBC 15.28 H (4.8-10.8) K/ul RBC 4.12 L (4.20-5.40) M/uL Hgb 10.7 L (12.0-16.0) g/dl Hct 32.5 L (37.0-47.0) % MCV 78.9 L (80.0-100.0) fL MCH 26.0 (25.0-34.0) pg MCHC 32.9 (32.0-36.0) g/dL RDW Std Deviation 42.1 (36.4-46.3) fL RDW Coeff of Joshua 14.7 H (11.5-14.5) % Plt Count 279 (130-400) K/uL MPV 9.4 (9.4-12.4) fL Immature Gran % (Auto) 0.5 % Neut % (Auto) 90.1 % Lymph % (Auto) 7.3 % Miner % (Auto) 2.0 % Eos % (Auto) 0.0 % Baso % (Auto) 0.1 % Neut # (Auto) 13.76 H (1.40-6.50) K/uL Lymph # (Auto) 1.12 L (1.20-3.40) K/uL Miner # (Auto) 0.31 (0.11-0.59) K/uL Eos # (Auto) 0.00 (0.00-0.50) K/uL Baso # (Auto) 0.02 (0.00-0.20) K/uL Immature Gran # (Auto) 0.07 (0.01-0.20) K/uL Polychromasia 1+ Ovalocytes 1+ ESR (0-20) mm/hr Sodium 137 (136-145) mmol/L Potassium 4.2 (3.5-5.1) mmol/L Chloride 103 (98-107) mmol/L Carbon Dioxide 27 (21-32) mmol/L Anion Gap 7 (3-11) BUN 8 (6-23) mg/dl Creatinine 0.68 (0.6-1.2) mg/dl Est Cr Clr Drug Dosing 98.8 ml/min eGFR 126.99 BUN/Creatinine Ratio 11.8 (10-20) Glucose 104 H (70-99(Fasting)) mg/dl Lactate 1.8 (0.4-2.0) mmol/L Calcium 9.2 (8.6-10.3) mg/dl Magnesium (1.7-2.4) mg/dl Total Bilirubin (0.2-1.0) mg/dl AST (13-39) U/L ALT (7-52) U/L Alkaline Phosphatase (34-104) U/L C-Reactive Protein 1.61 H (0-0.5) mg/dl Total Protein (6.0-8.3) gm/dl Albumin (3.4-5.0) gm/dl Globulin (2.5-4.0) gm/dl Albumin/Globulin Ratio (0.9-2) Lipase (11-82) U/L Procalcitonin (0-0.5) ng/ml HCG, Qual (Negative) Urine Color Yellow Urine Appearance Turbid A (Clear) Urine pH 8.0 H (4.5-7.5) Ur Specific [place] 1.042 H (1.000-1.030) Urine Protein Negative (Negative) Urine Glucose (UA) Negative (Negative) Urine Ketones Negative (Negative) Urine Blood Negative (Negative) Urine Nitrite Negative (Negative) Urine Bilirubin Negative (Negative) Urine Urobilinogen Negative (Negative) Ur Leukocyte Esterase Negative (Negative) Urine WBC (Auto) 0-5 (0-5) /hpf Urine RBC (Auto) 0-2 (0-2) /hpf U Hyaline Cast (Auto) 0-2 (0-2) /lpf U Epithel Cells (Auto) 0-2 (0-2) /hpf Urine Bacteria (Auto) None Seen (None Seen) 03/25/24 03/25/24 Range/Units 11:12 10:30 WBC 20.27 H (4.8-10.8) K/ul RBC 5.01 (4.20-5.40) M/uL Hgb 13.0 (12.0-16.0) g/dl Hct 39.2 (37.0-47.0) % MCV 78.2 L (80.0-100.0) fL MCH 25.9 (25.0-34.0) pg MCHC 33.2 (32.0-36.0) g/dL RDW Std Deviation 41.0 (36.4-46.3) fL RDW Coeff of Joshua 14.6 H (11.5-14.5) % Plt Count 340 (130-400) K/uL MPV 9.2 L (9.4-12.4) fL Immature Gran % (Auto) 0.7 % Neut % (Auto) 72.5 % Lymph % (Auto) 20.4 % Miner % (Auto) 6.2 % Eos % (Auto) 0.1 % Baso % (Auto) 0.1 % Neut # (Auto) 14.69 H (1.40-6.50) K/uL Lymph # (Auto) 4.13 H (1.20-3.40) K/uL Miner # (Auto) 1.25 H (0.11-0.59) K/uL Eos # (Auto) 0.03 (0.00-0.50) K/uL Baso # (Auto) 0.03 (0.00-0.20) K/uL Immature Gran # (Auto) 0.14 (0.01-0.20) K/uL Polychromasia Ovalocytes ESR 9 (0-20) mm/hr Sodium 141 (136-145) mmol/L Potassium 4.7 (3.5-5.1) mmol/L Chloride 100 (98-107) mmol/L Carbon Dioxide 27 (21-32) mmol/L Anion Gap 14 H (3-11) BUN 11 (6-23) mg/dl Creatinine 0.84 (0.6-1.2) mg/dl Est Cr Clr Drug Dosing 79.6 ml/min eGFR 101.33 BUN/Creatinine Ratio 13.1 (10-20) Glucose 105 H (70-99(Fasting)) mg/dl Lactate 2.2 H* (0.4-2.0) mmol/L Calcium 10.5 H (8.6-10.3) mg/dl Magnesium 1.9 (1.7-2.4) mg/dl Total Bilirubin 0.5 (0.2-1.0) mg/dl AST 10 L (13-39) U/L ALT 10 (7-52) U/L Alkaline Phosphatase 40 (34-104) U/L C-Reactive Protein < 0.50 (0-0.5) mg/dl Total Protein 7.8 (6.0-8.3) gm/dl Albumin 4.8 (3.4-5.0) gm/dl Globulin 3.0 (2.5-4.0) gm/dl Albumin/Globulin Ratio 1.6 (0.9-2) Lipase 80 (11-82) U/L Procalcitonin < 0.02 (0-0.5) ng/ml HCG, Qual Negative (Negative) Urine Color Urine Appearance (Clear) Urine pH (4.5-7.5) Ur Specific [place] (1.000-1.030) Urine Protein (Negative) Urine Glucose (UA) (Negative) Urine Ketones (Negative) Urine Blood (Negative) Urine Nitrite (Negative) Urine Bilirubin (Negative) Urine Urobilinogen (Negative) Ur Leukocyte Esterase (Negative) Urine WBC (Auto) (0-5) /hpf Urine RBC (Auto) (0-2) /hpf U Hyaline Cast (Auto) (0-2) /lpf U Epithel Cells (Auto) (0-2) /hpf Urine Bacteria (Auto) (None Seen) PG Care Time/CCT Total # of Minutes Spent Total Time Spent with Patient: Total time spent is greater than 50% in coordination of care (as documented) at patient's floor/unit and/or counseling patient: Coding Level of Care Code 66213 SUB INP/OBS CARE 2/35MIN Diagnoses History of small bowel obstruction Z87.19
--- NOTE | 2024-03-26 10:10 | XRay Report ---
KUB HISTORY: Acute onset abdominal pain in a patient with history of Crohn's disease rule out SOB, hx cr ohn's COMPARISON: CT 03/25/2024 FINDINGS: Surgical suture material again noted within the abdominal right lower quadrant. Nonobstruct adrianna bowel gas pattern. Mild colonic fecal retention. No renal calculi. No ureteral calculi. No pneum operitoneum or pneumatosis. No fracture. IMPRESSION: Nonobstructive bowel gas pattern. ACT 112: Negative or not required by law. The above report was generated using voice recognition software. It may contain grammatical, syntax o r spelling errors. Electronically signed by: Lj Dumont M.D. 03/26/2024 10:09 AM
[2024-03-26] MEDS: PANTOprazole 40 MG in SYRINGE 0 ML IV SCH (10:47)
[2024-03-26] MEDS: KETOROLAC TROMETHAMINE 15 MG/ML VIAL IV PRN (11:01)
--- NOTE | 2024-03-26 11:30 | Electrocardiogram Report ---
Test Reason : Blood Pressure : */* mmHG Vent. Rate : 65 BPM Atrial Rate : 65 BPM P-R Int : 112 ms QRS Dur : 84 ms QT Int : 404 ms P-R-T Axes : * 80 37 degrees QTcB Int : 420 ms Normal sinus rhythm with sinus arrhythmia Normal ECG No previous ECGs available Confirmed by Jose A Dumont ([id number]) on 03/26/2024 11:30:25 AM Referred By: REFERRED SELF Confirmed By: Jose A Dumont
[2024-03-26 11:39] LABS: Magnesium 2.1 mg/dl (1.7-2.4)
--- NOTE | 2024-03-26 11:40 | Hospitalist Progress Note ---
Date of Service March 26, 2024 Assessment & Plan (1) Exacerbation of Crohn's disease: Plan: Acute onset of abdominal pain/nausea/vomiting on the morning of 03/25 around 0400 Recent [place] admission for SBO Leukocytosis at 20.27 (in the setting of steroid taper); afebrile Zosyn 4.5 g IV x 1 in the ED; will defer further antibiotics at this time A/P CT on arrival revealed continued inflammation/stricturing of the ascending colon GI consulted - Check KUB - no obstruction - okay for ice chips - continue Solu-Medrol 20 mg IV q8h AM CBC, BMP, CRP (2) Chest pain: Plan: EKG: SR, no signs of ischemia Trop: <2.3 Mag and K WNL Suspect GI related, encouraged ambulation (3) History of small bowel obstruction: Plan: While SBO was not revealed on imaging, patient is at high risk for recurrence given recent SBO Pantoprazole 40 mg p.o. --> IV daily IVF maintenance with LR at 90mL/hr x 2 L (4) Crohn's disease of both small and large intestine: Plan: Continue Humira - due for next dose 04/05 Plan Disposition: continued inpatient stay VTE PPx: Low risk, encourage ambulation Admission and Anticipated Discharge Date Admission Date: March 25, 2024 Supervising Physician Co-Signing Physician Notes Attending Attestation - Chart reviewed, care plan d/w SUSAN Luna. I agree w/ the canseco components of her documentation. If patient continues with chest discomfort low threshold to check echo - r/o pericardial effusion. Pericarditis can be an extra-intestinal manifestation of IBD. Appreciate GI assistance. Cont IV steroids. Keaton Rodriguez MD Subjective Seen resting in bed, father present at bedside. No BM since yesterday complaining of chest pain this morning, substernal and radiating to the back, not brought on by anything. Denies SOB, cough, fever, chills. no hx of cardiac issues Review of Systems Review of Systems: All systems reviewed & are unremarkable except as noted in Subjective Physical Exam Physical Exam: General: NAD, VS as above Resp: normal respiratory effort, lungs clear to auscultation CV: RRR, no murmur, Abd: soft, hypoactive bowel sounds, tenderness LLQ Extremities: Moves all extremities, no edema Neuro: A&O x3, Results & Data Results & Data Vital Signs (Past 12 Hours) Vital Signs Temp Pulse Resp BP Pulse Ox O2 Del Method 03/26/24 10:34 97.7 F 88 16 108/61 100 Room Air 03/26/24 07:09 98.4 F 76 14 98/57 L 99 Room Air Laboratory Results CBC, chemistry, mag and trop reviewed Diagnostic Findings EKG reviewed PG Care Time/CCT Total # of Minutes Spent Total Time Spent with Patient: Total time spent is greater than 50% in coordination of care (as documented) at patient's floor/unit and/or counseling patient: Coding Level of Care Code 91483 SUB INP/OBS CARE 3/50MIN Diagnoses Exacerbation of Crohn's disease without complication K50.90 Digestive disease complication type: without complication Chest pain R07.9 History of small bowel obstruction Z87.19 Crohn's disease of both small and large intestine with intestinal obstruction K50.819 Digestive disease complication type: unspecified complication (1) Exacerbation of Crohn's disease Digestive disease complication type: without complication Qualified Code(s): K50.90 - Crohn's disease, unspecified, without complications (4) Crohn's disease of both small and large intestine Digestive disease complication type: unspecified complication Qualified Code(s): K50.819 - Crohn's disease of both small and large intestine with unspecified complications
[2024-03-26 11:43] LABS: Troponin I High Sensitivity < 2.3 pg/ml (0-14)
[2024-03-26] MEDS: LACTULOSE SYRUP 20 GM/30 ML UDC PO ONE (16:02)
[2024-03-27 06:48] LABS: Basophils # (auto) 0.01 K/uL (0.00-0.20); Basophils % (auto) 0.1 %; Hematocrit (blood only) 32.9 % (37.0-47.0); Hemoglobin 10.2 g/dl (12.0-16.0); Immature Granulocytes # (auto) 0.04 K/uL (0.01-0.20); Immature Granulocytes % (auto) 0.4 %; Lymphocytes % (auto) 20.1 %; Mean Corpuscular Hemoglobin 25.5 pg (25.0-34.0); Mean Corpuscular Volume 82.3 fL (80.0-100.0); Mean Platelet Volume 9.6 fL (9.4-12.4); Monocytes # (auto) 0.78 K/uL (0.11-0.59); Monocytes % (auto) 7.4 %; Neutrophils # (auto) 7.54 K/uL (1.40-6.50); Platelet Count 267 K/uL (130-400); RDW Coefficient of Variation 14.8 % (11.5-14.5); White Blood Count 10.47 K/ul (4.8-10.8)
[2024-03-27 07:16] LABS: C Reactive Protein 0.98 mg/dl (0-0.5); Calcium 8.7 mg/dl (8.6-10.3); Creatinine Clr Calc Pharmacy 97.3 ml/min; Potassium 4.1 mmol/L (3.5-5.1)
[2024-03-27 07:35] LABS: Ferritin 8.3 ng/ml (8-388)
--- NOTE | 2024-03-27 09:26 | Gastroenterology Progress Note ---
<Statement entered by Nelson Martel MD - 03/27/24 14:54> Patient seen and examined. Case discussed with Adrienne MYLES. Patient's CRP is decreasing so would continue steroids and cautiously try to advance diet and us prn Bentyl. Date of Service March 27, 2024 Assessment & Plan (1) History of small bowel obstruction: Plan: 23 year old female with Crohn's disease diagnosed on colonoscopy in September 2023, recent admission for small bowel obstruction extending to the ileocecal junction w/ adjacent inflammatory change, just completed her Humira induction who presented for evaluation of worsening abd pain associated with an episode of nausea/vomiting and chills CT w/ thickening and luminal narrowing of the ascending colon and fat stranding and dilation of fecalization of the distal ileum concerning for continued inflammation/stricturing. Has had persistent pain, emesis x 1, KUB with constipation but no obstruction. She moved a very formed stool this AM without any evidence of bleeding. Advance to a low residue diet Trial of Bentyl 10 mg three times daily Miralax once daily Continue humira Agree w/ IV steroids - Methylpred 20 q8h - Consider transition to oral steroids today - Will need a slow tapering course at discharge - Prednisone 40 mg daily for 2 weeks - Prednisone 30 mg daily for 1 week - Prednisone 20 mg daily for 1 week - Prednisone 10 mg daily for 1 week - Prednisone 5 mg daily for 1 week then stop Keep HD follow up with GI in March I spent a total of 40 minutes on the date of service in review of patient's record, and previously obtained information in person and appropriate medical visit, discussion and education of plan, with patient and/or caregiver, placing orders for tests/referral/procedures as medically necessary and documentation of pertinent clinical information in patient's medical records for their visit today. Admission and Anticipated Discharge Date Admission Date: March 25, 2024 Subjective Had a BM this AM. Tolerating liquids. Requesting dietary advancements. No nausea/vomiting. No fever, chills, CP, SOB. Review of Systems Review of Systems: All other findings negative except as noted in HPI. Physical Exam Constitutional: WD/WN, vitals as above Respiratory: normal respiratory effort, lungs clear to auscultation Cardiovascular: RRR, no murmur, no edema Gastrointestinal (Abdomen): normal bowel sounds, soft, nontender, no hepatosplenomegaly Skin: no rashes, warm and dry Results & Data Results & Data Vital Signs (Past 12 Hours) Vital Signs Temp Pulse Resp BP Pulse Ox O2 Del Method 03/27/24 07:13 36.6 C 62 18 110/66 99 Room Air Laboratory Results 03/27/24 03/27/24 03/26/24 Range/Units Unknown 06:02 11:01 WBC 10.47 (4.8-10.8) K/ul RBC 4.00 L (4.20-5.40) M/uL Hgb 10.2 L (12.0-16.0) g/dl Hct 32.9 L (37.0-47.0) % MCV 82.3 (80.0-100.0) fL MCH 25.5 (25.0-34.0) pg MCHC 31.0 L (32.0-36.0) g/dL RDW Std Deviation 45.0 (36.4-46.3) fL RDW Coeff of Joshua 14.8 H (11.5-14.5) % Plt Count 267 (130-400) K/uL MPV 9.6 (9.4-12.4) fL Immature Gran % (Auto) 0.4 % Neut % (Auto) 72.0 % Lymph % (Auto) 20.1 % [place] % (Auto) 7.4 % Eos % (Auto) 0.0 % Baso % (Auto) 0.1 % Neut # (Auto) 7.54 H (1.40-6.50) K/uL Lymph # (Auto) 2.10 (1.20-3.40) K/uL [place] # (Auto) 0.78 H (0.11-0.59) K/uL Eos # (Auto) 0.00 (0.00-0.50) K/uL Baso # (Auto) 0.01 (0.00-0.20) K/uL Immature Gran # (Auto) 0.04 (0.01-0.20) K/uL Sodium 140 (136-145) mmol/L Potassium 4.1 (3.5-5.1) mmol/L Chloride 106 (98-107) mmol/L Carbon Dioxide 29 (21-32) mmol/L Anion Gap 5 (3-11) BUN 9 (6-23) mg/dl Creatinine 0.69 (0.6-1.2) mg/dl Est Cr Clr Drug Dosing 97.3 ml/min eGFR 126.55 BUN/Creatinine Ratio 13.0 (10-20) Glucose 96 (70-99(Fasting)) mg/dl Calcium 8.7 (8.6-10.3) mg/dl Magnesium 2.1 (1.7-2.4) mg/dl Iron 43 (35-150) mcg/dl TIBC 355 (250-450) mcg/dl Unsaturated IBC 312 (155-355) mcg/dl Transferrin % Sat 12 L (15-50) % Ferritin 8.3 (8-388) ng/ml Troponin I High Sens < 2.3 (0-14) pg/ml C-Reactive Protein 0.98 H (0-0.5) mg/dl Stl C. cayetanensis PCR Pending Stool Rotavirus A PCR Pending Stl Adenov F 40/41 PCR Pending Stool Astrovirus (PCR) Pending Stool Campylobacter PCR Pending Stool Cryptosporidium PCR Pending Stl E.coli Shiga Tox PCR Pending Stl Enterotoxigenic E PCR Pending Stool EAEC (PCR) Pending Stl E. histolytica PCR Pending Stool Giardia Lamblia PCR Pending Stool Salmonella PCR Pending Stool Sapovirus (PCR) Pending Stl P. shigelloides PCR Pending Stl Shigella/EIEC PCR Pending St Y.enterocolitica PCR Pending Stool Vibrio (PCR) Pending Stl Vibrio cholerae PCR Pending Stl Norovirus GI/GII PCR Pending PG Care Time/CCT Total # of Minutes Spent Total Time Spent with Patient: Total time spent is greater than 50% in coordination of care (as documented) at patient's floor/unit and/or counseling patient: Coding Level of Care Code 94727 SUB INP/OBS CARE 2/35MIN Diagnoses History of small bowel obstruction Z87.19
[2024-03-27 09:59] LABS: Adenovirus F 40/41 PCR Not Detected (NotDetected); Astrovirus PCR Not Detected (NotDetected); Campylobacter PCR Not Detected (NotDetected); Cryptosporidium PCR Not Detected (NotDetected); Cyclospora cayetanensis PCR Not Detected (NotDetected); Entamoeba histolytica PCR Not Detected (NotDetected); Enteroaggregative E.coli(EAEC) Not Detected (NotDetected); Enteropathogenic E.coli (EPEC) Not Detected (NotDetected); Enterotoxigenic E.coli (ETEC) Not Detected (NotDetected); Giardia lamblia PCR Not Detected (NotDetected); Norovirus GI/GII PCR Not Detected (NotDetected); Plesiomonas shigelloides PCR Not Detected (NotDetected); Rotavirus A PCR Not Detected (NotDetected); Salmonella PCR Not Detected (NotDetected); Sapovirus PCR Not Detected (NotDetected); Shiga-like Toxin E.coli (STEC) Not Detected (NotDetected); Shigella/Enteroinvasive E.coli Not Detected (NotDetected); Vibrio cholerae PCR Not Detected (NotDetected); Vibrio species PCR Not Detected (NotDetected); Yersinia enterocolitica PCR Not Detected (NotDetected)
[2024-03-27] MEDS: FERROUS SULFATE 325 MG TAB PO SCH (12:36)
--- NOTE | 2024-03-27 13:28 | Hospitalist Progress Note ---
Date of Service March 27, 2024 Assessment & Plan (1) Exacerbation of Crohn's disease: Plan: Acute onset of abdominal pain/nausea/vomiting on the morning of 03/25 around 0400 Recent [place] admission for SBO Leukocytosis at 20.27 (in the setting of steroid taper); afebrile Zosyn 4.5 g IV x 1 in the ED; will defer further antibiotics at this time A/P CT on arrival revealed continued inflammation/stricturing of the ascending colon GI consulted - Check KUB - no obstruction - continue Solu-Medrol 20 mg IV q8h - trial bentyl - scheduled miralax Crp downtrending (2) Chest pain: Plan: EKG: SR, no signs of ischemia Trop: <2.3 Mag and K WNL Suspect GI related, encouraged ambulation (3) History of small bowel obstruction: Plan: While SBO was not revealed on imaging, patient is at high risk for recurrence given recent SBO Pantoprazole 40 mg p.o. --> IV daily (4) Crohn's disease of both small and large intestine: Plan: Continue Humira - due for next dose 04/05 Iron deficiency anemia - mild based on iron studies - started on PO iron every other day B12/folate WNL 09/2023 Plan Disposition: continued inpatient stay VTE PPx: Low risk, encourage ambulation family updated at bedside 03/27 Admission and Anticipated Discharge Date Admission Date: March 25, 2024 Supervising Physician Co-Signing Physician Notes Attending Attestation - Chart reviewed, care plan d/w SUSAN Luna. I agree w/ the canseco components of her documentation. Appreciate GI assistance. Cont IV steroids. Ferritin noted to be <10 - consider IV venofer. Would check B12/folate levels to be complete as she is at risk of deficiencies of such. Keaton Rodriguez MD Subjective patient seen sitting up in bed, just finished lunch. No additional abdominal pain from lunch Did have 2 bowel movements today 1 was hard and very painful after that the next 1 was quite loose but still slightly painful No longer having chest pain Review of Systems Review of Systems: All systems reviewed & are unremarkable except as noted in Subjective Physical Exam Physical Exam: General: NAD, VS as above Resp: normal respiratory effort, lungs clear to auscultation CV: RRR, no murmur, Abd: soft, hypoactive bowel sounds, tenderness LLQ Extremities: Moves all extremities, no edema Neuro: A&O x3, Results & Data Results & Data Vital Signs (Past 12 Hours) Vital Signs Temp Pulse Resp BP Pulse Ox O2 Del Method 03/27/24 07:13 97.9 F 62 18 110/66 99 Room Air Laboratory Results cbc, chemistry and iron studies reviewed PG Care Time/CCT Total # of Minutes Spent Total Time Spent with Patient: Total time spent is greater than 50% in coordination of care (as documented) at patient's floor/unit and/or counseling patient: Coding Level of Care Code 97263 SUB INP/OBS CARE 3/50MIN Diagnoses Exacerbation of Crohn's disease without complication K50.90 Digestive disease complication type: without complication Chest pain R07.9 History of small bowel obstruction Z87.19 Crohn's disease of both small and large intestine with intestinal obstruction K50.819 Digestive disease complication type: unspecified complication (1) Exacerbation of Crohn's disease Digestive disease complication type: without complication Qualified Code(s): K50.90 - Crohn's disease, unspecified, without complications (4) Crohn's disease of both small and large intestine Digestive disease complication type: unspecified complication Qualified Code(s): K50.819 - Crohn's disease of both small and large intestine with unspecified complications
[2024-03-27] MEDS: ACETAMINOPHEN 500 MG TAB PO SCH (13:48)
[2024-03-27] MEDS: DICYCLOMINE HCL 10 MG CAP PO PRN (22:20)
[2024-03-28 07:07] VITALS: BP 104/63; RESP 18; TEMP 97.3; O2SAT 98
[2024-03-28] MEDS: POLYETHYLENE (MIRALAX) 17 GM PACK PO SCH (09:22)
--- NOTE | 2024-03-28 09:33 | Gastroenterology Progress Note ---
<Statement entered by Nelson Martel MD - 03/28/24 13:25> Patient seen and examined. Case discussed with Adrienne MYLES. Patient improved. OK from GI standpoint to discharge on oral steroids and she can continue her Humira and OP follow up. IP GI Service will sign off. Date of Service March 28, 2024 Assessment & Plan (1) History of small bowel obstruction: Plan: 23 year old female with Crohn's disease diagnosed on colonoscopy in September 2023, recent admission for small bowel obstruction extending to the ileocecal junction w/ adjacent inflammatory change, just completed her Humira induction March 2024 who presented for evaluation of worsening abd pain associated with an episode of nausea/vomiting and chills CT w/ thickening and luminal narrowing of the ascending colon and fat stranding and dilation of fecalization of the distal ileum concerning for continued inflammation/stricturing. Has had persistent pain, emesis x 1, KUB with constipation but no obstruction. She moved a very formed stool this AM without any evidence of bleeding. She is feeling improved with bowel rest, IV steroids and is now tolerating a low residue diet, passing stool and feels ready for discharge Low residue diet Trial of Bentyl 10 mg three times daily Miralax once daily Continue humira Will need a slow tapering course of prednisone at discharge - Prednisone 40 mg daily for 2 weeks - Prednisone 30 mg daily for 1 week - Prednisone 20 mg daily for 1 week - Prednisone 10 mg daily for 1 week - Prednisone 5 mg daily for 1 week then stop Keep HD follow up with GI in March Recall GI as needed. I spent a total of 40 minutes on the date of service in review of patient's record, and previously obtained information in person and appropriate medical visit, discussion and education of plan, with patient and/or caregiver, placing orders for tests/referral/procedures as medically necessary and documentation of pertinent clinical information in patient's medical records for their visit today. Admission and Anticipated Discharge Date Admission Date: March 25, 2024 Subjective Feeling well. Wants to go home. Tolerating low residue diet. No nausea, vomiting. Moved a BM this AM - no black or bloody stools. Review of Systems Review of Systems: All other findings negative except as noted in HPI. Physical Exam Constitutional: WD/WN, vitals as above Respiratory: normal respiratory effort, lungs clear to auscultation Cardiovascular: Rate/Rhythm: regular rate and regular rhythm Gastrointestinal (Abdomen): normal bowel sounds, soft, nontender, no hepatosplenomegaly Skin: no rashes, warm and dry Results & Data Results & Data Vital Signs (Past 12 Hours) Vital Signs Temp Pulse Resp BP Pulse Ox O2 Del Method 03/28/24 07:06 36.3 C L 65 18 104/63 98 Room Air Laboratory Results 03/27/24 Range/Units Unknown Stl C. cayetanensis PCR Not Detected (NotDetected) Stool Rotavirus A PCR Not Detected (NotDetected) Stl Adenov F 40/41 PCR Not Detected (NotDetected) Stool Astrovirus (PCR) Not Detected (NotDetected) Stool Campylobacter PCR Not Detected (NotDetected) Stool Cryptosporidium PCR Not Detected (NotDetected) Stl E.coli Shiga Tox PCR Not Detected (NotDetected) Stl Enterotoxigenic E PCR Not Detected (NotDetected) Stool EPEC (PCR) Not Detected (NotDetected) Stool EAEC (PCR) Not Detected (NotDetected) Stl E. histolytica PCR Not Detected (NotDetected) Stool Giardia Lamblia PCR Not Detected (NotDetected) Stool Salmonella PCR Not Detected (NotDetected) Stool Sapovirus (PCR) Not Detected (NotDetected) Stl P. shigelloides PCR Not Detected (NotDetected) Stl Shigella/EIEC PCR Not Detected (NotDetected) St Y.enterocolitica PCR Not Detected (NotDetected) Stool Vibrio (PCR) Not Detected (NotDetected) Stl Vibrio cholerae PCR Not Detected (NotDetected) Stl Norovirus GI/GII PCR Not Detected (NotDetected) PG Care Time/CCT Total # of Minutes Spent Total Time Spent with Patient: Total time spent is greater than 50% in coordination of care (as documented) at patient's floor/unit and/or counseling patient: Coding Level of Care Code 69990 SUB INP/OBS CARE 2/35MIN Diagnoses History of small bowel obstruction Z87.19
--- NOTE | 2024-03-28 10:18 | Discharge Summary ---
Discharge Summary Date of Service March 28, 2024 Principal Dx & Hospital Course #1 = Principal Diagnosis (1) Exacerbation of Crohn's disease: Acute onset of abdominal pain/nausea/vomiting on the morning of 03/25 around 0400 Recent [place] admission for SBO Leukocytosis at 20.27 (in the setting of steroid taper); afebrile Received Zosyn in the ED, no further antibiotics given. A/P CT on arrival revealed continued inflammation/stricturing of the ascending colon GI consulted - Check KUB - no obstruction - continue Solu-Medrol 20 mg IV q8h --> discharged with prednisone taper - trial bentyl - helpful with symptoms, Rx sent at discharge - scheduled miralax Crp downtrending Symptomatically improved and tolerating a low fiber diet. Discharged home today with GI follow-up (2) Chest pain: EKG: SR, no signs of ischemia Trop: <2.3 Mag and K WNL Suspect GI related, encouraged ambulation. no further episodes of chest pain. (3) History of small bowel obstruction: While SBO was not revealed on imaging, patient is at high risk for recurrence given recent SBO Pantoprazole 40 mg p.o. (4) Crohn's disease of both small and large intestine: Continue Humira - due for next dose 04/05 Iron deficiency anemia - mild based on iron studies - started on PO iron every other day B12/folate WNL 09/2023 Plan Disposition: Discharge to home today Notes For Next Care Provider started on steroid taper. As needed Bentyl Admission HPI Per Admitting Provider Karen is a 23-year-old female with PMH of Crohn's disease, SBO, and appendicitis. She presented for acute onset of abdominal pain/nausea/vomiting that began at 0400 on 03/25. Recent [place] admission for small bowel obstruction, and patient reports that her pain feels similar to prior. She was having small bouts of pain yesterday in the right lower quadrant, but did not have severe pain until it woke her from sleep overnight. Pain is located in her lower quadrants bilaterally. She rates the pain 8/10 at worst, 4/10 at present after receiving pain medicine in the ED. She characterizes the pain as a sharp, stabbing pain that comes on intermittently. Radiation to the lower back. She did not take any pain medicine prior to coming in. She cannot identify any alleviating or exacerbating symptoms. Patient did not take her regular morning medications today; she is still taking her steroid taper since discharge. Brennan gutierrez was also started on Humira recently on 03/08, last dose was on Monday. She reports no recent change in diet; is still eating a low fiber diet. Last BM was this morning at 7 AM (hard, formed stool; constipation). No diarrhea. No blood in the stool. She does note that she has had nausea and some vomiting throughout the week. She then had nausea and vomiting this morning, and reports that she felt "feverish" after she vomited. 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 She denies smoking, tobacco use, recent alcohol use. She denies chance of ; LMP was last week. Patient's vitals are stable at time of admission. ED course: NSS 1000 mL IV x 2 Zofran 4 mg IV Toradol 10 mg IV Acetaminophen 1000 mg IV Morphine 6 mg IV Zosyn 4.5 g IV Solu-Medrol 40 mg IV ROS: Patient endorses feeling feverish (after vomiting this morning; resolved; did not take temp at home), lightheadedness, CULVER (which patient attributes to Humira), intermittent chest palpitations (which patient attributes to prednisone), chest pressure/tightness (which patient attributes to morphine), dry cough, low/transverse abdominal pain, nausea, vomiting, and constipation. Patient denies chills, night-sweats, chest pain, SOB, hematemesis, diarrhea, change in urinary/bowel habits, blood in stool/urine, or burning with urination. Discharge Exam General: NAD, VS as above Resp: normal respiratory effort, lungs clear to auscultation CV: RRR, no murmur, Abd: soft, Normal bowel sounds, nontender Extremities: Moves all extremities, no edema Neuro: A&O x3, Discharge Plan Discharge Items Patient Disposition: Home - Self-Care Reason For Visit: CROHN'S EXACERBATION Discharge Diagnosis: Crohn's exacerbation Activity: Resume your previous activity Driving/Machine Use: No limitations Weightbearing: Full weightbearing Non-emergency contact: Primary Care Provider and Brick Handler Call non-emergency contact if: you have any medication questions, your symptoms worsen, your pain is worsening and your temperature is above 101 Follow-up/Referrals: Aminta Deleon CRNP [Nurse Practitioner] - (Keep scheduled appointment ) [facility] [Primary Care Provider] - (Please follow up with [facility] in 7-10 days for a hospital follow up.) Diet: Low Fiber and Vegetarian (Lacto-Ovo) Addtl Attending Provider Instructions: Ms. Armstrong, You were hospitalized after an exacerbation of your crohn's along with gerry andrews. You were treated with IV steroids and bowel rest and your symptoms improved you will be discharged on a steroid taper, and should continue miralax and Bentyl as needed. Steroid taper instructions: - Prednisone 40 mg daily for 2 weeks Prednisone 30 mg daily for 1 week - Prednisone 20 mg daily for 1 week - Prednisone 10 mg daily for 1 week - Prednisone 5 mg daily for 1 week then stop Recommendations: - Continue oral iron supplementation every other day, (I sent this in as a prescription but if it not covered, this can be purchased over the counter, it will say 65 or 325mg, this is the same thing.) Take with vitamin C or Cashiers juice for best absorption - Steroid taper as above - Bentyl up to 3 times a day as needed for abdominal pain - Miralax daily (I sent a prescription for this, but if not covered please purchase over the counter, generic is fine) - continue low fiber diet - continue Humira - Keep follow up with Aminta CONTACT YOUR PRIMARY CARE PROVIDER or GI provider if you experience any of the following: Shortness of breath or difficulty breathing Fevers or chills Feeling tired with normal activity or experiencing dizziness or fainting Difficulty following your treatment plan, or difficulty taking medications - worsening abdominal pain - troubles with constipation CALL 911 OR GO TO THE EMERGENCY DEPARTMENT if you experience any of the following: Severe abdominal pain or nausea/vomiting Severe chest pain, or chest pain that radiates (moves) to your jaw or arm Sudden, severe shortness of breath or difficulty breathing Thank you for allowing us to participate in your care. Pending Studies at Discharge: No Stand-Alone Forms: [email or web address], Work/School Release, Smoking Cessation Medications and DC Order Prescriptions: New ferrous sulfate 325 mg (65 mg iron) Tablet,Delayed Release (Dr/Ec) 325 mg PO Q48H Qty: 30 2RF dicyclomine 10 mg Capsule 10 mg PO TID PRN (Reason: abdominal pain) 30 Days Qty: 60 1RF polyethylene glycol 3350 [Miralax] 17 gram Powder In Packet 17 g PO DAILY Qty: 30 1RF prednisone 10 mg tablet See Taper PO DIRECTED Qty: 101 0RF Taper: Taper, Blank 40 mg DAILY for 14 Days 30 mg DAILY for 7 Days 20 mg DAILY for 7 Days 10 mg DAILY for 7 Days 5 mg DAILY for 6 Days Rx Instructions: see taper instructions Continued Humira(CF) Pen 40 mg/0.4 mL pen injector kit See Rx Instructions subcut .COMPLEX Qty: 2 8RF Rx Instructions: inject one - 40 mg/0.4 mL pen every 2 weeks subcut acetaminophen [Tylenol] 325 mg Tablet 650 mg PO QID PRN (Reason: Pain) pantoprazole 40 mg Tablet,Delayed Release (Dr/Ec) 40 mg PO QAM Qty: 30 1RF Discontinued prednisone 10 mg tablet See Rx Instructions PO DAILY Qty: 90 0RF Rx Instructions: 30 mg orally daily for 7 days; 20 mg orally daily for 7 days, 10 mg orally daily for 7 days, 5 mg orally daily for 7 days the stop Discharge Orders: Discharge Order (Routine); Ordered 03/28/24 Ordered By: Liane Hayes/Other Patient Handouts: What Is Crohn's Disease, Crohns Disease Dc, Crohns Disease Lifestyle Changes, Managing Crohn's Disease: Medicines Admission Data Admit Date/Time: 03/25/24 14:11 Attending Provider: Keaton Rodriguez Admit Provider: Keaton Zhou Primary Care Provider: [facility] Other Providers: Nelson Martel Other Interventions: Discharge Summary Assessment (RN) Last Done: 03/28/24 11:02 Hospital Stay Data Consultations 03/25/24 13:30 ED Decision to Admit Stat 03/25/24 14:01 Consult Gastroenterology Routine Diagnostic Imagining Performed Abdomen/Pelvis CT 03/25/24 09:57 CT abd pelvis IV con only CLINICAL HISTORY: Vomiting TECHNIQUE: Helical axial images of the abdomen and pelvis were obtained and displayed. Automated dose lowering techniques and/or adjustment according to patient size were utilized for this exam. This exam was performed with intravenous contrast. CT DOSE: 326.42 mGy.cm COMPARISON: Comparison is made to CT abdomen pelvis 02/28/2024 FINDINGS: Lower chest: No acute abnormality. Liver: Unremarkable. No focal lesions are seen. Gallbladder and biliary tree: No calcified gallstones. Normal caliber wall. No intra- or extrahepatic biliary ductal dilation. Pancreas: Unremarkable, no focal lesions. Spleen: Unremarkable. Adrenals: Unremarkable. Kidneys and ureters: Unremarkable. Bladder: Unremarkable. Reproductive organs: Unremarkable. Bowel: Focal thickening is seen in the ascending colon with surrounding fat stranding. Redemonstration of adjacent appendiceal stump. Again noted is fecalization of multiple loops of terminal ileum. Lymph nodes Retroperitoneal: Unremarkable. Pelvic: Unremarkable. Mesenteric: 4 mm right lower quadrant node previously measured 7 mm. Peritoneum: A small amount of fat stranding and pelvic fluid is seen. Vessels: Unremarkable. Abdominal wall: Unremarkable. Bones: Unremarkable. IMPRESSION: Again noted is thickening and luminal narrowing of the ascending colon. There is surrounding fat stranding and dilation of fecaliation of the distal ileum. Findings may represent continued inflammation/stricturing in this patient with a history of Crohn's disease. Malignancy is considered less likely given the interval decrease in size of adjacent lymph node. ACT 112: Negative or not required by law. Electronically signed by: Yusuf Kirby M.D. 03/25/2024 12:06 PM KUB X-Ray 03/26/24 09:20 KUB HISTORY: Acute onset abdominal pain in a patient with history of Crohn's disease rule out SOB, hx crohn's COMPARISON: CT 03/25/2024 FINDINGS: Surgical suture material again noted within the abdominal right lower quadrant. Nonobstructive bowel gas pattern. Mild colonic fecal retention. No renal calculi. No ureteral calculi. No pneumoperitoneum or pneumatosis. No fracture. IMPRESSION: Nonobstructive bowel gas pattern. ACT 112: Negative or not required by law. The above report was generated using voice recognition software. It may contain grammatical, syntax or spelling errors. Electronically signed by: Lj Dumont M.D. 03/26/2024 10:09 AM Pending Results Patient Have Any Pending Studies at Discharge: No Discharge Instructions Given to Patient (Per Discharging Provider) Ms. Armstrong, You were hospitalized after an exacerbation of your crohn's along with constipation. You were treated with IV steroids and bowel rest and your symptoms improved you will be discharged on a steroid taper, and should continue miralax and Bentyl as needed. Steroid taper instructions: - Prednisone 40 mg daily for 2 weeks Prednisone 30 mg daily for 1 week - Prednisone 20 mg daily for 1 week - Prednisone 10 mg daily for 1 week - Prednisone 5 mg daily for 1 week then stop Recommendations: - Continue oral iron supplementation every other day, (I sent this in as a prescription but if it not covered, this can be purchased over the counter, it will say 65 or 325mg, this is the same thing.) Take with vitamin C or Cashiers juice for best absorption - Steroid taper as above - Bentyl up to 3 times a day as needed for abdominal pain - Miralax daily (I sent a prescription for this, but if not covered please purchase over the counter, generic is fine) - continue low fiber diet - continue Humira - Keep follow up with Aminta CONTACT YOUR PRIMARY CARE PROVIDER or GI provider if you experience any of the following: Shortness of breath or difficulty breathing Fevers or chills Feeling tired with normal activity or experiencing dizziness or fainting Difficulty following your treatment plan, or difficulty taking medications - worsening abdominal pain - troubles with constipation CALL 911 OR GO TO THE EMERGENCY DEPARTMENT if you experience any of the following: Severe abdominal pain or nausea/vomiting Severe chest pain, or chest pain that radiates (moves) to your jaw or arm Sudden, severe shortness of breath or difficulty breathing Thank you for allowing us to participate in your care. Supervising Physician Co-Signing Physician Notes Attending Attestation and Discharge Note: Pt seen/examined, chart reviewed, discharge care plan d/w SUSAN Luna. I agree w/ the canseco components of her discharge documentation. 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 Treated with IV steroids & bowel rest. She improved with such. [facility] was involved in her care and provided canseco recommendations for her treatment plan. She will d/c home on a slow prednisone course and have f/u with [facility] on April 11 in the outpatient GI clinic. Of note - diet has been resumed and she is tolerating such prior to d/c home. As an aside -- Ferritin noted to be <10 - consider IV venofer as an outpatient. Will try PO Fe supplementation but if she cannot tolerate such OR if Fe levels do not improve consider IV venofer. Discharge exam: gen - NAD, looks well today mouth - MMM heart - RRR, s1 s2, no murmur lungs - CTA b/l abd - soft NT ND BS+; no HSM ext - no edema, pulses 2+ b/l Keaton Rodriguez MD Total Time Total Time Spent Total Time Spent (In Minutes): Time spent day of discharge 32 minutes including direct patient care, medication reconciliation, documentation, review of labs and images, and coordination of care. Coding Level of Care Code 92775 INP/OBS DISCH >30 MIN Diagnoses Exacerbation of Crohn's disease without complication K50.90 Digestive disease complication type: without complication Chest pain R07.9 History of small bowel obstruction Z87.19 Crohn's disease of both small and large intestine with intestinal obstruction K50.819 Digestive disease complication type: unspecified complication
[2024-03-28] MEDS ORDERED: Nursing to Pharmacy Communication SCH (11:00)
[2024-03-28 11:04] VITALS: PULSE 75
== END 2024-03-28 12:07 | disposition home or self-care (01) | DRG 387 ==
LOC: ED 09:24 → 3W 14:11 → SUATTDRO 14:11 → 3W 18:45
DX: R11.2 Nausea with vomiting, unspecified; D50.9 Iron deficiency anemia, unspecified; K50.80 Crohn's disease of both small and large intestine without complications; Z79.899 Other long term (current) drug therapy; Z87.19 Personal history of other diseases of the digestive system